=== PATIENT | female | born 1950 | race Caucasian/White ===

== ENCOUNTER 2017-12-22 01:11 | Outpatient (CLI) | payer MEDICARE, OTHER, SELFPAY ==
[2017-12-22 09:01] LABS: Anion Gap 7.6 mmol/L (3-11); BUN 14 mg/dL (7-18); CO2 31.4 mmol/L (21.0-32.0); CREATININE 0.77 mg/dL (0.55-1.02); Calcium 9.7 mg/dL (8.5-10.1); Chloride 103 mmol/L (98-107); Cholesterol 217 mg/dL (50-200); Glucose 80 mg/dL (70-100); HDL Cholesterol 54 mg/dL (40-60); LDL CHOLESTEROL 144 mg/dL (<100); Sodium 142 mmol/L (136-145); Triglyceride 96 mg/dL (30-150)
[2017-12-23 10:19] LABS: Hepatitis C Ab w Rflx HCV PCR Negative (NEGAT)
== END 2017-12-22 01:31 ==
PROVIDERS: PCP Nurse Practitioner Family; Visit Provider Nurse Practitioner Family
DX: I10 Essential (primary) hypertension (principal); E78.5 Hyperlipidemia, unspecified; Z11.59 Encounter for screening for other viral diseases
CPT/HCPCS: 36415; 80048; 80061; 83721; 86803

== ENCOUNTER 2018-11-28 02:09 | Outpatient (CLI) | payer MEDICARE, OTHER, SELFPAY ==
[2018-11-28 11:13] LABS: Anion Gap 7.3 mmol/L (3-11); BUN 15 mg/dL (7-18); CO2 31.7 mmol/L (21.0-32.0); CREATININE 0.65 mg/dL (0.55-1.02); Calcium 9.3 mg/dL (8.5-10.1); Calculated LDL 126 mg/dL; Chloride 104 mmol/L (98-107); Cholesterol 195 mg/dL (50-200); Glucose 85 mg/dL (70-100); HDL Cholesterol 53 mg/dL (40-60); Potassium 4.7 mmol/L (3.5-5.1); Sodium 143 mmol/L (136-145); Triglyceride 84 mg/dL (30-150)
== END 2018-11-28 02:29 ==
PROVIDERS: PCP Nurse Practitioner Family; Visit Provider Nurse Practitioner Family
DX: E78.5 Hyperlipidemia, unspecified (principal); I10 Essential (primary) hypertension
CPT/HCPCS: 36415; 80048; 80061

== ENCOUNTER 2019-01-16 01:09 | Outpatient (CLI) | payer MEDICARE, OTHER, SELFPAY ==
--- NOTE | 2019-01-16 16:40 | DI.DEXA_ITS ---
EXAM: XR DEXA BONE DENSITY W/WO CAL INDICATION: Postmenopausal Z78.0. COMPARISON: No exams were available for comparison FINDINGS: The CAL image shows no evidence of compression fractures. The bone mineral density measurements of the lumbar spine correspond to a total T-score of -1.4, in the osteopenic range. There are degenerat valarie changes and possible laminectomy defects at L3 and L4. The least dense vertebral body is L1 with a T-score of -2.5. Bone mineral density measurements of the left hip correspond to a total T-score of -2.4, in the osteopenic range. The bone mineral density measurements of the left forearm correspo nd to a total T-score of the distal third of -2.9, in the osteoporotic range. IMPRESSION: Osteopenia of the left hip and lumbar spine. Osteoporosis of the left forearm.
== END 2019-01-16 01:29 ==
PROVIDERS: PCP Nurse Practitioner Family; Visit Provider Nurse Practitioner Family
DX: M81.0 Age-related osteoporosis without current pathological fracture (principal); M85.88 Other specified disorders of bone density and structure, other site; Z78.0 Asymptomatic menopausal state
CPT/HCPCS: 77080

== ENCOUNTER 2019-02-09 12:45 | Outpatient (CLI) | payer MEDICARE, OTHER, SELFPAY ==
[2019-02-11 10:12] LABS: Vitamin D 25 Total 35.8 ng/ml (30-100)
== END 2019-02-09 13:05 ==
PROVIDERS: PCP Nurse Practitioner Family; Visit Provider Nurse Practitioner Family
DX: M81.0 Age-related osteoporosis without current pathological fracture (principal)
CPT/HCPCS: 36415; 82306

== ENCOUNTER 2019-12-07 02:24 | Outpatient (CLI) | payer MEDICARE, OTHER, SELFPAY ==
[2019-12-07 08:39] LABS: Anion Gap 6.6 mmol/L (3-11); BUN 16 mg/dL (7-18); CO2 28.4 mmol/L (21.0-32.0); CREATININE 0.69 mg/dL (0.55-1.02); Calcium 9.4 mg/dL (8.5-10.1); Chloride 105 mmol/L (98-107); Glucose 86 mg/dL (74-106); Sodium 140 mmol/L (136-145)
== END 2019-12-07 02:44 ==
PROVIDERS: PCP Nurse Practitioner Family; Visit Provider Nurse Practitioner Family
DX: I10 Essential (primary) hypertension (principal)
CPT/HCPCS: 36415; 80048

== ENCOUNTER 2020-10-01 15:47 | Outpatient (CLI) | payer MEDICARE, OTHER, SELFPAY ==
[2020-10-01 13:26] LABS: CREATININE 0.6 mg/dL (0.55-1.02)
[2020-10-01] MEDS: Normal Saline - Diluent 50 ML VIAL IV (14:18)
--- NOTE | 2020-10-01 14:26 | DI.CT_ITS ---
Exam(s) CT ABDOMEN PELVIS W EXAM: CT ABDOMEN PELVIS W CLINICAL HISTORY: ABD PAIN R10.9 H/O DIVERTICULITIS. TECHNIQUE: Imaging Protocol: Axial computed tomography images with coronal and sagittal reformatted images were created and reviewed CONTRAST MATERIAL: Intravenous: Omnipaque 100cc Oral: None COMPARISON: No exams were available for comparison FINDINGS: VISUALIZED LUNG BASES: No nodules nor pleural effusions evident. ABDOMEN: There is no ascites. LIVER: There is a 1.5 x 1.2 cm hypodensity in the left hepatic lobe subcapsular location, benign appe arance, either cyst or hemangioma. Difficult to differentiate single-phase study. No focal findings in the right hepatic lobe. No dilatation of intrahepatic ducts. GALLBLADDER/BILIARY: No obvious gallbladder pathology. CBD is not dilated. PANCREAS: No evidence of pancreatic mass nor dilatation of the pancreatic duct. SPLEEN: Spleen is not enlarged. No obvious intrasplenic lesions. Splenic and portal veins are paten t. ADRENALS: There are no significant adrenal masses. KIDNEYS:No cysts evident. No solid renal masses. No calculi nor hydronephrosis.. ABDOMINAL AORTA: Calcified but not enlarged LYMPH NODES:There is no retroperitineal nor paraaortic adenopathy. ABDOMINAL WALL: No evidence of significant anterior abdominal wall hernia. GI: Abundant fecal material noted in the colon. Appendix appears unremarkable. There is an abnormal appearing somewhat edematous bowel loop in the right-side of the abdomen noted which appears to be a small bowel loop. This appears significantly edematous. Also some surrounding streaking. There div erticuli in the small bowel loop noted. PELVIS: GI: No evidence of appendicitis.No evidence of sigmoid diverticulitis. LYMPH NODES: There is no intrapelvic nor inguinal adenopathy. REPRODUCTIVE: Age appropriate. No abnormal adnexal masses nor free fluid in the cul-de-sac. URINARY BLADDER: No calculi nor obvious masses evident OSSEOUS: Multilevel chronic degenerative disc disease lumbar spine. No significant osseous lesions. IMPRESSION: 1. No evidence of appendicitis nor sigmoid diverticulitis. However, there is an edematous abnormal ap pearing small bowel loop in the right-side of the abdomen which exhibits diverticuli and wall edema. There is surrounding streaking in the mesenteric fat. Surgical consultation is recommended. 2. Solitary benign appearing subcapsular 15 x 12 millimeter left hepatic lobe lesion as described abo ve, probably an hemangioma. 3. Close follow-up recommended. Recommend surgical consultation. RADIATION DOSE DELIVERED: 635.16mGy.cm Total DLP DATA REPOSITORY: All CT scans at this facility are submitted to the National Radiology Data Registry (NRDR) Dose Index Registry (DIR) with the [employer] (ACR). RADIATION OPTIMIZATION: All CT scans at this facility use at least one of these dose optimization te chniques: automated exposure control; mA and/or kV adjustment per patient size (includes targeted exa ms where dose is matched to clinical indication); or iterative reconstruction.
[2020-10-01] MEDS: Breeza Beverage 473 ML BTL PO ×2 (14:30→14:34)
[2020-10-01] MEDS: Omnipaque 350 MG/ML 100 ML BTL IJ (14:30)
--- NOTE | 2020-10-01 15:26 | DI.VRAD_ITS ---
PROCEDURE INFORMATION: Exam: CT Abdomen And Pelvis With Contrast Exam date and time: 10/01/2020 2:28 PM Age: 70 years old Clinical indication: Abdominal pain TECHNIQUE: Imaging protocol: Computed tomography of the abdomen and pelvis with contrast. Total images: 1165 COMPARISON: No relevant prior studies available. FINDINGS: Liver: There is a low-density lesion in the left liver, likely a cyst or hemangioma. Gallbladder and bile ducts: Normal. No calcified stones. No ductal dilation. Pancreas: Normal. No ductal dilation. Spleen: Normal. No splenomegaly. Adrenal glands: Normal. No mass. Kidneys and ureters: Normal. No hydronephrosis. Stomach and bowel: Unremarkable. No obstruction. No mucosal thickening. Appendix: No evidence of appendicitis. Intraperitoneal space: Unremarkable. No free air. No significant fluid collection. Vasculature: The aorta demonstrates moderate atherosclerotic calcification. Lymph nodes: Unremarkable. No enlarged lymph nodes. Urinary bladder: Unremarkable as visualized. Reproductive: Unremarkable as visualized. Bones/joints: Moderate degenerative changes. No acute fracture. Soft tissues: Unremarkable. IMPRESSION: No acute disease in abdomen or pelvis. Dictated and Authenticated by: Ramos Cm MD. Ordering:ALE Ford MD
== END 2020-10-01 16:07 ==
PROVIDERS: PCP Nurse Practitioner Family; Visit Provider Physician Assistant Medical
DX: Z13.9 Encounter for screening, unspecified (principal); K76.9 Liver disease, unspecified; K57.90 Diverticulosis of intestine, part unspecified, without perforation or abscess without bleeding; R60.0 Localized edema
CPT/HCPCS: 74177; 82565; J3490

== ENCOUNTER → 2020-10-02 10:01 | Outpatient (BNVA) | payer MEDICARE, OTHER, SELFPAY | PROVIDERS: PCP Nurse Practitioner Family; Referring Provider Nurse Practitioner Family; Visit Provider Surgery | DX: R93.89 Abnormal findings on diagnostic imaging of other specified body structures (principal); K57.12 Diverticulitis of small intestine without perforation or abscess without bleeding ==

== ENCOUNTER 2020-10-02 10:50 | Outpatient (REF) | payer MEDICARE, OTHER, SELFPAY ==
[2020-10-02 11:32] LABS: Abs Immature Grans 0.04 10^3/uL (0.0-0.06); Absolute Basophil Count 0.05 10^3/uL (0.0-0.2); Absolute Monocyte Count 0.82 10^3/uL (0.1-0.8); Absolute Neutrophil Count 10.56 10^3/uL (1.2-6.7); Basophils % 0.4; Eosinophils % 0.5; HCT 39.1 % (36.0-46.0); HGB 12.8 g/dL (11.2-15.7); Immature Grans % 0.3; MCH 29.1 pg (27.0-33.0); MCHC 32.7 % (32.0-36.0); MCV 88.9 fL (80-95); Monocytes % 6.3; Neutrophils % 81.5; Nucleated RBC 0 %; Platelet Count 166 10^3/uL (130-400); RDW 12.9 % (11.7-14.6); RDW-SD 42.1 fL; WBC 12.96 10^3/uL (4.4-10.8)
[2020-10-02 11:34] LABS: Absolute Eosinophil Count 0.06 10^3/uL (0.0-0.7); Absolute Lymphocyte Count 1.43 10^3/uL (1.2-3.4)
[2020-10-02 11:38] LABS: C-Reactive Protein 15.62 mg/dL (0.0-0.3)
[2020-10-02 16:27] LABS: BUN 13 mg/dL (7-18); CREATININE 0.8 mg/dL (0.55-1.02); Calcium 9.7 mg/dL (8.5-10.1); Chloride 102 mmol/L (98-107); Glucose 81 mg/dL (74-106); Magnesium 2.6 mg/dL (1.8-2.4); Sodium 139 mmol/L (136-145)
[2020-10-03 16:45] LABS: Prolactin 5.1 ng/mL (See Table)
== END 2020-10-02 10:51 | disposition home or self-care (01) ==
LOC: LBN 10:50
PROVIDERS: PCP Nurse Practitioner Family; Visit Provider Surgery
DX: K57.30 Diverticulosis of large intestine without perforation or abscess without bleeding (principal); K21.9 Gastro-esophageal reflux disease without esophagitis; R93.89 Abnormal findings on diagnostic imaging of other specified body structures; M81.0 Age-related osteoporosis without current pathological fracture; I10 Essential (primary) hypertension
CPT/HCPCS: 80048; 83735; 84146; 85025; 86140

== ENCOUNTER 2020-10-02 11:33 | Inpatient (IN) | payer MEDICARE, OTHER, SELFPAY ==
--- NOTE | 2020-10-02 12:49 | HPE_ITS ---
Date of service: 10/02/20 Time of Service: 12:49 Assessment and Plan Assessment and plan (1) Chronic GERD: Status: Acute (2) Osteoporosis: Status: Chronic (3) Glaucoma of right eye: Status: Chronic (4) GERD with esophagitis: Status: Chronic (5) Essential hypertension: Status: Chronic (6) Diverticulitis of jejunum: Status: Acute Assessment and plan: Antibiotics Supportive care We will monitor. If her condition does not improve she may require surgical intervention. History of Present Illness Consults Consult date: 10/02/20 Narrative: Patient was seen in the office today and admitted from my office. Her signs and symptoms started on Tuesday. She had some sharp abdominal pain. It is in the mid umbilical portion of the abdomen. Eating makes it worse. She has no appetite. She is nauseated when she eats. She has not had any diarrhea or rectal bleeding. She has not vomited. She felt chills. Tuesday the pain was very sharp and she went to urgent care. She did have a CT with contrast. They did not do a CBC. She is not febrile today in the office. I did review the CT with Dr. Beyer from radiology and it does appear that she has an infected diverticulum of the jejunum. Patient has localized rebound and guarding in the periumbilical region. She does have good bowel sounds. She is passing gas. She is not distended and has no diffuse peritonitis. She is not vomiting. She does have a low-grade white count and a elevated CRP. She denies any trauma. She denies any travel. No one else at home is ill. She has had no recent changes in her medications. She has not been camping. She has never had anything like this before. She does have a history of sigmoid diverticula and diverticulitis. She is not had any prior abdominal surgery. She will be admitted to the hospital for IV antibiotics and observation. Review of Systems All systems reviewed & are unremarkable except as noted in HPI and below [facility] Medical History Essential hypertension GERD with esophagitis Glaucoma of right eye Hyperlipidemia Osteoporosis Dexa 01/2019 Primary osteoarthritis of right knee Sigmoid diverticulosis Surgical History History of bilateral tubal ligation (~12/1978) History of esophagogastroduodenoscopy (EGD) (01/19/13) S/P colonoscopy (01/19/13) S/P excision of lipoma (~2002) of left medial thigh Family History Mother , at 91 Depression Hyperlipidemia Breast cancer x 2; in her 40s Stroke Hypertension Father No problems noted. Son No problems noted. Son No problems noted. Maternal Grandfather , in his 70s of [place] Myocardial infarction Hyperlipidemia Maternal Grandmother Hyperlipidemia Heart disease Hypertension Cancer Doesn't know which type Paternal Grandfather No problems noted. Paternal Grandmother No problems noted. Social History Smoking/Tobacco Use Status: Former Tobacco Use Tobacco: How many years used: 7 (quit smoking in 1974. ) Smoking risk assessment performed?: Yes Alcohol Intake: current Alcohol Intake frequency: a few times a month Drug use: Never Substance use type: does not use Pets and animals: No What type of physical activity do you participate in: none Dinora/Mu-Ism: Confucianism Special dinora needs: No Female Reproductive History Menstrual Menopause type: natural History History 2 Para 2 Hx # Term Pregnancies Multiple births Hx # Pregnancies Ectopic pregnancies AB induced Hx Number of Living Children 2 AB spontaneous Meds Allergies and Home Medications Allergies Allergy/AdvReac Type Severity Reaction Status Date / Time ciprofloxacin Allergy Severe effects Verified 10/02/20 10:11 my tendons, causes pain in legs. Home Medications Medication Instructions Recorded Confirmed Type timolol maleate 1 drp OPHTHALMIC BID drp 11/03/16 12/13/19 History latanoprost 0.005 % eye drops 1 drp OP BID ml 12/06/18 12/13/19 History Daily calcium and D3 600 mg PO 12/13/19 History diphenhydramine 25 1 tab PO ONCE tab 12/13/19 12/13/19 History mg-acetaminophen 500 mg tablet famotidine 10 mg tablet 10 mg PO DAILY PRN 12/13/19 12/13/19 History multivitamin 1 tab PO DAILY 12/13/19 12/13/19 History naproxen sodium 220 mg capsule 220 mg PO BID PRN 12/13/19 12/13/19 History simethicone 125 mg capsule 125 mg PO QD-BID PRN 12/13/19 12/13/19 History vit C 250 mg-vit E 90 mg-zinc 40 1 tab PO ONCE cap 12/13/19 12/13/19 History mg-copper 1 [id number] capsule varicella-zoster glycoE [id number] 0.5 ml IM ONCE #1 each 12/14/19 12/14/19 Rx adj(PF) 50 mcg/0.5 mL IM suspyonatan alendronate 70 mg tablet 70 mg PO QWEEK #13 tab 05/09/20 Rx lisinopril 2.5 mg tablet 2.5 mg PO DAILY #90 tab-cap 06/23/20 Rx Exam Const General: cooperative, healthy appearing, comfortable, no acute distress, well developed and well groomed Nutritional Appearance: average body habitus and well nourished Orientation: alert, awake and oriented x3 HENMT Head: normal to inspection, normocephalic and atraumatic Ears: hearing grossly normal bilaterally and external ears normal General nose exam: external nose normal Face and sinus: normal facial exam and sinuses nontender Mouth: oral mucosae normal, lip normal, tongue normal and moist mucous membranes Teeth and gingiva: dentition normal Eyes General: appearance normal, both eyes and all related structures Conjunctivae: conjunctivae normal Sclera: sclerae normal Pupils: PERRL Neck Neck: normal visual inspection and full ROM Chest Chest: normal inspection of the chest Resp Effort & Inspection: normal respiratory effort, able to speak in complete sentences, no cough, no nasal flaring, not tachypneic and no use of accessory muscles Auscultation: clear to auscultation bilaterally, no rales, no rhonchi and no wheezes Cardio Jugular venous pressure: no JVD Rate: regular rate Rhythm: regular rhythm GI Inspection: normal to inspection, no edema and distended Palpation: soft, no masses, tender periumbilically and No ascites Auscultation: normal bowel sounds Skin General skin exam: no rashes or lesions noted Trauma: no lacerations or abrasions Neuro General: patient alert, patient oriented x3, oriented, gait normal, moves all extremities, no focal motor deficits and CN's II-XI intact bilaterally Cognition: normal cognition Speech: speech normal Gait: normal gait Motor: muscle tone normal throughout Extrem General: normal to inspection, full ROM and no clubbing, cyanosis or edema Psych Appearance: grossly normal and well kempt Mental Status: mental status grossly normal Speech and Movement: speech and movement normal Affect: normal affect
[2020-10-02 13:40] VITALS: BP 123/86; PULSE 83; RESP 18; TEMP 36.4; O2SAT 96
[2020-10-02] MEDS: Pantoprazole 40 MG VIAL IVP (14:30)
[2020-10-02] MEDS: Normal Saline Flush 10 ML SYR IVP (14:30)
[2020-10-02] MEDS: Normal Saline 1,000 ML 75 ML IV (14:31)
[2020-10-02] MEDS: PIPERACILLIN/TAZO 3.375 GM in Normal Saline 50 ML IVPB ×2 (14:31→18:21)
[2020-10-02 14:39] VITALS: BP 123/86; PULSE 83; RESP 18; TEMP 36.4; O2SAT 96
[2020-10-02 15:07] LABS: Source Nasal/Nares
[2020-10-02 16:00] LABS: COVID-19 PCR Negative (Negative)
[2020-10-02 16:45] VITALS: BP 117/71; PULSE 73; RESP 16; TEMP 36.9; O2SAT 100
[2020-10-03 01:08] VITALS: BP 112/62; PULSE 84; RESP 18; TEMP 36.7; O2SAT 97
[2020-10-03] MEDS: PIPERACILLIN/TAZO 3.375 GM in Normal Saline 50 ML IVPB ×2 (02:37→09:51)
[2020-10-03] MEDS: Normal Saline 1,000 ML 75 ML IV (02:44)
[2020-10-03 07:29] LABS: Abs Immature Grans 0.01 10^3/uL (0.0-0.06); Absolute Basophil Count 0.04 10^3/uL (0.0-0.2); Absolute Eosinophil Count 0.12 10^3/uL (0.0-0.7); Absolute Lymphocyte Count 1.36 10^3/uL (1.2-3.4); Absolute Monocyte Count 0.63 10^3/uL (0.1-0.8); Absolute Neutrophil Count 4.79 10^3/uL (1.2-6.7); Basophils % 0.6; Eosinophils % 1.7; HCT 32.8 % (36.0-46.0); HGB 10.8 g/dL (11.2-15.7); Immature Grans % 0.1; Lymphocytes % 19.6; MCH 29.4 pg (27.0-33.0); MCHC 32.9 % (32.0-36.0); MCV 89.4 fL (80-95); MPV 11.1 fL (8.0-11.0); Monocytes % 9.1; Neutrophils % 68.9; Nucleated RBC 0 %; Platelet Count 139 10^3/uL (130-400); RBC 3.67 10^6/uL (3.93-5.22); RDW 12.8 % (11.7-14.6); RDW-SD 42.4 fL; WBC 6.95 10^3/uL (4.4-10.8)
[2020-10-03 07:46] LABS: BUN 10 mg/dL (7-18); C-Reactive Protein 10.16 mg/dL (0.0-0.3); CREATININE 0.6 mg/dL (0.55-1.02); Chloride 109 mmol/L (98-107); Glucose 80 mg/dL (74-106); Potassium 3.9 mmol/L (3.5-5.1); Sodium 144 mmol/L (136-145)
[2020-10-03 08:10] VITALS: BP 127/78; PULSE 70; RESP 18; TEMP 36; O2SAT 98
[2020-10-03] MEDS: Pantoprazole 40 MG VIAL IVP (08:49)
[2020-10-03] MEDS: Normal Saline Flush 10 ML SYR IVP (08:50)
[2020-10-03] MEDS: Enoxaparin 40 MG/0.4 ML SYR SC (08:50)
[2020-10-03] MEDS: Timolol 0.5% 5 ML BTL OP (08:50)
--- NOTE | 2020-10-03 11:52 | W.PM.PROGNOT ---
Date of Service Date of service: 10/03/20 Time of Service: 09:53 Assessment and Plan Assessment and plan (1) Diverticulitis of jejunum: Status: Acute Assessment and plan: -Significant clinical improvement -Continue IV antibiotics while inpatient -Likely DC on PO antibiotics and bland/soft diet -AM labs reviewed, leukocytosis resolved, CRP trending down -PRN analgesia as written -Continue supportive care, no surgical intervention as long as clinical improvement continues (2) Chronic GERD: Status: Acute (3) Essential hypertension: Status: Chronic (4) Hyperlipidemia: Status: Chronic Qualifiers: Hyperlipidemia type: unspecified Qualified Code(s): E78.5 - Hyperlipidemia, unspecified Subjective Subjective Interval history since last seen: Patient reports significant overall improvement in abdominal discomfort. She is tolerating a liquid diet, denies and nausea or vomiting. Last BM yesterday AM. Reports she has been under an immense amount of stress recently at home and being in the hospital has provided her with some relief of that. Exam Const General: cooperative, healthy appearing, comfortable and no acute distress Resp Effort & Inspection: normal respiratory effort and no audible wheezes Cardio Rate: regular rate Rhythm: regular rhythm GI Inspection: normal to inspection and non-distended Palpation: soft, no guarding and nontender Percussion: normal to percussion Objective Last Vital Signs Temp 96.8 F L 10/03/20 08:10 Pulse 70 10/03/20 08:10 Resp 18 10/03/20 08:10 BP 127/78 10/03/20 08:10 Pulse Ox 98 10/03/20 08:10 Laboratory Results - last 24 hr 10/02/20 10/03/20 10/03/20 14:58 06:50 06:50 WBC 6.95 D RBC 3.67 L Hgb 10.8 L Hct 32.8 L MCV 89.4 MCH 29.4 MCHC 32.9 RDW 12.8 Plt Count 139 MPV 11.1 H Immature Gran % 0.1 Neutrophils % 68.9 Lymphocytes % 19.6 Monocytes % 9.1 Eosinophils % 1.7 Basophils % 0.6 Nucleated RBC % 0 Absolute Neutrophils 4.79 Absolute Lymphocytes 1.36 Absolute Monocytes 0.63 Absolute Eosinophils 0.12 Absolute Basophils 0.04 Sodium 144 Potassium 3.9 Chloride 109 H Carbon Dioxide 26.0 Anion Gap 9.0 BUN 10 Creatinine 0.6 Estimated GFR/1.73 m2 >= 60.00 Glucose 80 Calcium 8.0 L C-Reactive Protein 10.16 H COVID-19 Source Nasal/Nares SARS-CoV-2 (PCR) Negative
--- NOTE | 2020-10-03 12:20 | INITIAL_ITS ---
- If Service Date Differs Date of service: 10/03/20 Time of Service: 12:20 Care Management Initial Assess REASON FOR HOSPITALIZATION:: Jejunal Diverticulitis PAST MEDICAL HISTORY/PAST SURGICAL HISTORY:: Medical History . Essential hypertension. GERD with esophagitis. Glaucoma of right eye. Hyperlipidemia. Osteoporosis. Dexa 01/2019. Primary osteoarthritis of right knee. Sigmoid diverticulosis. Julien rgical History . History of bilateral tubal ligation (~12/1978). History of esophagogastroduodenoscopy (EGD) (01/19/13). S/P colonoscopy (01/19/13). S/P excision of lipoma (~2002) PREVIOUS FUNCTIONAL STATUS/SOCIAL/FAMILY SUPPORTS:: Stephanie lives in [facility] with her Scott. They have 2 adult sons who are very supportive. 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 She is independent with all care and activities and receives no community services. CURRENT FUNCTIONAL STATUS:: Thao was dressed and ready for discharge when CM met with her. She was pleasant and engaged readily with CM. She had completed her antibiotic treatment and was anxious to go home. Thao assured CM that she has good support at home and will not require any services at discharge. ADVANCE DIRECTIVES:: None on file Has patient been provided with info about the portal/API?: Yes Did the patient sign up for the portal?: No CODE STATUS:: Full Code INSURANCE COVERAGE / FINANCIAL ISSUES:: Medicare. [employer] PRIMARY CARE PHYSICIAN:: Laurence Berry POTENTIAL DISCHARGE NEEDS:: Follow up with PCP and discharge plan of care PATIENT/FAMILY EDUCATION NEEDS:: Review of discharge instructions, medications, follow up plan, limitations, activity, Ask Me Three TRANSPORTATION:: via private vehicle with family PLAN:: Thao will be discharged home with no new services. She will follow up with her community providers and plan of care and transport with her .
--- NOTE | 2020-10-03 14:42 | CHAPLAIN ---
Stephanie was sitting on the edge of her bed using her IS, because she choose to, she said. She was very pleasant and said she appreciated knowing that there is a mold designer available to her.
--- NOTE | 2020-10-03 15:09 | W.PM.DS.N ---
Date of service: 10/03/20 Time of Service: 15:09 DS: Diagnosis Discharge Diagnosis (1) Diverticulitis of jejunum: Status: Acute (2) Chronic GERD: Status: Acute (3) Essential hypertension: Status: Chronic (4) Hyperlipidemia: Status: Chronic Discharge Plan Disposition Patient Disposition: HOME Condition: Improving Discharge Details Reason For Visit: Jejunal Diverticulitis Admit Date/Time: 10/02/20 11:33 Admit Provider: Jenni Ramos Attending Provider: Jenni Ramos Primary Care Provider: Leanne Berry Home Meds and New Rx's Prescriptions: New amoxicillin-pot clavulanate [Augmentin] 875-125 mg tablet 1 tab PO Q12H 6 Days Qty: 12 RF: 0 Bio-K plus 50 billion cell capsule,delayed release(DR/EC) 1 cap PO DAILY Qty: 30 RF: 0 dicyclomine 10 mg capsule 10 mg PO QID PRN (Reason: abdominal discomfort) Qty: 30 RF: 0 Continued latanoprost 0.005 % drops 1 drp OP BID RF: 0 multivitamin [Daily Multi-Vitamin] Tablet 1 tab PO DAILY RF: 0 PreserVision AREDS-2 100-870-90-1 bw-jrka-mh-mg capsule 1 tab PO ONCE RF: 0 naproxen sodium [Aleve] 220 mg capsule 220 mg PO PRN PRNRF: 0 famotidine [Acid Family Dinner Service Specialist (famotidine)] 10 mg tablet 10 mg PO PRN PRNRF: 0 timolol maleate 5 ML gel forming solution 1 drp Ophthalmic BID RF: 0 alendronate 70 mg tablet 70 mg PO QWEEK Qty: 13 RF: 4 lisinopril 2.5 mg tablet 2.5 mg PO DAILY Qty: 90 RF: 4 Discharge Instructions Additional Instructions: Keep an ice bag on the incision. 20 minutes on and 20 minutes off. Ice keeps the swelling down and swelling causes pain. Make sure you wrap the ice pack in a towel and don't apply directly to the skin. -No driving x 24hrs or of you are taking pain medications. -tylenol or Bentyl for cramping. -Follow-up with Dr. Ramos 10/09 at 13:30pm. Have labs drawn prior to appt. -soft diet: No beef/pork raw vegetables x1 -week. Cooked vegetables are fine -no straining to move bowels -It is ok to bathe. -Protein supplements daily. You may find that your appetite is smaller. Eat 3-6 small meals throughout the day. It is important to drink lots of water after surgery, 6-10 glasses a day. -If you were given an incentive spirometry (breathing swimming pool salesperson?), continue to do this 10x/hour while awake. -We do want you up walking, at least 5-6 times per day. This is very important to prevent pneumonia and blood clots. You can climb stairs, take them slowly. -You may find that you are very tired after illness- this is normal. -Finish all the antibiotics that were prescribed. Probiotics and yogurt daily while on antibiotics. Gastrointestinal Soft Diet Overview Overview What is a gastrointestinal soft diet? This diet is soft in texture, low in fiber, and easy to digest. The goal is to decrease) in the bowel that may cause and discomfort. This diet is often used after abdominal surgery or as a transitional diet after flares. Meats & Meat Substitutes ? Foods Allowed: Chicken, turkey, fish, ground meats, eggs, creamy nut butters, tofu, skinless hot dogs, sausage patties without whole spices ? Foods to Avoid : Tough, fibrous meats with gristle, meat with casings (hot dogs, sausage, kielbasa), lunch meats with whole spices, shellfish, beans, chunky peanut butter, nuts Fruits and Juices ? Foods Allowed: Fruit juices without pulp, banana, avocado, applesauce, canned peaches and pears, cooked fruit without the skin/seeds ? Foods to Avoid: Juices with pulp, fresh fruit (except banana and avocado), dried fruits, canned fruit cocktail and pineapple, coconut, frozen/thawed berries Vegetables ? Foods Allowed: Well-cooked or canned vegetables, potatoes without skin, tomato sauces, vegetable juice ? Foods to Avoid: Raw vegetables, all corn, all mushrooms, stewed tomatoes, potato skins, stir-marie vegetables, sauerkraut, pickles, olives, all dried beans, peas, and legumes Cereals and Grains ? Foods Allowed: Low- fiber dry or cooked cereals (less than 2 grams fiber per serving), white rice, pasta, macaroni, or noodles ? Foods to Avoid: Cereals with nuts, berries, dried fruits, whole grain cereals, bran cereals, granola, brown or wild rice, whole grain pasta Breads and Crackers ? Foods Allowed: no bread/crackers/chips. ? Foods to Avoid: Whole grain breads- including white whole grain; bread/ rolls with raisins, nuts or seeds, multi-grain crackers Dairy ? Foods Allowed: Milk, cheese, yogurt, milkshakes, pudding, ice cream, cottage cheese, sherbet ; lactose free or low lactose versions if lactose intolerant ? Foods to Avoid: Dairy product mixed with fresh fruit (except banana), berries, nuts or seeds Desserts ? Foods Allowed: Plain cake, pudding, custard, ice cream, sherbet, gelatin, fruit whips ? Foods to Avoid: Any dessert that contains nuts, dried fruits, coconut, or fruits with seeds Herbs and Spices ? Foods Allowed: All ground spices or herbs, salt ? Foods to Avoid: Whole spices such as peppercorns, whole cloves, anise seeds, celery seeds, jordyn, fer seeds, and fresh herbs Snacks/Other Foods ? Foods Allowed: Sugar, honey, jelly, mayonnaise, mustard, soy sauce, oil, butter, margarine, marshmallows, cookies without dried fruits or nuts, snack chips and pretzels using refined flours ? Foods to Avoid: Carbonated beverages, jams or jellies with seeds, popcorn After several weeks, slowly start to reintroduce the ?Foods to Avoid? back into your diet unless your doctor has told you otherwise. Try a small portion of one of these foods each day. If it does not bother you within 24 hours, it can be added to your diet. Continue to add new foods in this way. Some people may continue to have food sensitivities and may need to continue to avoid certain foods. If you cannot tolerate a food, avoid that food for a few weeks before you try it again. Guidelines when eating 1. Avoid any food that you cannot tolerate or that causes gas, bloating, or stomach pain. 2. Make time for your meals. Do not eat while you are in a hurry. Cut your food into small pieces. Chew each bite to a mashed potato consistency. Do not eat when you cannot concentrate on chewing well. 3. Drink at least 6-8 cups of fluid per day Fluids include: water, coffee, tea, juice, milk, popsicles, soups, gelatin, pudding, ice cream, sherbet, and yogurt. In addition, choose caffeine-free beverages more often, especially if you are having diarrhea. 4. A daily multivitamin may be recommended if diet is limited in amounts or variety of foods. Do not take any herbal supplements without first checking with your doctor. Activity:: see above Equipment/Supplies:: No Equipment Needed Diet:: soft diet x 1 week DS: Summary Time Spent with Patient providing and/or coordinating discharge services: Less than 30 minutes Status at Discharge Functional status at discharge: independent ambulation Overall status at discharge: patient is progressing back to baseline Mental Status: mental status grossly normal Speech and Movement: speech and movement normal Mood: congruent mood Affect: normal affect Exam Psych Mental Status: mental status grossly normal Speech and Movement: speech and movement normal Mood: congruent mood Affect: normal affect DS: Data Vitals/I&O Vitals and I&O: Vital Signs Temperature 36.0 C L 10/03/20 08:10 Temperature Source Tympanic 10/03/20 08:10 Pulse 70 10/03/20 08:10 Pulse Rhythm Regular 10/03/20 08:46 Respiratory Rate 18 10/03/20 08:10 Respiratory Effort Non-Labored 10/03/20 08:46 Respiratory Depth Normal 10/03/20 08:46 Respiratory Pattern Normal 10/03/20 08:46 Blood Pressure 127/78 10/03/20 08:10 Pulse Oximetry 98 10/03/20 08:10 Oxygen Delivery Method Room Air 10/03/20 08:10 Oxygen Flow Rate 0 10/03/20 08:10 Pain Level 0 10/03/20 11:36 Comment 10/03/20 11:36 Intake & Output 10/02/20 10/03/20 10/03/20 23:59 11:59 23:59 Intake Total 1440 / 1440 2000.00 / 2300.00 300 / 2300.00 Output Total 1800 / 1800 1300 / 1300 Balance -360 / -360 700.00 / 1000.00 300 / 1000.00 Weight 57.2 kg Intake: IV 130 / 130 1520.00 / 1520.00 Oral 1310 / 1310 480 / 780 300 / 780 Output: Urine 1800 / 1800 1300 / 1300 Other: Urine Color Yellow Yellow Urine Appearance Clear Clear Urine Odor None Normal Comment Void x1 in the toilet. Voiding Methods Toilet Toilet Data Completed and Pending Labs on day of discharge: Labs from last 24 hours 10/03/20 10/03/20 10/02/20 06:50 06:50 14:58 WBC 6.95 D RBC 3.67 L Hgb 10.8 L Hct 32.8 L MCV 89.4 MCH 29.4 MCHC 32.9 RDW 12.8 Plt Count 139 MPV 11.1 H Immature Gran % 0.1 Neutrophils % 68.9 Lymphocytes % 19.6 Monocytes % 9.1 Eosinophils % 1.7 Basophils % 0.6 Nucleated RBC % 0 Absolute Neutrophils 4.79 Absolute Lymphocytes 1.36 Absolute Monocytes 0.63 Absolute Eosinophils 0.12 Absolute Basophils 0.04 Sodium 144 Potassium 3.9 Chloride 109 H Carbon Dioxide 26.0 Anion Gap 9.0 BUN 10 Creatinine 0.6 Estimated GFR/1.73 m2 >= 60.00 Glucose 80 Calcium 8.0 L C-Reactive Protein 10.16 H SARS-CoV-2 (PCR) Negative [facility] Medical History Essential hypertension GERD with esophagitis Glaucoma of right eye Hyperlipidemia Osteoporosis Dexa 01/2019 Primary osteoarthritis of right knee Sigmoid diverticulosis Surgical History History of bilateral tubal ligation (~12/1978) History of esophagogastroduodenoscopy (EGD) (01/19/13) S/P colonoscopy (01/19/13) S/P excision of lipoma (~2002) of left medial thigh Family History Mother , at 91 Depression Hyperlipidemia Breast cancer x 2; in her 40s Stroke Hypertension Father No problems noted. Son No problems noted. Son No problems noted. Maternal Grandfather , in his 70s of [place] Myocardial infarction Hyperlipidemia Maternal Grandmother Hyperlipidemia Heart disease Hypertension Cancer Doesn't know which type Paternal Grandfather No problems noted. Paternal Grandmother No problems noted. Social History Smoking/Tobacco Use Status: Former Tobacco Use Tobacco: How many years used: 7 Smoking risk assessment performed?: Yes Alcohol Intake: current Alcohol Intake frequency: a few times a month Alcohol type: beer Drug use: Never Substance use type: does not use Pets and animals: No What type of physical activity do you participate in: none Dinora/Anglican: Pentecostalism Special dinora needs: No Do you feel safe at home: Yes Do you feel safe in your relationship?: Yes Female Reproductive History Menstrual Menopause type: natural History History 2 Para 2 Hx # Term Pregnancies Multiple births Hx # Pregnancies Ectopic pregnancies AB induced Hx Number of Living Children 2 AB spontaneous
[2020-10-03 16:00] VITALS: BP 103/69; PULSE 76; RESP 18; TEMP 36.9; O2SAT 94
--- NOTE | 2020-10-04 00:10 | PDOC.CMDIS ---
- If Service Date Differs Date of service: 10/04/20 Time of Service: 17:00 LACE Index Scoring Tool - Questions: Length of Stay (in days): 1 Acuity (Admit via E.D.?): Yes E.D. Visits: 0 - Answers: Total Score: 4 Risk of Readmission: Low Risk Care Management Discharge Reason for Hospitalization: Jejunal Diverticulitis Discharge Plan: Thao will be discharged with no home services. She will follow up with her surgeon and plan of care and transport with her . Patient/Family Education Needs: Review of discharge instructions, medications, diet, activity and ask Me Three
== END 2020-10-03 16:51 | disposition home or self-care (01) | DRG 392 ==
PROVIDERS: Admitting Provider Surgery; PCP Nurse Practitioner Family; Visit Provider Surgery
DX: K57.12 Diverticulitis of small intestine without perforation or abscess without bleeding (principal); M81.0 Age-related osteoporosis without current pathological fracture; H40.89 Other specified glaucoma; K21.00 Gastro-esophageal reflux disease with esophagitis, without bleeding; I10 Essential (primary) hypertension; E78.5 Hyperlipidemia, unspecified; K57.30 Diverticulosis of large intestine without perforation or abscess without bleeding; Z87.891 Personal history of nicotine dependence; Z20.822 Contact with and (suspected) exposure to COVID-19
CPT/HCPCS: 36415; 80048; 87635; 99222; 99238; J1650; 85025; 86140; J2543

== ENCOUNTER 2020-10-09 03:48 | Outpatient (CLI) | payer MEDICARE, OTHER, SELFPAY ==
[2020-10-09 13:02] LABS: Abs Immature Grans 0.02 10^3/uL (0.0-0.06); Absolute Basophil Count 0.05 10^3/uL (0.0-0.2); Absolute Eosinophil Count 0.12 10^3/uL (0.0-0.7); Absolute Lymphocyte Count 1.95 10^3/uL (1.2-3.4); Absolute Monocyte Count 0.73 10^3/uL (0.1-0.8); Absolute Neutrophil Count 5.56 10^3/uL (1.2-6.7); Basophils % 0.6; Eosinophils % 1.4; HCT 37.4 % (36.0-46.0); HGB 12.5 g/dL (11.2-15.7); Immature Grans % 0.2; Lymphocytes % 23.1; MCH 29.6 pg (27.0-33.0); MCHC 33.4 % (32.0-36.0); MCV 88.4 fL (80-95); MPV 10.6 fL (8.0-11.0); Monocytes % 8.7; Nucleated RBC 0 %; Platelet Count 191 10^3/uL (130-400); RBC 4.23 10^6/uL (3.93-5.22); RDW 12.5 % (11.7-14.6); RDW-SD 40.3 fL; WBC 8.43 10^3/uL (4.4-10.8)
[2020-10-09 14:16] LABS: C-Reactive Protein 0.33 mg/dL (0.0-0.3)
== END 2020-10-09 03:49 | disposition home or self-care (01) ==
LOC: LBO 03:49
PROVIDERS: PCP Nurse Practitioner Family; Visit Provider Surgery
DX: K57.12 Diverticulitis of small intestine without perforation or abscess without bleeding (principal); E78.5 Hyperlipidemia, unspecified
CPT/HCPCS: 36415; 99212; 99213; 85025; 86140

== ENCOUNTER → 2021-03-16 14:18 | Outpatient (BNVA) | payer MEDICARE, OTHER, SELFPAY | PROVIDERS: PCP Nurse Practitioner Family; Referring Provider Nurse Practitioner Family; Visit Provider Surgery | DX: K21.9 Gastro-esophageal reflux disease without esophagitis (principal) | CPT/HCPCS: 99211; 99213 ==

== ENCOUNTER 2021-05-12 02:56 | Outpatient (CLI) | payer MEDICARE, OTHER, SELFPAY ==
[2021-05-12 09:30] LABS: ALT 24 U/L (14-59); AST 22 U/L (15-37); Albumin 4.2 g/dL (3.4-5.0); Alkaline Phosphatase 49 U/L (46-116); Anion Gap 8.8 mmol/L (3-11); BUN 19 mg/dL (7-18); Bilirubin, Total 0.4 mg/dL (0.2-1.0); CO2 28.2 mmol/L (21.0-32.0); CREATININE 0.7 mg/dL (0.55-1.02); Calcium 8.9 mg/dL (8.5-10.1); Calculated LDL 167 mg/dL (<100); Chloride 105 mmol/L (98-107); Cholesterol 240 mg/dL (<200); Glucose 79 mg/dL (74-106); HDL Cholesterol 54 mg/dL (40-60); Sodium 142 mmol/L (136-145); Total Protein 7.3 g/dL (6.4-8.2); Triglyceride 99 mg/dL (<150)
== END 2021-05-12 02:57 | disposition home or self-care (01) ==
LOC: LBO 02:56
PROVIDERS: PCP Nurse Practitioner Family; Visit Provider Nurse Practitioner Family
DX: E78.5 Hyperlipidemia, unspecified (principal); I10 Essential (primary) hypertension
CPT/HCPCS: 36415; 80053; 80061

== ENCOUNTER 2021-05-29 00:25 | Outpatient (CLI) | payer MEDICARE, OTHER, SELFPAY ==
--- NOTE | 2021-05-29 07:30 | DI.DEXA_ITS ---
Exam(s) XR DEXA BONE DENSITY W/WO CAL EXAM: XR DEXA BONE DENSITY W/WO CAL CLINICAL HISTORY: reassess bone density, on fosamax,osteoporosis,m81.0 TECHNIQUE: COMPARISON: Comparison examination is 01/16/2019. FINDINGS: Lateral Spine Image: Unremarkable. No compression deformities identified. Left hip: Total T-Score: -2.3. This compares to -2.4 on the prior examination for an improvement of 2.6% in the bone mineral density. Total Z-Score: -0.6 T- and Z-scores: Findings are consistent with osteopenia. Lumbar Spine: Total T-Score: -0.7. This compares to -1.4 on the prior examination for an improvement of 8.6% in the bone mineral density. Total Z-Score: 1.5 T- and Z-scores: Within normal limits. IMPRESSION: No evidence of osteoporosis.
== END 2021-05-29 00:45 ==
PROVIDERS: PCP Nurse Practitioner Family; Visit Provider Nurse Practitioner Family
DX: M81.0 Age-related osteoporosis without current pathological fracture (principal); M85.88 Other specified disorders of bone density and structure, other site; Z79.83 Long term (current) use of bisphosphonates
CPT/HCPCS: 77080

== ENCOUNTER 2022-05-25 01:20 | Outpatient (CLI) | payer MEDICARE, SELFPAY ==
--- NOTE | 2022-05-25 07:30 | DI.US_ITS ---
Exam(s) US SOFT TISSUE EXTREMITY EXAM: US SOFT TISSUE EXTREMITY CLINICAL HISTORY: suspected lipoma of left upper arm,r22.32. TECHNIQUE: Ultrasound was performed using standard protocol. COMPARISON: US RIGHT BREAST ULTRASOUND from 07/18/2007 FINDINGS: Sonographic assessment utilizing grayscale and color Doppler imaging was performed and targeted to th e area of clinical concern. Area of concern is in posterior aspect of the upper left arm where there is apparently a palpable lum p. At this level there is a finding measuring 5 cm x 3 cm x 1.2 cm which has the appearance of a probabl e lipoma. IMPRESSION: Probable lipoma with measurements as above. Recommend repeat scanning in 6 months to ensure size sta bility, earlier if clinically indicated. DATA REPOSITORY:
== END 2022-05-25 01:40 ==
LOC: DI 01:20
PROVIDERS: PCP Nurse Practitioner Family; Visit Provider Nurse Practitioner Family
DX: D17.22 Benign lipomatous neoplasm of skin and subcutaneous tissue of left arm
CPT/HCPCS: 76881

== ENCOUNTER 2022-06-03 03:27 | Outpatient (CLI) | payer MEDICARE, SELFPAY ==
[2022-06-03 08:03] LABS: ALT 28 U/L (14-59); AST 25 U/L (15-37); Albumin 4.1 g/dL (3.4-5.0); Alkaline Phosphatase 70 U/L (46-116); Anion Gap 7.3 mmol/L (3-11); BUN 15 mg/dL (7-18); Bilirubin, Total 0.3 mg/dL (0.2-1.0); CO2 29.7 mmol/L (21.0-32.0); CREATININE 0.8 mg/dL (0.55-1.02); Calcium 9.3 mg/dL (8.5-10.1); Calculated LDL 152 mg/dL (<100); Chloride 103 mmol/L (98-107); Cholesterol 234 mg/dL (<200); Estimated GFR 78.24 (mL/min/1.73m2); Glucose 91 mg/dL (74-106); HDL Cholesterol 54 mg/dL (40-60); Potassium 3.6 mmol/L (3.5-5.1); Sodium 140 mmol/L (136-145); Triglyceride 142 mg/dL (<150)
== END 2022-06-03 03:28 | disposition home or self-care (01) ==
LOC: LBO 03:29
PROVIDERS: PCP Nurse Practitioner Family; Visit Provider Nurse Practitioner Family
DX: E78.5 Hyperlipidemia, unspecified (principal); I10 Essential (primary) hypertension; M81.0 Age-related osteoporosis without current pathological fracture
CPT/HCPCS: 36415; 80053; 80061

== ENCOUNTER → 2022-06-04 11:12 | Outpatient (BNVA) | payer MEDICARE, SELFPAY | PROVIDERS: PCP Nurse Practitioner Family; Referring Provider Nurse Practitioner Family; Visit Provider Surgery | DX: D17.22 Benign lipomatous neoplasm of skin and subcutaneous tissue of left arm (principal) | CPT/HCPCS: 99212; 99214 ==

== ENCOUNTER → 2022-06-29 09:42 | Outpatient (BNVA) | payer MEDICARE, SELFPAY | PROVIDERS: PCP Nurse Practitioner Family; Referring Provider Nurse Practitioner Family; Visit Provider Surgery | DX: D17.22 Benign lipomatous neoplasm of skin and subcutaneous tissue of left arm (principal) | CPT/HCPCS: 11406 ==

== ENCOUNTER 2022-09-07 02:41 | Outpatient (CLI) | payer MEDICARE, SELFPAY ==
--- NOTE | 2022-09-07 08:00 | DI.MRI_ITS ---
Exam(s) MR BRAIN ORBIT FACE NECK WO/W EXAM: MR BRAIN ORBIT FACE NECK WO/W CLINICAL HISTORY: new right optic neuritis,? ms,H46.9 TECHNIQUE: Multiplanar multisequence MRI of the brain was performed. Both noninfused and contrast i nfused sequences were performed. IV Contrast injected was cc Dotarem. COMPARISON: No exams were available for comparison FINDINGS: CEREBRAL PARENCHYMA: No evidence of intracranial hemorrhage, mass effect nor shift of midline structu re. No extraaxial fluid collections. Lateral ventricles are slightly prominent. There is no significant focal signal abnormality in the cerebellar hemispheres nor within the kobe, m idbrain, and thalami. Is mild multifocal signal abnormality in the periventricular white matter not associated with hemorrh age, surrounding edema, enhancement nor restricted diffusion. DWI: No areas of restricted diffusion to suggest acute ischemic event. SWI: No microhemorrhages evident. There are no ring enhancing lesions in the brain. There is no abnormal meningeal enhancement. IAC'S: There are no masses in the cerebellopontine angles. PITUITARY GLAND: No mass nor parasellar abnormality. No obvious abnormality in the cavernous sinuses. FLOW VOIDS: The expected flow void are noted. No evidence of obvious aneurysm nor obvious vascular ma lformation. Uvkoem-hr-Wwhwig unremarkable. Posterior communicating artery noted on the right side of the [id number]-ce-Vwhqum. No aneurysms evident PARANASAL SINUSES: The visualized paranasal sinuses appear unremarkable. ORBITS: No obvious abnormal findings. No evidence of dysconjugate gaze nor proptosis. Anterior and posterior chambers unremarkable. Retro conal compartments unremarkable. Optic nerves unremarkable. No thickening of the optic nerves nor abnormal signal nor abnormal enhanc ement of the optic nerves. The optic chiasm appears unremarkable. Lacrimal glands unremarkable. Extraocular muscles unremarkable. IMPRESSION: 1. Mild ventriculomegaly. Mild periventricular signal abnormality consistent with chronic small vess el disease. 2. No abnormal enhancing intracranial findings. There are no ring enhancing lesions in the brain. 3. No significant findings in the orbits. Optic nerves appear symmetrical and unremarkable. No abn ormal signal nor abnormal enhancement evident within the optic nerves and optic chiasm. DATA REPOSITORY:
[2022-09-07 13:58] LABS: CREATININE 0.8 mg/dL (0.55-1.02); Estimated GFR 77.75 (mL/min/1.73m2)
[2022-09-07] MEDS: Normal Saline Flush 10 ML SYR IVP (14:25)
[2022-09-07] MEDS: Gadoterate meglumine 20 ML VIAL 11 ML IVP (14:26)
== END 2022-09-07 03:01 ==
PROVIDERS: PCP Nurse Practitioner Family; Visit Provider Nurse Practitioner Family
DX: I67.89 Other cerebrovascular disease (principal); G93.89 Other specified disorders of brain
CPT/HCPCS: 70553; 70543; 82565

== ENCOUNTER 2023-01-14 16:12 | Inpatient (IN) | payer MEDICARE, SELFPAY ==
[2023-01-14] VITALS (16 sets, daily range): BP systolic 100–154; BP diastolic 59–75; PULSE 78–90; RESP 16–17; TEMP 36.9; O2SAT 93–100
--- NOTE | 2023-01-14 16:28 | ED.GENADUL_ITS ---
Discharge Plan Disposition Patient Disposition: Admit to [facility] Condition: Fair Discharge Details Clinical Impression: Sigmoid diverticulitis Primary Care Provider: Leanne Berry ED Provider: Prasanna Ray and New Rx's Prescriptions: No Action latanoprost 0.005 % drops 1 drp OP QHS multivitamin [Daily Multi-Vitamin] Tablet 1 tab PO DAILY PreserVision AREDS-2 391-250-66-1 zg-kgbh-ss-mg capsule 1 tab PO ONCE Rx Instructions: administer with meals naproxen sodium [Aleve] 220 mg capsule 220 mg PO PRN PRN famotidine [Acid Drill Rig Operator Helper (famotidine)] 10 mg tablet 10 mg PO PRN PRN diphenhydramine-acetaminophen [Tylenol PM Extra Strength] 25-500 mg tablet 1 tab PO QHS PRN calcium carbonate-vitamin D3 [Calcium with Vitamin D] 600 mg-10 mcg (400 unit) tablet 1 tab PO DAILY simethicone [Gas Relief (simethicone)] 125 mg capsule 125 mg PO QD-BID PRN losartan 25 mg tablet 25 mg PO DAILY Qty: 90 3RF alendronate 70 mg tablet 70 mg PO QWEEK Qty: 13 3RF Patient Comments: Rx Instructions: Take 1 tablet once a week timolol maleate 0.5 % gel forming solution 1 drp Ophthalmic DAILY Bio-K plus 50 billion cell capsule,delayed release(DR/EC) 1 cap PO DAILY Qty: 30 0RF Rx Instructions: finish all Medical Decision Making Patient presenting with intermittent lower abdominal pain and bloody, mucousy stool. She reports similar event in 2020. Review of those records shows that she was admitted for diverticulitis of the jejunum. She was followed by Dr. Ramos from surgery. Patient's exam is reassuring here but will place IV, check laboratory studies and obtain CT of the abdomen pelvis. Patient's white count elevated to 14.7. Hemoglobin is normal. Chemistries, liver function normal. CT scan discussed with radiology. Patient appears to have diverticulitis as well as circumferential edema of the sigmoid colon for about 7 cm. Patient discussed with Dr. Ramos who is on-call for surgery. Patient will be started on ceftriaxone and Flagyl and admitted to surgical service. Patient aware of findings and plan and is agreeable to admission. She has not required pain medication here in the ED. Medical Records Medical records reviewed: Yes I reviewed the patient's medical records. Lab Data Lab results reviewed: Yes I reviewed the patient's lab results. HPI General Mode of arrival: ambulatory . Date/Time Provider Initiated Documentation: 01/14/23 16:27 . Limitations to Documentation: no limitations . Information obtained by: patient . HPI Narrative: Patient presents to ED from urgent care with complaint of intermittent lower abdominal pain and bloody, mucousy stool. Patient reports a similar type of presentation back in for which she was admitted. She denies any fever. She denies nausea vomiting but has lost her appetite over the last few days. She reports that she always seems to have mucousy stool but now it is bloody and she is having the intermittent lower abdominal pain. Denies any cough, chest pain, shortness of breath, back pain. Related Data Home Medications Medication Instructions Recorded Confirmed famotidine 10 mg tablet (Acid 10 mg PO PRN PRN 12/13/19 08/20/22 Drill Rig Operator Helper (famotidine)) multivitamin (Daily Multi-Vitamin 1 tab PO DAILY 12/13/19 08/20/22 tablet) naproxen sodium 220 mg capsule 220 mg PO PRN PRN 12/13/19 08/20/22 (Aleve) vit C 250 mg-vit E 90 mg-zinc 40 1 tab PO ONCE 12/13/19 08/20/22 mg-copper 1 lh-ifiqlx-fnejyy capsule (PreserVision AREDS-2) L. acidophilus,casei,rhamnosus 50 1 cap PO DAILY #30 caps 10/03/20 08/20/22 billion cell capsule,delayed release (Bio-K plus) calcium carbonate 600 mg-vitamin 1 tab PO DAILY 03/16/21 08/20/22 D3 10 mcg (400 unit) tablet (Calcium with Vitamin D) diphenhydramine 25 1 tab PO QHS PRN 03/16/21 08/20/22 mg-acetaminophen 500 mg tablet (Tylenol PM Extra Strength) simethicone 125 mg capsule (Gas 125 mg PO QD-BID PRN 03/16/21 08/20/22 Relief (simethicone)) latanoprost 0.005 % eye drops 1 drp ophthalmic (eye) QHS 05/10/22 08/20/22 losartan 25 mg tablet 25 mg PO DAILY #90 tabs 05/10/22 08/20/22 timolol maleate 0.5 % eye gel 1 drp ophthalmic (eye) DAILY 05/10/22 08/20/22 forming solution alendronate 70 mg tablet 70 mg PO QWEEK #13 tabs 06/24/22 08/20/22 Previous Rx's Medication Instructions Recorded L. acidophilus,casei,rhamnosus 50 1 cap PO DAILY #30 caps 10/03/20 billion cell capsule,delayed release (Bio-K plus) losartan 25 mg tablet 25 mg PO DAILY #90 tabs 05/10/22 alendronate 70 mg tablet 70 mg PO QWEEK #13 tabs 06/24/22 Allergies Allergy/AdvReac Type Severity Reaction Status Date / Time ciprofloxacin Allergy Severe effects Verified 01/14/23 17:35 my tendons, causes pain in legs. lisinopril AdvReac Mild Cough Verified 01/14/23 17:35 General Stated Complaint: Abd Prob AVELINA: 3 Review of Systems Narrative: Per HPI PFSH All Active Problems (Updated 01/14/23 @ 20:14 by Prasanna Ray MD) Sigmoid diverticulitis (Acute) Right optic neuritis (Acute) Lipoma of arm (Acute) GERD with esophagitis (Chronic) Glaucoma of right eye (Chronic) Primary osteoarthritis of right knee (Chronic) Medical History Osteoporosis Dexa 01/2019. Fosamax started 01/2020 Essential hypertension Hyperlipidemia Diverticulitis of jejunum Surgical History S/P colonoscopy (01/19/13) History of esophagogastroduodenoscopy (EGD) (01/19/13) History of bilateral tubal ligation (~12/1978) S/P excision of lipoma (~2002) of left medial thigh Family History Mother , at 91 Depression Hyperlipidemia Breast cancer x 2; in her 40s Stroke Hypertension Father No problems noted. Son No problems noted. Son No problems noted. Maternal Grandfather , in his 70s of [place] Myocardial infarction Hyperlipidemia Maternal Grandmother Hyperlipidemia Heart disease Hypertension Cancer Doesn't know which type Paternal Grandfather No problems noted. Paternal Grandmother No problems noted. Social History Smoking/Tobacco Use Status: Former Tobacco Use tobacco type: cigarettes Quit Date: 02/14/74 Tobacco: How many years used: 7 Second Hand Exposure: No Smoking risk assessment performed?: Yes Alcohol Intake: current Alcohol Intake frequency: holidays/special occasions only Alcohol type: beer Drug use: Never Substance use type: does not use Household members: spouse Housing: house Pets and animals: No Sexually active: Yes Current gender identity: female What is your relationship status?: How often do you talk on the phone with friends or family?: decline to answer How often do you get together with friends or relatives?: decline to answer How often do you attend orthodox or holiness services?: decline to answer Do you belong to any clubs or organized social groups?: decline to answer Panel score (0-1 are the most socially isolated patients): 1 Duration: 15-30 minutes/day Frequency: 3-4 times per week Dinora/Confucianism: Denominational Special dinora needs: No Seatbelt use: always Drive intox or ride w/intox driver merchandiser: No Do you feel safe at home: Yes Do you feel safe in your relationship?: Yes Female Reproductive History Menstrual Menopause type: natural History History 2 Para 2 Hx # Term Pregnancies Multiple births Hx # Pregnancies Ectopic pregnancies AB induced Hx Number of Living Children 2 AB spontaneous Exam Narrative Exam Narrative: Const: WDWN female in NAD. HEENT: NC/AT. Normal facial exam. Eyes: Normal conjunctiva and sclera. Neck: Supple. Trachea midline. Lungs: Normal respiratory effort. Lungs are clear. Cor: RRR without murmur/gallop. Good radial pulses. GI: Soft. NT/ND. No guarding or rebound. Neuro: A+O x 3. Normal speech, mentation, gait. Cranial nerves II - XII grossly intact. No gross motor or sensory deficit. Ext: No C/C/E. Skin: Warm and dry without rash. Course Vital Signs Vital signs: Vital Signs Pulse 90 01/14/23 16:16 Respiratory Rate 16 01/14/23 16:16 Blood Pressure 154/75 H 01/14/23 16:16 Pulse Oximetry 100 01/14/23 16:16 Pulse 90 01/14/23 16:16 Respiratory Rate 16 01/14/23 16:16 Respiratory Effort Normal, Non-Labored 01/14/23 16:24 Blood Pressure 154/75 H 01/14/23 16:16 Blood Pressure Position Sitting 01/14/23 16:16 Pulse Oximetry 100 01/14/23 16:16 Oxygen Delivery Method Room Air 01/14/23 16:16 Oxygen Flow Rate 0 01/14/23 16:16 Pain Level 0 01/14/23 16:16
--- NOTE | 2023-01-14 16:45 | DI.CT_ITS ---
Exam(s) CT ABDOMEN PELVIS W EXAM: CT ABDOMEN PELVIS W CLINICAL HISTORY: low abdominal pain/bloody mucousy stool. TECHNIQUE: Imaging Protocol: Axial computed tomography images with coronal and sagittal reformatted images were created and reviewed CONTRAST MATERIAL: Intravenous: Omnipaque-350 100cc Oral: None COMPARISON: CT CT ABDOMEN PELVIS W from 10/01/2020 FINDINGS: VISUALIZED LUNG BASES: No nodules nor pleural effusions evident. ABDOMEN: There is no ascites. LIVER: There are no new focal hepatic lesions evident. Again noted is a benign-appearing well-define d hypodensity in the left hepatic lobe which measures 1.8 x 1.3 cm, either cyst or hemangioma. Above this level is a tiny 2 millimeter cyst in the left hepatic lobe. No findings in the right hepatic l obe. No dilated intrahepatic ducts. No obvious gallbladder pathology. Calcified granuloma in the l iver adjacent to the IVC is unchanged. GALLBLADDER/BILIARY: No obvious gallbladder pathology. CBD is not dilated. PANCREAS: No evidence of pancreatic mass nor dilatation of the pancreatic duct. SPLEEN: Spleen is not enlarged. No obvious intrasplenic lesions. Splenic and portal veins are paten t. ADRENALS: There are no significant adrenal masses. KIDNEYS:No cysts evident. No solid renal masses. No calculi nor hydronephrosis.. ABDOMINAL AORTA: Calcified but not enlarged. LYMPH NODES:There is no retroperitoneal nor paraaortic adenopathy. ABDOMINAL WALL: No evidence of significant anterior abdominal wall nor inguinal hernia. GI: There is no evidence of bowel obstruction, free air, nor abscess. PELVIS: GI: No evidence of appendicitis.There is an area of circumferential edema in the sigmoid and what yanely ears to be a culprit superior wall diverticulum with surrounding streaking, these findings consistent with acute diverticulitis of the sigmoid. There is circumferential wall edema for a distance of 7 c m. No abscess seen at this time. LYMPH NODES: There is no intrapelvic nor inguinal adenopathy. REPRODUCTIVE: Age-appropriate URINARY BLADDER: No calculi nor obvious masses evident OSSEOUS: No fractures and no significant osseous lesions. IMPRESSION: 1. Findings are consistent with acute diverticulitis of the sigmoid. In addition to what appears to be a a culprit superior wall diverticulum there is also circumferential edema of the colon wall for a distance of approximately 6-7 cm. 2. Differential diagnosis includes colitis and/or neoplasm with focal perforation. 3. Follow-up colonoscopy after appropriate treatment and clinical intervals recommended. Called by myself to ER physician 01/14/2023 6:57 p.m. RADIATION DOSE DELIVERED: Total DLP DATA REPOSITORY: All CT scans at this facility are submitted to the National Radiology Data Registry (NRDR) Dose Index Registry (DIR) with the [employer] (ACR). RADIATION OPTIMIZATION: All CT scans at this facility use at least one of these dose optimization te chniques: automated exposure control; mA and/or kV adjustment per patient size (includes targeted exa ms where dose is matched to clinical indication); or iterative reconstruction.
[2023-01-14] MEDS: Lactated Ringers 1,000 ML 1000 ML IV (17:27)
[2023-01-14 17:39] LABS: Abs Immature Grans 0.06 10^3/uL (0.0-0.06); Absolute Basophil Count 0.04 10^3/uL (0.0-0.2); Basophils % 0.3; Eosinophils % 0.9; HCT 36.9 % (36.0-46.0); HGB 12.2 g/dL (11.2-15.7); Immature Grans % 0.4; Lymphocytes % 11.1; MCH 28.8 pg (27.0-33.0); MCHC 33.1 % (32.0-36.0); MCV 87 fL (80-95); MPV 11.4 fL (8.0-11.0); Monocytes % 7.5; Neutrophils % 79.8; Platelet Count 162 10^3/uL (130-400); RBC 4.24 10^6/uL (3.93-5.22); RDW 13.2 % (11.7-14.6); WBC 14.74 10^3/uL (4.4-10.8)
[2023-01-14 17:40] LABS: Absolute Eosinophil Count 0.13 10^3/uL (0.0-0.7); Absolute Lymphocyte Count 1.64 10^3/uL (1.2-3.4); Absolute Monocyte Count 1.11 10^3/uL (0.1-0.8); Absolute Neutrophil Count 11.76 10^3/uL (1.2-6.7)
[2023-01-14 17:53] LABS: ALT 22 U/L (14-59); AST 23 U/L (15-37); Albumin 3.7 g/dL (3.4-5.0); Alkaline Phosphatase 71 U/L (46-116); Anion Gap 7.7 mmol/L (3-11); BUN 13 mg/dL (7-18); Bilirubin, Total 0.3 mg/dL (0.2-1.0); CO2 30.3 mmol/L (21.0-32.0); CREATININE 0.7 mg/dL (0.55-1.02); Calcium 10.1 mg/dL (8.5-10.1); Chloride 103 mmol/L (98-107); Estimated GFR 91.26 (mL/min/1.73m2); Glucose 95 mg/dL (74-106); Potassium 3.5 mmol/L (3.5-5.1); Sodium 141 mmol/L (136-145); Total Protein 7.4 g/dL (6.4-8.2)
[2023-01-14] MEDS: Omnipaque 350 MG/ML 100 ML BTL IJ (18:21)
[2023-01-14] MEDS: Normal Saline - Diluent 50 ML VIAL IJ (18:23)
[2023-01-14] MEDS: cefTRIAXone 1 GM/50 ML BAG IVPB (19:59)
--- NOTE | 2023-01-14 20:00 | W.PM.PROGNOT ---
Date of Service Date of service: 01/14/23 Time of Service: 20:33 Assessment and Plan Assessment and plan (1) Sigmoid diverticulitis: Status: Acute Assessment and plan: abx: Ceftriaxone and Flagyl GI: Pepcid DVT prophylaxis: SCDs and Lovenox Pulmonary toilet Multimodality pain management plan Routine medical care Repeat labs in AM. npo ct w/ po contrast in am full consult in am patient will require colonoscopy once the acute infection is resolved (2) Right optic neuritis: Status: Acute (3) GERD with esophagitis: Status: Chronic (4) Glaucoma of right eye: Status: Chronic (5) Primary osteoarthritis of right knee: Status: Chronic (6) Osteoporosis: (7) Essential hypertension: (8) Hyperlipidemia: Qualifiers: Hyperlipidemia type: unspecified Qualified Code(s): E78.5 - Hyperlipidemia, unspecified (9) Diverticulitis of jejunum: Subjective Subjective Interval history since last seen: CE 01/26 The patient was placed in the left lateral position. Rectal exam is performed. No masses are noted. The scope was passed through the anus into the rectum, through the sigmoid colon all the way to the cecum. The cecum is well visualized as is the appendiceal orifice. The light was seen in the right lower quadrant anterior abdominal wall. The scope was then gradually withdrawn, inspected the bowel wall carefully. The scope is then retroflexed in the rectum and then removed. Next, the EGD scope was selected, placed through the oropharynx into the esophageus and down into the stomach. Once in the stomach, it was advanced through the pylorus into the duodenum. The first and second portions of the duodenum were inspected. The scope is brought out into the antrum. Biopsy and CLOtest were performed. Additional biopsies were taken from the body of the stomach. The scope was retroflexed and brought through the GE junction. The scope was then gradually withdrawn taking biopsies in the distal, mid and proximal esophagus and sending these off separately. The patient was sent to Day Surgery in satisfactory condition. CT IMPRESSION: 1. Findings are consistent with acute diverticulitis of the sigmoid. In addition to what appears to be a a culprit superior wall diverticulum there is also circumferential edema of the colon wall for a distance of approximately 6-7 cm. 2. Differential diagnosis includes colitis and/or neoplasm with focal perforation. 3. Follow-up colonoscopy after appropriate treatment and clinical intervals recommended. Objective Last Vital Signs Pulse 90 01/14/23 16:16 Resp 16 01/14/23 16:16 BP 154/75 H 01/14/23 16:16 Pulse Ox 100 01/14/23 16:16 Laboratory Results - last 24 hr 01/14/23 17:30 WBC 14.74 H RBC 4.24 Hgb 12.2 Hct 36.9 MCV 87 MCH 28.8 MCHC 33.1 RDW 13.2 Plt Count 162 MPV 11.4 H Immature Gran % 0.4 Neutrophils % 79.8 Lymphocytes % 11.1 Monocytes % 7.5 Eosinophils % 0.9 Basophils % 0.3 Nucleated RBC % 0.0 Absolute Neutrophils 11.76 H Absolute Lymphocytes 1.64 Absolute Monocytes 1.11 H Absolute Eosinophils 0.13 Absolute Basophils 0.04 Sodium 141 Potassium 3.5 Chloride 103 Carbon Dioxide 30.3 Anion Gap 7.7 BUN 13 Creatinine 0.7 Est GFR (CKD-EPI 2020) 91.26 Glucose 95 Calcium 10.1 Total Bilirubin 0.3 AST 23 ALT 22 Alkaline Phosphatase 71 Total Protein 7.4 Albumin 3.7 Time Spent with Patient Time Spent with Patient: 25-34 minutes Time was spent: preparing to see the patient(eg.review tests), obtaining and/or reviewing separately otained hiistory, ordering medications,tests, procedures, referring, communicating with other health assurance services manager health care, indepentently interpreting results, counseling the patient and care coordination
[2023-01-14] MEDS: metroNIDAZOLE 500 MG/100 ML BAG 100 MG IVPB (20:30)
[2023-01-14 20:32] LABS: Lab Add On Test DONE
[2023-01-14 20:42] LABS: C-Reactive Protein 2.76 mg/dL (0.0-0.3)
[2023-01-14] MEDS: Famotidine 20 MG/2 ML VIAL IVP (21:41)
[2023-01-14] MEDS: DEXTROSE 5%-0.45% SALINE 1,000 ML 75 ML IV (21:42)
[2023-01-15 06:12] LABS: Abs Immature Grans 0.03 10^3/uL (0.0-0.06); Absolute Basophil Count 0.04 10^3/uL (0.0-0.2); Absolute Eosinophil Count 0.17 10^3/uL (0.0-0.7); Absolute Lymphocyte Count 1.55 10^3/uL (1.2-3.4); Absolute Monocyte Count 0.81 10^3/uL (0.1-0.8); Absolute Neutrophil Count 6.19 10^3/uL (1.2-6.7); Basophils % 0.5; Eosinophils % 1.9; HCT 31.5 % (36.0-46.0); HGB 10.7 g/dL (11.2-15.7); Immature Grans % 0.3; Lymphocytes % 17.6; MCH 29.7 pg (27.0-33.0); MCV 88 fL (80-95); MPV 11.5 fL (8.0-11.0); Monocytes % 9.2; Neutrophils % 70.5; Platelet Count 152 10^3/uL (130-400); RDW 13.2 % (11.7-14.6); RDW-SD 42.5 fL; WBC 8.79 10^3/uL (4.4-10.8)
[2023-01-15 06:21] LABS: Anion Gap 8.3 mmol/L (3-11); BUN 8 mg/dL (7-18); CO2 27.7 mmol/L (21.0-32.0); CREATININE 0.7 mg/dL (0.55-1.02); Calcium 8.4 mg/dL (8.5-10.1); Chloride 107 mmol/L (98-107); Estimated GFR 91.26 (mL/min/1.73m2); Glucose 103 mg/dL (74-106); Potassium 3.5 mmol/L (3.5-5.1); Sodium 143 mmol/L (136-145)
[2023-01-15] MEDS: metroNIDAZOLE 500 MG/100 ML BAG 100 MG IVPB ×3 (06:44→22:17)
[2023-01-15 07:36] VITALS: BP 93/53; PULSE 65; RESP 17; TEMP 36.5; O2SAT 97
[2023-01-15 08:16] VITALS: BP 90/60
--- NOTE | 2023-01-15 09:30 | INITIAL_ITS ---
Date of service: 01/15/23 Time of Service: 09:30 Care Management Initial Assmt Initial Assessment REASON FOR HOSPITALIZATION:: diverticulitis PREVIOUS FUNCTIONAL STATUS/SOCIAL/FAMILY SUPPORTS:: Stephanie lives in a single family home in [place]. with her Scott. They have 2 sons and and 3 grandchildren. 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 She is independent at baseline and does not receive any community ser vices. CURRENT FUNCTIONAL STATUS:: Thao was sitting up in bed when CM met with her. She was in good spirits and engaged easily with CM. Thao talked proudly of her sons, sharing that they are a very close family and phone each other several times a week. One son lives in [facility] and had his first child a week ago. Her other son lives in [facility] and has 2 children ages 7 and 10. Thao stated that they came for a visit last winter for a few weeks and that the family had a great time being together. She and her have flown to [facility] once and Thao shared that it was a long, difficult journey. Clinically Thao appears to be doing well. She is afebrile, her WBC has normalized and she has not required any pain medication. She remains NPO. ADVANCE DIRECTIVES:: None on file, has not completed. CM offered forms. Has patient been provided with info about the portal/API?: Yes Did the patient sign up for the portal?: Yes CODE STATUS:: Full Code INSURANCE COVERAGE / FINANCIAL ISSUES:: Medicare [place] supplement CURRENT HOME/COMMUNITY SERVICES/EQUIPMENT:: none PRIMARY CARE PHYSICIAN:: Leanne Berry POTENTIAL DISCHARGE NEEDS:: follow up with surgery, PCP and plan of care PATIENT/FAMILY EDUCATION NEEDS:: Review of discharge instructions, diet, activity, limitations, follow up plan, discuss Ask Me Three TRANSPORTATION:: via private vehicle with family PLAN:: Anticipate Stephanie will be discharged home with no new services. She will follow up with surgery, her PCP and plan of care and transport with family. CM will follow and continue to assess for discharge needs. PFSH All Active Problems Sigmoid diverticulitis (Acute) Right optic neuritis (Acute) Lipoma of arm (Acute) GERD with esophagitis (Chronic) Glaucoma of right eye (Chronic) Primary osteoarthritis of right knee (Chronic) Medical History Osteoporosis Dexa 01/2019. Fosamax started 01/2020 Essential hypertension Hyperlipidemia Diverticulitis of jejunum Surgical History S/P colonoscopy (01/19/13) History of esophagogastroduodenoscopy (EGD) (01/19/13) History of bilateral tubal ligation (~12/1978) S/P excision of lipoma (~2002) of left medial thigh Family History Mother , at 91 Depression Hyperlipidemia Breast cancer x 2; in her 40s Stroke Hypertension Father No problems noted. Son No problems noted. Son No problems noted. Maternal Grandfather , in his 70s of [place] Myocardial infarction Hyperlipidemia Maternal Grandmother Hyperlipidemia Heart disease Hypertension Cancer Doesn't know which type Paternal Grandfather No problems noted. Paternal Grandmother No problems noted. Social History Smoking/Tobacco Use Status: Former Tobacco Use tobacco type: cigarettes Quit Date: 02/14/74 Tobacco: How many years used: 7 Second Hand Exposure: No Smoking risk assessment performed?: Yes Alcohol Intake: current Alcohol Intake frequency: holidays/special occasions only Alcohol type: beer Drug use: Never Substance use type: does not use Household members: spouse Housing: house Pets and animals: No Sexually active: Yes Current gender identity: female What is your relationship status?: How often do you talk on the phone with friends or family?: decline to answer How often do you get together with friends or relatives?: decline to answer How often do you attend presybeterian or buddhism services?: decline to answer Do you belong to any clubs or organized social groups?: decline to answer Panel score (0-1 are the most socially isolated patients): 1 Duration: 15-30 minutes/day Frequency: 3-4 times per week Dinora/Sikh: Nondenominational Special dinora needs: No Seatbelt use: always Drive intox 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
[2023-01-15] MEDS: Normal Saline - Diluent 50 ML VIAL IJ ×2 (10:48→10:49)
[2023-01-15] MEDS: Omnipaque 350 MG/ML 100 ML BTL IJ (10:51)
--- NOTE | 2023-01-15 11:15 | DI.CT_ITS ---
Exam(s) CT ABDOMEN PELVIS W EXAM: CT ABDOMEN PELVIS W CLINICAL HISTORY: mass in sigmoid. TECHNIQUE: Imaging Protocol: Axial computed tomography images with coronal and sagittal reformatted images were created and reviewed CONTRAST MATERIAL: Intravenous: Omnipaque-350 100cc Oral: Yes. Oral contrast was also administered for bowel opacification. COMPARISON: CT CT ABDOMEN PELVIS W from 01/14/[address] PELVIC WO from 01/15/2023 FINDINGS: VISUALIZED LUNG BASES: No nodules nor pleural effusions evident. ABDOMEN: There is no ascites. LIVER: Recently described benign-appearing cyst in the left hepatic lobe is again noted. This does n ot have the appearance of an abscess and there is also no evidence of portal venous gas in this patie nt was diverticulitis of the sigmoid. No dilated intrahepatic ducts. GALLBLADDER/BILIARY: Biliary excretion of yesterday's IV contrast. No calculi. CBD is not dilated. PANCREAS: No evidence of pancreatic mass nor dilatation of the pancreatic duct. SPLEEN: Spleen is not enlarged. No obvious intrasplenic lesions. Splenic and portal veins are paten t. ADRENALS: There are no significant adrenal masses. KIDNEYS:No cysts evident. No solid renal masses. No calculi nor hydronephrosis.. ABDOMINAL AORTA: Peripherally calcified but not enlarged. Also no aneurysms of the iliac vessels. LYMPH NODES:There is no retroperitoneal nor paraaortic adenopathy. ABDOMINAL WALL: No evidence of significant anterior abdominal wall nor inguinal hernia. GI: There is no evidence of small-bowel obstruction. The administered oral contrast has not reached the area of interest in the sigmoid. Nevertheless, findings described yesterday are again noted and are most probably consistent with acute diverticulitis. There is no abscess at this time. There is, however, small amount of fluid in the dependent aspect pelvis. No evidence of appendicitis. PELVIS: LYMPH NODES: There is no intrapelvic nor inguinal adenopathy. REPRODUCTIVE: Age-appropriate URINARY BLADDER: No calculi nor obvious masses evident OSSEOUS: No fractures and no significant osseous lesions. IMPRESSION: 1. Findings in the sigmoid again noted which are most probably related to acute diverticulitis. No a bscess evident. No bowel obstruction. 2. This patient will require follow-up colonoscopy after appropriate clinical interval to rule out un derlying neoplasm of the sigmoid. RADIATION DOSE DELIVERED: Total DLP DATA REPOSITORY: All CT scans at this facility are submitted to the National Radiology Data Registry (NRDR) Dose Index Registry (DIR) with the [employer] (ACR). RADIATION OPTIMIZATION: All CT scans at this facility use at least one of these dose optimization te chniques: automated exposure control; mA and/or kV adjustment per patient size (includes targeted exa ms where dose is matched to clinical indication); or iterative reconstruction.
--- NOTE | 2023-01-15 11:27 | HPE_ITS ---
Date of service: 01/15/23 Time of Service: 11:27 Assessment and Plan Assessment and plan (1) GERD with esophagitis: Status: Chronic (2) Glaucoma of right eye: Status: Chronic (3) Primary osteoarthritis of right knee: Status: Chronic (4) Sigmoid diverticulitis: Status: Acute Assessment and plan: Patient does have a history of diverticula of the sigmoid colon. We did discuss the etiologies of diverticulitis, As well as treatment. We will keep her on IV antibiotics 1 more day. We will advance her diet to clears. She will need a colonoscopy in 3 to 4 weeks time. She will follow-up in clinic and we will schedule CE. Eyedrops ordered for glaucoma. If patient continues to progress in this fashion we will plan DC in a.m. Continue supportive care. This document was created with voice activated software and may contain errors. 60 mins spent with the patient today. (5) Osteoporosis: (6) Essential hypertension: (7) Hyperlipidemia: Qualifiers: Hyperlipidemia type: unspecified Qualified Code(s): E78.5 - Hyperlipidemia, unspecified (8) Diverticulitis of jejunum: History of Present Illness Narrative: Patient was admitted last night through the ER with abdominal pain and elevated white count. I did review the ER notes and the CT from last p.m. Patient notes she has been having crampy left lower quadrant pain off-and-on since around . She has been passing a lot of mucus in her stools. Yesterday the cramping persisted and became severe. She was passing mucus and a small amount of blood. Normally her bowels are regular and every day without pain or blood. She denies any weight loss. Although her weight is down per our vitals. She was not having any fever or chills. She is not having any nausea or vomiting. Her last colonoscopy was in 2012 and was significant for diverticula. CT today with oral contrast, with contrast has not reached the sigmoid colon. Clinically the patient is feeling better today. She is hungry. She has no fever or chills. She is passing gas but not moved her bowels. She has had no nausea and vomiting. She has no pain. She has good bowel sounds. no headaches. No CP or SOB. no productive cough. no dysuria. no leg pain or swelling. Review of Systems All systems reviewed & are unremarkable except as noted in HPI and below PFSH All Active Problems Sigmoid diverticulitis (Acute) Right optic neuritis (Acute) Lipoma of arm (Acute) GERD with esophagitis (Chronic) Glaucoma of right eye (Chronic) Primary osteoarthritis of right knee (Chronic) Medical History Osteoporosis Dexa 01/2019. Fosamax started 01/2020 Essential hypertension Hyperlipidemia Diverticulitis of jejunum Surgical History S/P colonoscopy (01/19/13) History of esophagogastroduodenoscopy (EGD) (01/19/13) History of bilateral tubal ligation (~12/1978) S/P excision of lipoma (~2002) of left medial thigh Family History Mother , at 91 Depression Hyperlipidemia Breast cancer x 2; in her 40s Stroke Hypertension Father No problems noted. Son No problems noted. Son No problems noted. Maternal Grandfather , in his 70s of [place] Myocardial infarction Hyperlipidemia Maternal Grandmother Hyperlipidemia Heart disease Hypertension Cancer Doesn't know which type Paternal Grandfather No problems noted. Paternal Grandmother No problems noted. Social History Smoking/Tobacco Use Status: Former Tobacco Use tobacco type: cigarettes Quit Date: 02/14/74 Tobacco: How many years used: 7 Second Hand Exposure: No Smoking risk assessment performed?: Yes Alcohol Intake: current Alcohol Intake frequency: holidays/special occasions only Alcohol type: beer Drug use: Never Substance use type: does not use Household members: spouse Housing: house Pets and animals: No Sexually active: Yes Current gender identity: female What is your relationship status?: How often do you talk on the phone with friends or family?: decline to answer How often do you get together with friends or relatives?: decline to answer How often do you attend scientology or congregation services?: decline to answer Do you belong to any clubs or organized social groups?: decline to answer Panel score (0-1 are the most socially isolated patients): 1 Duration: 15-30 minutes/day Frequency: 3-4 times per week Dinora/Baptist: Orthodox Special dinora needs: No Seatbelt use: always Drive intox or ride w/intox pick up driver: No Do you feel safe at home: Yes Do you feel safe in your relationship?: Yes Female Reproductive History Menstrual Menopause type: natural History History 2 2 Para 2 Hx # Term Pregnancies Multiple births Hx # Pregnancies Ectopic pregnancies AB induced Hx Number of Living Children 2 AB spontaneous Meds Allergies and Home Medications Allergies Allergy/AdvReac Type Severity Reaction Status Date / Time ciprofloxacin Allergy Severe effects Verified 01/14/23 17:35 my tendons, causes pain in legs. 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 acidophilus,casei,rhamnosus 50 1 cap PO DAILY #30 caps 10/03/20 08/20/22 Rx billion cell capsule,delayed release (Bio-K plus) calcium carbonate 600 mg-vitamin 1 tab PO DAILY 03/16/21 08/20/22 History D3 10 mcg (400 unit) tablet (Calcium with Vitamin D) diphenhydramine 25 1 tab PO QHS PRN 03/16/21 08/20/22 History mg-acetaminophen 500 mg tablet (Tylenol PM Extra Strength) simethicone 125 mg capsule (Gas 125 mg PO QD-BID PRN 03/16/21 08/20/22 History Relief (simethicone)) latanoprost 0.005 % eye drops 1 drp ophthalmic (eye) QHS 05/10/22 08/20/22 History losartan 25 mg tablet 25 mg PO DAILY #90 tabs 05/10/22 08/20/22 Rx timolol maleate 0.5 % eye gel 1 drp ophthalmic (eye) DAILY 05/10/22 08/20/22 History forming solution alendronate 70 mg tablet 70 mg PO QWEEK #13 tabs 06/24/22 08/20/22 Rx Exam Narrative Exam Narrative: PHYSICAL EXAM GENERAL APPEARANCE: Alert, healthy appearance, oriented, x 3,? in no acute distress HYDRATION: Well hydrated HEAD, EYES, EARS, NECK, THROAT: Head is normocephalic, pupils equal, round, reactive to light and accommodation, ocular movement intact, sclera clear and no jaundice. ?Dentition intact. LUNGS: normal respiration/normal chest excursion. ?Clear to auscultation bilaterally. ?No wheeze. ?HEART: Regular rate and rhythm. no murmurs EXTREMITY: No edema or cyanosis.? no leg pain, redness, swelling.? ABDOMEN: soft and non-tender to palpation.? Normal bowel sounds.? Results Labs 01/15/23 05:56 01/15/23 05:56 Labs: Laboratory Results - last 24 hr 01/14/23 01/14/23 01/15/23 16:53 17:30 05:56 WBC 14.74 H 8.79 RBC 4.24 3.60 L Hgb 12.2 10.7 L Hct 36.9 31.5 L MCV 87 88 MCH 28.8 29.7 MCHC 33.1 34.0 RDW 13.2 13.2 Plt Count 162 152 MPV 11.4 H 11.5 H Immature Gran % 0.4 0.3 Neutrophils % 79.8 70.5 Lymphocytes % 11.1 17.6 Monocytes % 7.5 9.2 Eosinophils % 0.9 1.9 Basophils % 0.3 0.5 Nucleated RBC % 0.0 0.0 Absolute Neutrophils 11.76 H 6.19 Absolute Lymphocytes 1.64 1.55 Absolute Monocytes 1.11 H 0.81 H Absolute Eosinophils 0.13 0.17 Absolute Basophils 0.04 0.04 Sodium 141 143 Potassium 3.5 3.5 Chloride 103 107 Carbon Dioxide 30.3 27.7 Anion Gap 7.7 8.3 BUN 13 8 Creatinine 0.7 0.7 Est GFR (CKD-EPI 2020) 91.26 91.26 Glucose 95 103 Calcium 10.1 8.4 L Magnesium Cancelled Total Bilirubin 0.3 AST 23 ALT 22 Alkaline Phosphatase 71 C-Reactive Protein 2.76 H Total Protein 7.4 Albumin 3.7 Add-On Test Request DONE 01/15/23 05:56 WBC RBC Hgb Hct MCV MCH MCHC RDW Plt Count MPV Immature Gran % Neutrophils % Lymphocytes % Monocytes % Eosinophils % Basophils % Nucleated RBC % Absolute Neutrophils Absolute Lymphocytes Absolute Monocytes Absolute Eosinophils Absolute Basophils Sodium Potassium Chloride Carbon Dioxide Anion Gap BUN Creatinine Est GFR (CKD-EPI 2020) Glucose Calcium Magnesium 2.0 Total Bilirubin AST ALT Alkaline Phosphatase C-Reactive Protein Total Protein Albumin Add-On Test Request Last Vital Signs Temp 36.5 C 01/15/23 07:36 Pulse 65 01/15/23 07:36 Resp 17 01/15/23 07:36 BP 90/60 L 01/15/23 08:16 Pulse Ox 97 01/15/23 07:36 Anemia profile 2 Hgb 10.7 g/dL (11.2-15.7) L 01/15/23 Hct 31.5 % (36.0-46.0) L 01/15/23 MCV 88 fL (80-95) 01/15/23 RDW 13.2 % (11.7-14.6) 01/15/23 Ferritin 110 ng/mL (8-252) 01/15/23 Basic Metabolic 2 Sodium 143 mmol/L (136-145) 01/15/23 Potassium 3.5 mmol/L (3.5-5.1) 01/15/23 Chloride 107 mmol/L (98-107) 01/15/23 Carbon Dioxide 27.7 mmol/L (21.0-32.0) 01/15/23 BUN 8 mg/dL (7-18) 01/15/23 Creatinine 0.7 mg/dL (0.55-1.02) 01/15/23 Estimated GFR/1.73 m2 >= 60.00 (mL/min/1.73m2) 05/12/21 Glucose 103 mg/dL (74-106) 01/15/23 CBC 2 White Blood Count 8.79 10^3/uL (4.4-10.8) 01/15/23 Red Blood Count 3.60 10^6/uL (3.93-5.22) L 01/15/23 Hemoglobin 10.7 g/dL (11.2-15.7) L 01/15/23 Hematocrit 31.5 % (36.0-46.0) L 01/15/23 Mean Corpuscular Volume 88 fL (80-95) 01/15/23 Mean Corpuscular Hemoglobin 29.7 pg (27.0-33.0) 01/15/23 Mean Corpuscular Hemoglobin Concent 34.0 % (32.0-36.0) 04/08 Red Cell Distribution Width 13.2 % (11.7-14.6) 01/15/23 Platelet Count 152 10^3/uL (130-400) 01/15/23 Mean Platelet Volume 11.5 fL (8.0-11.0) H 01/15/23 Neutrophils % 70.5 01/15/23 Lymphocytes % 17.6 01/15/23 Monocytes % 9.2 01/15/23 Eosinophils % 1.9 01/15/23 Basophils % 0.5 01/15/23 Immature Granulocytes % 0.3 01/15/23 Comprehensive Metabolic Panel 2 Sodium 143 mmol/L (136-145) 01/15/23 05:56 Potassium 3.5 mmol/L (3.5-5.1) 01/15/23 05:56 Chloride 107 mmol/L (98-107) 01/15/23 05:56 Carbon Dioxide 27.7 mmol/L (21.0-32.0) 01/15/23 05:56 BUN 8 mg/dL (7-18) 01/15/23 05:56 Creatinine 0.7 mg/dL (0.55-1.02) 01/15/23 05:56 Estimated GFR/1.73 m2 >= 60.00 (mL/min/1.73m2) 05/12/21 07:50 Glucose 103 mg/dL (74-106) 01/15/23 05:56 Calcium 8.4 mg/dL (8.5-10.1) L 01/15/23 05:56 Total Bilirubin 0.3 mg/dL (0.2-1.0) 01/14/23 17:30 ALT 22 U/L (14-59) 01/14/23 17:30 AST 23 U/L (15-37) 01/14/23 17:30 Alkaline Phosphatase 71 U/L (46-116) 01/14/23 17:30 Total Protein 7.4 g/dL (6.4-8.2) 01/14/23 17:30 Albumin 3.7 g/dL (3.4-5.0) 01/14/23 17:30 Diabetes results 2 Hemoglobin A1c 5.6 % (4.5-6.2) 12/06/18 Glucose 103 mg/dL (74-106) 01/15/23 Total Cholesterol 234 mg/dL (<200) H 06/03/22 LDL Cholesterol, Calc 152 mg/dL (<100) H 06/03/22 LDL Cholesterol Direct 144 mg/dL (<100) H 12/22/17 HDL Cholesterol 54 mg/dL (40-60) 06/03/22 Triglycerides 142 mg/dL (<150) 06/03/22 BUN 8 mg/dL (7-18) 01/15/23 Creatinine 0.7 mg/dL (0.55-1.02) 01/15/23 Estimated GFR/1.73 m2 >= 60.00 (mL/min/1.73m2) 05/12/21 Est GFR (CKD-EPI 2020) 91.26 (mL/min/1.73m2) 01/15/23 Sodium 143 mmol/L (136-145) 01/15/23 Potassium 3.5 mmol/L (3.5-5.1) 01/15/23 Chloride 107 mmol/L (98-107) 01/15/23 Carbon Dioxide 27.7 mmol/L (21.0-32.0) 01/15/23 Calcium 8.4 mg/dL (8.5-10.1) L 01/15/23 AST 23 U/L (15-37) 01/14/23 ALT 22 U/L (14-59) 01/14/23 Total Protein 7.4 g/dL (6.4-8.2) 01/14/23 Albumin 3.7 g/dL (3.4-5.0) 01/14/23 Time Spent Time spent with Patient: 40-54 minutes Time was spent: preparing to see the patient(eg.review tests), obtaining and/or reviewing separately otained hiistory, ordering medications,tests, procedures, referring, communicating with other health human services care specialist, indepentently interpreting results, counseling the patient and care coordination
[2023-01-15 11:38] LABS: Lab Add On Test DONE
[2023-01-15] MEDS: Normal Saline Flush 10 ML SYR IVP (11:40)
[2023-01-15] MEDS: DEXTROSE 5%-0.45% SALINE 1,000 ML 75 ML IV (11:41)
--- NOTE | 2023-01-15 11:42 | DI.VRAD_ITS ---
PROCEDURE INFORMATION: Exam: CT Abdomen And Pelvis With Contrast Exam date and time: 01/15/2023 10:52 AM Age: 72 years old Clinical indication: Other: Sigmoid mass TECHNIQUE: Imaging protocol: Computed tomography of the abdomen and pelvis with contrast. Radiation optimization: All CT scans at this facility use at least one of these dose optimization techniques: automated exposure control; mA and/or kV adjustment per patient size (includes targeted exams where dose is matched to clinical indication); or iterative reconstruction. Contrast material: OMNIPAQUE 350; Contrast volume: 100 ml; Contrast route: INTRAVENOUS (IV); Other contrast: Oral, Barium , 900 ml; COMPARISON: CT ABDOMEN PELVIS W 01/14/2023 6:20 PM (report is not available) FINDINGS: No evidence of bowel obstruction. There is excellent contrast opacification of small bowel and proximal colon. The orally administered contrast had not reached the descending colon or rectosigmoid colon at the time of image acquisition. Again evident is focal wall thickening of the sigmoid colon. There is a diverticulum in this region and there is stranding of the surrounding fat. Appearance favors acute diverticulitis without evidence of abscess. No free intraperitoneal air. Increased attenuation within the dependent portion of the gallbladder is compatible with hepatobiliary excretion of IV contrast administered for CT scan performed the previous day. There is no gallbladder wall thickening or biliary duct dilation. No new abnormality of the solid abdominal viscera identified in the mid to upper abdomen compared to the prior study. Diffuse aortoiliac atherosclerotic calcifications are present without aneurysmal dilation. Calcified plaque at origin of celiac artery and SMA without obvious high-grade stenosis. Stenosis may approach 50% at the celiac artery origin. Calcification also involves bilateral renal artery origins with pdxh-eg-adrhhuzl stenoses. Chronic multilevel lumbar degenerative disc disease and facet arthropathy, the latter associated with minimal anterolisthesis. Chronic bilateral hip arthropathy is again evident. IMPRESSION: Abnormality of the sigmoid colon likely on the basis of acute diverticulitis. No abscess or bowel obstruction is evident. Dictated and Authenticated by: Sung Wright MD. Ordering:SHELIA Arteaga MD
[2023-01-15 12:11] LABS: Ferritin 110 ng/mL (8-252)
--- NOTE | 2023-01-15 12:57 | DI.CT_ITS ---
Exam(s) CT PELVIC WO EXAM: CT PELVIC WO CLINICAL HISTORY: mass vs infection in sigmoid. TECHNIQUE: Imaging Protocol: Axial computed tomography images with coronal and sagittal reformatted images were created and reviewed CONTRAST MATERIAL: Intravenous: none Oral: Yes. This is a delayed study waiting for the oral contrast to have reached the desired area in the sigmoid. COMPARISON: CT CT ABDOMEN PELVIS W from 01/15/2023 FINDING: PELVIS: Despite waiting the oral contrast has not progressed into the sigmoid below the level of the iliac cr est. Nevertheless, since the area of sigmoid diverticulitis appears somewhat improved compared to ye . See full report earlier same date IMPRESSION: 1. Sigmoid diverticulitis. 2. This patient will require follow-up colonoscopy after appropriate clinical interval to rule out un derlying sigmoid malignancy, given the appearance of the 1st CT scan upon admission RADIATION DOSE DELIVERED: Total DLP DATA REPOSITORY: All CT scans at this facility are submitted to the National Radiology Data Registry (NRDR) Dose Index Registry (DIR) with the [employer] (ACR). RADIATION OPTIMIZATION: All CT scans at this facility use at least one of these dose optimization te chniques: automated exposure control; mA and/or kV adjustment per patient size (includes targeted exa ms where dose is matched to clinical indication); or iterative reconstruction.
--- NOTE | 2023-01-15 13:11 | DI.VRAD_ITS ---
PROCEDURE INFORMATION: Exam: CT Pelvis Without Contrast Exam date and time: 01/15/2023 12:50 PM Age: 72 years old Clinical indication: Other: Mass vs infection in sigmoid colon TECHNIQUE: Imaging protocol: Computed tomography of the pelvis without contrast. COMPARISON: CT ABDOMEN PELVIS W 01/15/2023 10:52 AM FINDINGS: Images obtained through the pelvis without additional oral or IV contrast. The patient had contrast-enhanced CT earlier this date. These images again demonstrate segmental wall thickening of the sigmoid colon. No enteric contrast is present within the rectosigmoid colon at this time. No obvious abscess identified. As previously stated, acute diverticulitis is favored but that can not be confirmed as the etiology with certainty. Please correlate with clinical and laboratory data. IMPRESSION: No significant change compared to earlier exam. Dictated and Authenticated by: Sung Wright MD. Ordering:SHELIA Arteaga MD
[2023-01-15] MEDS: Timolol 0.5% 5 ML BTL OP (14:15)
[2023-01-15 15:01] VITALS: BP 120/74; PULSE 72; RESP 17; TEMP 37; O2SAT 97
[2023-01-15] MEDS: cefTRIAXone 2 GM/50 ML BAG IVPB (19:34)
[2023-01-15] MEDS: Latanoprost 0.005% 2.5 ML BTL OP (19:35)
[2023-01-15] MEDS: Famotidine 20 MG/2 ML VIAL IVP (19:35)
[2023-01-15 23:30] VITALS: BP 120/63; PULSE 79; RESP 18; TEMP 35.9; O2SAT 97
[2023-01-16] MEDS: metroNIDAZOLE 500 MG/100 ML BAG 100 MG IVPB (05:57)
[2023-01-16 07:22] VITALS: BP 160/91; PULSE 78; RESP 18; TEMP 36.1; O2SAT 97
--- NOTE | 2023-01-16 08:00 | DI.RAD_ITS ---
Exam(s) XR ABDOMEN FLAT UPRIGHT EXAM: XR ABDOMEN FLAT UPRIGHT CLINICAL HISTORY: colon obstruction. TECHNIQUE: 2D digital imaging was performed. COMPARISON: CT CT PELVIC WO from 01/15/2023 FINDINGS: 3 views The administered oral contrast is now entirely within the colon and extends from the cecum to the lev el of the rectum. Mild irregularity of the contrast column is seen at the sigmoid level (see recent reports). Follow-up colonoscopy after appropriate clinical interval will be required here. Appendix appears unremarkable. Moderate degenerative changes in both hips. Visualized lung bases ar e clear. IMPRESSION: As above. DATA REPOSITORY: RADIATION DOSE DELIVERED:
--- NOTE | 2023-01-16 08:39 | DI.VRAD_ITS ---
PROCEDURE INFORMATION: Exam: XR Abdomen Exam date and time: 01/16/2023 8:03 AM Age: 72 years old Clinical indication: Other: Colon obstruction TECHNIQUE: Imaging protocol: Radiologic exam of the abdomen. Views: 2 Views. Upright and supine views. COMPARISON: CT ABDOMEN PELVIS W 01/15/2023 10:52 AM FINDINGS: Lungs: The lung bases are clear. Gastrointestinal tract: Oral contrast is seen throughout the colon extending into the left colon, sigmoid colon and rectum. No dilated loops of small bowel appreciated. Intraperitoneal space: No evidence of free air. Bones/joints: Severe osteoarthritic changes of the hips. IMPRESSION: Oral contrast seen throughout the colon extending to the rectum. Dictated and Authenticated by: Richmond Suh MD. Ordering:SHELIA Arteaga MD
--- NOTE | 2023-01-16 09:08 | W.PM.PROGNOT ---
Date of Service Date of service: 01/16/23 Time of Service: 09:08 Assessment and Plan Assessment and plan (1) Sigmoid diverticulitis: Status: Acute Assessment and plan: Patient will be discharged home today-see discharge instructions (2) Right optic neuritis: Status: Acute (3) GERD with esophagitis: Status: Chronic (4) Glaucoma of right eye: Status: Chronic (5) Primary osteoarthritis of right knee: Status: Chronic (6) Sigmoid diverticulosis: Status: Inactive (7) Osteoporosis: (8) Essential hypertension: (9) Hyperlipidemia: Qualifiers: Hyperlipidemia type: unspecified Qualified Code(s): E78.5 - Hyperlipidemia, unspecified Subjective Subjective Interval history since last seen: Pt is doing well. no headaches. No CP or SOB. no productive cough. no dysuria. no leg pain or swelling. She has no abdominal pain today. No nausea or vomiting. She did have a large bowel movement. No fever or chills. Patient's blood pressure is elevated today. But her blood pressure was low yesterday and she did not get her blood pressure medications last night. Exam Resp Effort & Inspection: normal respiratory effort and able to speak in complete sentences Auscultation: clear to auscultation bilaterally GI Palpation: soft and nontender Auscultation: normal bowel sounds Objective Last Vital Signs Temp 36.1 C L 01/16/23 07:22 Pulse 78 01/16/23 07:22 Resp 18 01/16/23 07:22 BP 160/91 H 01/16/23 07:22 Pulse Ox 97 01/16/23 07:22 Laboratory Results - last 24 hr 01/15/23 05:56 Ferritin 110 Add-On Test Request DONE Time Spent with Patient Time Spent with Patient: 35-49 minutes Time was spent: preparing to see the patient(eg.review tests), obtaining and/or reviewing separately otained hiistory, ordering medications,tests, procedures, referring, communicating with other health animal care attendant, indepentently interpreting results, counseling the patient and care coordination
[2023-01-16] MEDS: Famotidine 20 MG/2 ML VIAL IVP (09:22)
[2023-01-16] MEDS: Normal Saline Flush 10 ML SYR IVP (09:22)
--- NOTE | 2023-01-16 10:25 | DSE_ITS ---
Date of service: 01/16/23 Time of Service: 10:25 DS: Diagnosis Discharge Diagnosis (1) Sigmoid diverticulitis: Status: Acute (2) GERD with esophagitis: Status: Chronic (3) Glaucoma of right eye: Status: Chronic (4) Primary osteoarthritis of right knee: Status: Chronic (5) Osteoporosis: (6) Essential hypertension: (7) Hyperlipidemia: (8) Diverticulitis of jejunum: Discharge Plan Disposition Patient Disposition: Home Condition: Improving Discharge Details Reason For Visit: Sigmoid diverticulitis Admit Date/Time: 01/14/23 19:46 Admit Provider: Jenni Ramos Attending Provider: Jenni Ramos [facility] Course: Stephanie Gonzalez is a 72-year-old female with a history of diverticular disease who was admitted on 01/15 with acute diverticulitis. At this point her signs and symptoms have resolved. Her white count is down to normal. She is moving her bowels without pain. She is tolerating a soft diet. All her questions are answered to her satisfaction. She will be discharged home on Augmentin for 5 days and to follow a soft diet for a week, Then return to a high-fiber diet She may experiencing some cramping especially with bowel movements and immediately following. She can use Tylenol or heat for this. If this persists and is associated with nausea vomiting or fever chills she should return to the ER. She will follow-up with myself in clinic later this week. We will schedule her for colonoscopy in the future. At the time of discharge she is doing well. She is discharged with her . Patient is given instructions and verbalized understanding. No nosocomial infections, complications or somatic dysfunction. Patient is discharged in stable and satisfactory condition. Home Meds and New Rx's Prescriptions: New amoxicillin-pot clavulanate 875-125 mg tablet 1 tab PO BID 5 Days Qty: 10 0RF Continued latanoprost 0.005 % drops 1 drp OP QHS multivitamin [Daily Multi-Vitamin] Tablet 1 tab PO DAILY PreserVision AREDS-2 092-608-48-1 to-wjic-av-mg capsule 1 tab PO ONCE Rx Instructions: administer with meals naproxen sodium [Aleve] 220 mg capsule 220 mg PO PRN PRN famotidine [Acid Tank Hoop Bender (famotidine)] 10 mg tablet 10 mg PO PRN PRN diphenhydramine-acetaminophen [Tylenol PM Extra Strength] 25-500 mg tablet 1 tab PO QHS PRN calcium carbonate-vitamin D3 [Calcium with Vitamin D] 600 mg-10 mcg (400 unit) tablet 1 tab PO DAILY simethicone [Gas Relief (simethicone)] 125 mg capsule 125 mg PO QD-BID PRN losartan 25 mg tablet 25 mg PO DAILY Qty: 90 3RF alendronate 70 mg tablet 70 mg PO QWEEK Qty: 13 3RF Patient Comments: Rx Instructions: Take 1 tablet once a week timolol maleate 0.5 % gel forming solution 1 drp Ophthalmic DAILY Bio-K plus 50 billion cell capsule,delayed release(DR/EC) 1 cap PO DAILY Qty: 30 0RF Rx Instructions: finish all Discharge Instructions Additional Instructions: -No driving for 24 hrs -Follow-up with Dr. Ramos in 1 week. My office will call you on Tuesday to schedule an appointment. If you do not hear from them by Tuesday, please call to schedule an appointment [facility] Surgery Clinic: [phone] -soft diet: See below -no straining to move bowels. if you do not move your bowels daily take a dose of OTC Miralax You may find that your appetite is smaller. Eat 3-6 small meals throughout the day. It is important to drink lots of water after surgery, 6-10 glasses a day. -If you were given an incentive spirometry (breathing risk intern?), continue to do this 10x/hour while awake. -We do want you up walking, at least 5-6 times per day. This is very important to prevent pneumonia and blood clots. You can climb stairs, take them slowly. -You may find that you are very tired after being in the hospital- this is normal. -please do not smoke for a minimum of 72 hours after surgery. Gastrointestinal Soft Diet Overview Overview What is a gastrointestinal soft diet? This diet is soft in texture, low in fiber, and easy to digest. The goal is to decrease) ?in the bowel that may cause and discomfort. This diet is often used after abdominal surgery or as a transitional diet after flares. Meats & Meat Substitutes ?? Foods Allowed: Chicken, turkey, fish, tender cuts of beef and pork, ground meats, eggs, creamy nut butters, tofu, skinless hot dogs, sausage patties without whole spices ?? Foods to Avoid : Tough, fibrous meats with gristle, meat with casings (hot dogs, sausage, kielbasa), lunch meats with whole spices, shellfish, beans, chunky peanut butter, nuts Fruits and Juices ?? Foods Allowed: Fruit juices without pulp, banana, avocado, applesauce, canned peaches and pears, cooked fruit without the skin/seeds.? Ground or over- cooked fruits.? Fruits ground finely in a ?smoothie?. ?? Foods to Avoid: Juices with pulp, fresh fruit (except banana and avocado), dried fruits, canned fruit cocktail and pineapple, coconut, frozen/thawed berries Vegetables ?? Foods Allowed: Well-cooked or canned vegetables, potatoes without skin, tomato sauces, vegetable juice ?? Foods to Avoid: Raw vegetables, all corn, all mushrooms, stewed tomatoes, potato skins, stir-marie vegetables, sauerkraut, pickles, olives, all dried beans, peas, and legumes Cereals and Grains ?? Foods Allowed: Low- fiber dry or cooked cereals (less than 2 grams fiber per serving), white rice, pasta, macaroni, or noodles ?? Foods to Avoid: Cereals with nuts, berries, dried fruits, whole grain cereals, bran cereals, granola, brown or wild rice, whole grain pasta Breads and Crackers ?? Foods Allowed: White/refined breads and rolls, plain bagel, toast, plain crackers, rosa crackers ?? Foods to Avoid: Whole grain breads- including white whole grain; bread/ rolls with raisins, nuts or seeds, multi-grain crackers Dairy ?? Foods Allowed: Milk, cheese, yogurt, milkshakes, pudding, ice cream, cottage cheese, sherbet ;?lactose free or low lactose versions if lactose intolerant ?? Foods to Avoid: Dairy product mixed with fresh fruit (except banana), berries, nuts or seeds Desserts ?? Foods Allowed: Plain cake, pudding, custard, ice cream, sherbet, gelatin, fruit whips ?? Foods to Avoid: Any dessert that contains nuts, dried fruits, coconut, or fruits with seeds Herbs and Spices ?? Foods Allowed: All ground spices or herbs, salt ?? Foods to Avoid: Whole spices such as peppercorns, whole cloves, anise seeds, celery seeds, jordyn, fer seeds, and fresh herbs Snacks/Other Foods ?? Foods Allowed: Sugar, honey, jelly, mayonnaise, mustard, soy sauce, oil, butter, margarine, marshmallows, cookies without dried fruits or nuts, snack chips and pretzels using refined flours ?? Foods to Avoid: Carbonated beverages, jams or jellies with seeds, popcorn After several weeks, slowly start to reintroduce the ?Foods to Avoid? back into your diet unless your doctor has told you otherwise. Try a small portion of one of these foods each day. If it does not bother you within 24 hours, it can be added to your diet. Continue to add new foods in this way. Some people may continue to have food sensitivities and may need to continue to avoid certain foods. If you cannot tolerate a food, avoid that food for a few weeks before you try it again. Guidelines when eating 1.??? Avoid any food that you cannot tolerate or that causes gas, bloating, or stomach pain. 2.??? Make time for your meals. Do not eat while you are in a hurry. Cut your food into small pieces. Chew each bite to a mashed potato consistency. Do not eat when you cannot concentrate on chewing well. 3.??? Drink at least 6-8 cups of fluid per day? Fluids include: water, coffee, tea, juice, milk, popsicles, soups, gelatin, pudding, ice cream, sherbet, and yogurt. In addition, choose caffeine-free beverages more often, especially if you are having?diarrhea. DIVERTICULAR DISEASE OVERVIEW???A diverticulum is a pouch-like structure that can form through points of weakness in the muscular wall of the colon (ie, at points where blood vessels pass through the wall). Diverticulosis affects men and women equally. The risk of diverticular disease increases with age. It occurs throughout the world but is seen more commonly in developed countries. WHAT IS DIVERTICULAR DISEASE? Diverticulosis???Diverticulosis merely describes the presence of diverticula. Diverticulosis is often found during a test done for other reasons, such as f lexible sigmoidoscopy, colonoscopy, or barium enema. Most people with diverticulosis have no symptoms and will remain symptom free for the rest of their lives. A person with diverticulosis may have diverticulitis, or diverticular bleeding. Diverticulitis???Inflammation of a diverticulum (diverticulitis) occurs when there is thinning and breakdown of the diverticular wall. This may be caused by increased pressure within the colon or by hardened particles of stool, which can become lodged within the diverticulum. The symptoms of diverticulitis depend upon the degree of inflammation present. The most common symptom is pain in the left lower abdomen. Other symptoms can include nausea and vomiting, constipation, diarrhea, and urinary symptoms such as pain or burning when urinating or the frequent need to urinate. Diverticulitis is divided into simple and complicated forms. ?Simple diverticulitis, which accounts for 75 percent of cases, is not associated with complications and typically responds to medical treatment without surgery. ?Complicated diverticulitis occurs in 25 percent of cases and usually requires surgery. Complications associated with diverticulitis can include the following: ?Abscess ? a localized collection of pus ?Fistula ? an abnormal tract between two areas that are not normally connected (eg, bowel and bladder) ?Obstruction ? a blockage of the colon ?Peritonitis ? infection involving the space around the abdominal organ ?Sepsis ? overwhelming body-wide infection that can lead to failure of multiple organs Diverticular bleeding???Diverticular bleeding occurs when a small artery located within a diverticulum is eroded and bleeds into the colon. Diverticular bleeding usually causes painless bleeding from the rectum. In approximately 50 percent of cases, the person will see maroon or bright red blood with bowel movements. Is bleeding with a bowel movement normal?It is not normal to see blood in a bowel movement; this can be a sign of several conditions, most of which are not serious (eg, hemorrhoids) but some of which are serious and require immediate treatment. Anyone who sees blood after a bowel movement should consult with their healthcare provider to determine if further testing or evaluation is needed. DIVERTICULOSIS AND DIVERTICULITIS DIAGNOSIS???Diverticulosis is often found during tests performed for other reasons. ?Barium?enema ? This is an x-ray study that uses barium in an enema to view the outline of the lower intestinal tract. This is an older test and has been largely replaced by computed tomography (CT) scan. ?Flexible sigmoidoscopy ? This is an examination of the inside of the sigmoid colon with a thin, flexible tube that contains a camera. ?Colonoscopy ? This is an examination of the inside of the entire colon. ?CT scan ? A CT scan is often used to diagnose diverticulitis and its complications. If diverticulitis (not just diverticulosis) is suspected, the above three tests should not be used because of the risk of perforation. TREATMENT Diverticulosis???People with diverticulosis who do not have symptoms do not require treatment. However, most clinicians recommend increasing fiber in the diet, which can help to bulk the stools and possibly prevent the development of new diverticula, diverticulitis, or diverticular bleeding. Fiber is not proven to prevent these conditions in all patients but may help to control recurrent episodes in some. Increase fiber???Fruits and vegetables are a good source of fiber.? Fiber content of packaged foods can be calculated by reading the nutrition label. Seeds and nuts???Patients with diverticular disease have historically been advised to avoid whole pieces of fiber (such as seeds, corn, and nuts) because of concern that these foods could cause an episode of diverticulitis. However, this belief is completely unproven. We do not suggest that patients with diverticulosis avoid seeds, corn, or nuts. Diverticulitis???Treatment of diverticulitis depends upon how severe your symptoms are. Home treatment???If you have mild symptoms of diverticulitis (mild abdominal pain, usually left lower abdomen), you can be treated at home with a clear liquid diet and oral antibiotics. However, if you develop one or more of the following signs or symptoms, you should seek immediate medical attention: ?Temperature >100.1?F (38?C) ?Worsening or severe abdominal pain ?An inability to tolerate fluids Hospital treatment???If you have moderate to severe symptoms, you may be hospitalized for treatment. During this time, you are not allowed to eat or drink; antibiotics and fluids are given into a vein. If you develop an abscess of the colon, you may require drainage of the abscess (usually performed by placing a drainage tube across the abdominal wall) or by surgically opening the affected area. Surgery???If you develop a generalized infection in the abdomen (peritonitis), you will usually require an emergency operation. A two-part operation may be necessary in some cases. ?The first operation involves removal of the diseased colon and creation of a colostomy. A colostomy is an opening between the colon and the skin, where a bag is attached to collect waste from the intestine. The lower end of the colon is temporarily sewed closed to allow it to heal. ?Approximately three to six months later, a second operation is performed to reconnect the two parts of the colon and close the opening in the skin. You are then able to empty your bowels through the rectum. Sometimes patients require up to a year to recover from the first operation, depending on how sick they were. In non-emergency situations, the diseased area of the colon can be removed and the two ends of the colon can be reconnected in one operation, without the need for a colostomy. Surgery versus medical therapy???An operation to remove the diseased area of the colon may be necessary if you do not improve with medical therapy. After an episode of uncomplicated diverticulitis, elective surgery is generally not required as the risk of another attack or requiring emergency surgery is low. However, patients with persistent symptoms attributable to diverticulitis, a history of complicated diverticulitis, or a compromised immune system should be evaluated for possible surgery to prevent another attack. In such patients, another attack has been associated with a higher risk of complications or . Of course, the decision will also depend in part upon your other medical conditions and ability to undergo surgery. In many cases, an elective operation can be performed laparoscopically, using small incisions, rather than the typical vertical (up and down) abdominal incision. Laparoscopic surgery usually allows you to recover more quickly and shortens the hospital stay. After diverticulitis resolves???After an episode of diverticulitis resolves, if you have not had a recent colonoscopy, the entire length of the colon should be evaluated to determine the extent of disease and to rule out the presence of abnormal lesions such as polyps or cancer. Recommended tests include colonoscopy, barium enema and sigmoidoscopy, or CT colonography. Diverticular bleeding???Most cases of diverticular bleeding resolve on their own. However, some people will need further testing or treatment to stop bleeding, which may include a colonoscopy, angiography (a treatment that blocks off the bleeding artery), bleeding scan, or surgery. DIVERTICULAR DISEASE PROGNOSIS Diverticulosis???Over time, diverticulosis may cause no problems or it may cause episodes of bleeding and/or diverticulitis. Approximately 15 to 25 percent of people with diverticulosis will develop diverticulitis, while 5 to 15 percent will develop diverticular bleeding. Diverticulitis???Approximately 85 percent of people with uncomplicated diverticulitis will respond to medical treatment, while approximately 15 percent of patients will need an operation. After successful treatment for a first attack of diverticulitis, one-third of patients will remain asymptomatic, one- third will have episodic cramps without diverticulitis, and one-third will go on to have a second attack of diverticulitis. The prognosis tends to remain similar following a second attack of diverticulitis. Only 10 percent of people remain symptom-free after a second attack. Subsequent attacks tend to be of similar severity, not increasing in severity as previously believed. High Fiber Diet What is Dietary Fiber? All fiber comes from plants, bushes, mane or trees.? Of course, the ones that we eat provide us with fruits, vegetables and grains.? There are many different types of fiber but the three that are most important to the health of the body are: Insoluble Fiber This fiber does not dissolve in water, nor is it fermented by the bacteria residing in the colon.? Rather, it retains water and in so doing, helps to promote a larger, bulkier and more regular bowel activity.? This, in turn, may be important in preventing disorder such as diverticulosis and hemorrhoids, and in sweeping out certain toxins and cancer causing carcinogens.? Sources of insoluble fiber are: ? whole grain wheat and other whole grains ? corn bran, including popcorn, unflavored and unsweetened ? nuts and seeds ? potatoes and the skins from most fruits from trees such as apples, bananas and avocados ? many green vegetables such as green beans, zucchini, celery and cauliflower ? some fruit plants such as tomatoes and kiwi Soluble Fiber These fibers are fermented or used by the colon bacteria as a food source or nourishment.? When these good bacteria grow and thrive, many health benefits occur in both the colon and the body.? Soluble fiber is present in some degree in most edible plant foods, but the ones with the most soluble fiber include: ? legumes such as peas and most beans, including soybeans ? oats, rye and barley ? many fruits such as berries, plums, apples bananas and pears ? certain vegetables such as broccoli and carrots ? most root vegetables ? psyllium husk supplement products Benefits of a High Fiber Diet The health benefits of a high fiber diet, consumed on a regular basis and reaching recommended amounts (below), are now fairly well-defined. There are some additional benefits in the early research stage with the prebiotic soluble fibers. What is now known regarding a high fiber diet include: Bowel Regularity A high fiber diet promotes regularity with a softer, bulkier and regular stool pattern. This decreases the chance of hemorrhoids, diverticulosis and perhaps colon cancer. Cholesterol and Reduced Triglycerides The soluble fibers are the ones that will reduce cholesterol levels when used on a regular basis. Psyllium husk and prebiotic soluble fiber will also reduce cholesterol. They may also reduce the incidence of coronary heart disease. Oats, flax seeds and legumes or beans are the recommended fibers. Colon Polyps and Cancer It is still not certain if a high fiber diet helps prevent colon cancer. Considerable research suggests that this may occur. Certainly it makes sense to increase regularity and so speed the movement of cancer causing carcinogens through the bowel. In addition, reducing a heavy meat diet reduces the bile flow from the liver in a favorable way. This, too, reduces the amount of carcinogens that reach and are manufactured in the colon. Finally, a high fiber diet, including prebiotic soluble fiber, increases the integrity and health of the wall of the colon. The risk of cancer may be reduced. Colon Wall Integrity A high fiber diet changes the bacterial makeup of the colon toward a more favorable balance. For instance, it is known that those people with obesity, diabetes type 2 and inflammatory bowel disease have a predominance of bad bacteria in the colon. This, in turn, may render the bowel wall weak and allow bacteria and, indeed, even toxins to seep through. A high fiber diet with a modest reduction in animal and meat products may return the bacterial makeup to a more positive balance. This, in particular, has been seen when the soluble fiber prebiotics are added to the diet. Blood Sugar Soluble fiber such as in legumes (beans), oats and in prebiotic fibers slows the absorption of blood sugar and so helps regulate the sugar in the blood. Insoluble fiber on a regular basis is associated with reduced risk of type 2 diabetes. Weight Loss High fiber diets are more filling and give a sense of fullness sooner than an animal and meat based diet does. In addition, the soluble prebiotic fibers have been shown to turn off the hunger hormones produced in the wall of the gut and to increase the hormones that give a sense of fullness. Those hormones are made in the wall of the gut. New medical research has shown that the bacterial makeup in the colon in overweight people is abnormal to the extent that they manufacture and absorb almost twice the number of calories through the colon wall as do normals. Prebiotic fibers (below) will help change this hormonal balancein a favorable way. Bacteria and the Function of the Colon The colon finishes the digestive process. Hopefully, the waste products move through in a nice regular manner. Insoluble fibers help this process by retaining water and so producing a bulkier, softer stool, which is easy to pass. The additional role of the colon is to provide a home for an enormous number of micro-organisms, mostly bacteria. Recent research has shown that there are over 1,000 species of bacteria with a total bacterial count ten times the number of cells in the body. These bacteria play a major role in keeping the colon wall itself healthy. In addition, these good bacteria produce a very strong immune system for the body. They significantly increase calcium absorption and bone density. They provide other documented benefits. It is the soluble fibers in the diet that are so effective in stimulating the growth of good colon bacteria. How Much is Enough? The amount of fiber in food is measured in grams.? National nutritional authorities recommend the following amounts of dietary fiber daily. Under Age 50? Over Age 50 Men? 38 grams? 30 grams Women??? 25 grams? 21 grams For a week or so, it is best to tally the amount of fiber you are consuming.? Boxed and packaged foods will have the amount of fiber per serving on the nutrition label. Which Fibers and Which Foods are Best? As noted, healthy fiber is only found in plants. The three major categories are whole grains, fruits and vegetables. Whole Grains Wheat, oats, barley, wild or brown rice, amaranth, buckwheat, bulgur, corn, millet, quinoa, rye, sorghum, teff and triticals. By far, wheat, oats and wild or brown rice are most common. Always buy whole grain products. White bread, baked goods and rolls almost always are made from wheat flour. Wheat flour is white because most of the fiber, vitamins and other nutrients have been removed. Try not buy enriched grains. What this means is that simple white flour has had vitamins added to it by the front desk host. The word, enriched, implies a good and healthy product. On the contrary, enriched means that most of the fiber has been removed and a few vitamins added. Fruits Fruits come from trees such as apple and pear or from bushes or mane. You should eat a wide variety of fruits, preferably with every meal. In many cases, the skin of a fruit such as apple will contain much of the insoluble fiber while the pulp contains most of the soluble fiber. To the extent possible, buy organic fruits as these will have little or no pesticides. Always wash fruit. Vegetables Eat a wide variety of vegetables. They should be a mainstay of lunch and dinners. Frozen vegetables retain as much nutrition and fiber as fresh vegetables. As with fruit, try to buy organic to reduce any residual pesticide ingestion. Wash fresh vegetables thoroughly. Cruciferous vegetables such as broccoli, Biggers sprouts and cauliflower contain certain chemicals such as sulforaphane. This substance has very strong anti-cancer properties and should be eaten frequently. Legumes, Beans, Peas and Soybeans These vegetables have plenty of soluble fiber and should be part of a varied vegetable intake. Beans, in particular, contain a certain type of fiber that may lead to harmless gas or bloating. Nuts and Seeds These are rich sources of fiber and are a good substitute for sweets such as candies and baked sweet goods. While nuts and seeds are rich in fiber, they also contain vegetable fat and so can and do add calories. Read the Labels As noted, fresh and frozen foods are usually better.? They have good nutrition and few, if any, chemicals added to them.? When buying packaged foods and, in particular grains, look for three things: ? The first word on the label should be whole, such as whole wheat or whole grain. ? Check out the calories and the amount of fiber in a serving. ? How many and what other additives or chemicals are added.? Fewer is always better.? Do you know what each additive does?? Some are added not for the benefit of the buyer grain but rather for manufacturers.? These could and do include sugar, artificial flavor, chemicals to prevent oxidation and spoilage, emulsifiers to blend the product.? You have to be a squaring machine operator. Fiber Facts, Nuggets and Pearls ? For breakfast you can easily get the day started well by using a high fiber, whole grain cereal.? Check the labels.? Add fruit such as blueberries and bananas.? If you are an egg eater, use whole wheat or grain toast.? Adding wheat germ gives you a good fiber kick. ? Always use whole grain or wheat with rolls and sandwiches.? Does your fast food store not have them?? Perhaps you look elsewhere.? Eating an occasional black sarkar or veggie burger provides variety. ? Snacks should consist of fruit and/or nuts.? While nuts are loaded with fiber, they are an energy rich food, meaning they have a lot of calories in a small packet. ? Fruit juices should contain pulp.? Clear juices such as clear orange, pear or apple juice contain little fiber and have a lot of fructose.? Prune juice is usually high in fiber. ? Homemade soups ? adding fresh or frozen vegetables to a chicken or vegetable stock is a good way to start homemade soup. ? Salads ? adding cooked and then chilled vegetables provide great flavoring to almost any salad.? Remember, a membreno salad has lots of cooked corn in it.? Small slices of apples or oranges and nuts such as chopped walnuts or sliced almonds always adds taste, variety and fiber to almost any salad. ? Fruit ? Try to eat fruit of some type with almost every meal. ? Rethink how you place the various foods on your dinner plate.? Reducing the portions of the meat or animal food portion to the side with equal or more portions of vegetables, legumes and fruits portion always allows for more fiber.? There was never anything magic about making the meat or animal food portion the main part of the dinner plate.? Eating from smaller plates can, over time, trick your mind and long-term habit of using a dinner plate.? Again, there is nothing magic in an 11, 12, or 13 inch dinner plate. Fiber Supplements There are a variety of fiber supplements available on the food or pharmacy shelves. Psyllium This soluble plant fiber has been used in [place] for over 2,000 years. It is a soluble fiber with mucilage in it. This acts to retain a lot of water and also is fermented by colon bacteria. When 7 grams a day are used, it does lower cholesterol. Metamucil in various forms is psyllium. Methyl Cellulose All the cellulose products come from finely ground wood chips which are then treated in a variety of ways such as boiling in acids. Methyl cellulose is an insoluble fiber which does dissolve in water. It is also an emulsifier, meaning it blends oils and water. Citrucel is methyl cellulose (MC). MC may not be appropriate for Crohn?s disease or ulcerative colitis as several medical studies have shown that certain emulsifiers dissolve the mucous lining of the colon in animals prone to Crohn?s disease. This then allows bacteria to invade the underlying tissue. Fiber and Gas Everyone has intestinal gas and that is a good thing.? It means that bacteria, hopefully the good ones, are thriving.? The normal amount of flatus passed each day depends on sex and what is eaten.? The normal number of flatus is 10-20 times a day.? When the bacteria that make intestinal gases are growing, it also means that other good bacteria are using the same fibers to grow and produce multiple health benefits, including the production of healthy short-chain fatty acids.? These substances are produced quietly in the colon and produce many health-related outcomes. Soluble fiber should always be used in a gradual manner.? If too much is consumed at any one time, then excess, but harmless, intestinal gas can occur.? People with irritable bowel syndrome are particularly prone to bloating and mild cramping.? In this instance, soluble fiber in the diet or supplement should be used in small doses and increased gradually. Finally, prebiotic fibers tend to cause the production of short-chain fatty acids which acidify the colon.? This, in turn, reduces or stops the growth of bacteria that make the smelly hydrogen sulfide gases that produce noxious flatus.? People who consume many vegetables with prebiotics or take a prebiotic fiber supplement often have non-odoriferous flatus. Fiber and Irritable Bowel Syndrome Irritable bowel syndrome (IBS) is one of the most common disorders of the lower digestive tract.? The symptoms of IBS can be quite varied.? They can be a mix of several symptoms such as constipation, diarrhea, crampy abdominal discomfort, bl oating and gas.? An attack of IBS can be triggered by emotional tension and anxiety, poor dietary habits and certain medications.? It is now known that infections in the intestine can lead to long-term IBS symptoms.? Increased amounts of fiber in the diet can help relieve the symptoms of irritable bowel syndrome by producing soft, bulky stools.? This helps to normalize the time it takes for the stool to pass through the colon.? Recent medical research with newer techniques has shown some surprising and dramatic findings for IBS patients.? Specifically, there is a very significant and abnormal shift of bacteria from those that provide health benefits to those bad bacteria that we really do not want in the gut.? The technical name for this bad group of bacteria is called Firmicutes.? Along with this abnormal bacterial collection, there is a smoldering low-grade inflammation in the gut wall that may contribute to symptoms.? The goal for IBS patients should be to gradually increase the jewell uble dietary fibers in the diet so as to promote the growth of good bacteria and so suppress the bad ones along with the associated inflammation. IBS patients need to be careful of the amount of soluble fiber they consume.? The reason for this is that, while the good colon bacteria thrive on these fibers and produce health benefits, other gas-forming bacteria may generate ex cessive but harmless gas and subsequent bloating.? Thus, soluble plant fibers or a dietary prebiotic supplement should be taken in small initial doses and then gradually increased to tolerance. Fiber and Colon Polyps/Cancer Colon cancer is a major health problem. This disease is most common in Western cultures. It is not seen very often in rural cultures where the diet is mostly plant based. Usually, colon cancer starts out as a colon polyp, a benign mushroom-shaped growth. In time it grows, and in some people it becomes cancerous. Colon cancer is usually always curable if polyps are removed when found or if surgery is performed at an early stage. It is now known that people can inherit the risk of developing colon cancer, but diet is important, too. As noted, there is a very low rate of colon cancer in residents of countries where grains are unprocessed and retain their fiber. It seems that in the [place] world, cancer-containing agents (carcinogens) remain in contact with the colon wall for a longer time and in higher concentrations. So, a large bulky stool may act to dilute these carcinogens by moving them through the bowel more quickly. Less carcinogenic exposure to the colon may mean fewer colon polyps and less cancer. A very current review of the entire world?s literature on the effect of fiber on colon polyps and cancer prevention has shown rather clearly that for every 10 grams of fiber added to the diet, there is a 10% reduction in incidence of colon cancer. So the recommended 30 gram fiber diet would result in a 30% less chance of getting these tumors. There are also substances produced in the colon by the good bacteria that seem to retard certain pre-cancer factors from developing. They are called short- chain fatty acids (SCFA). See above for description of SCFAs. A high fiber diet increases these substances. So, the combination of dietary fiber and the production of short-chain fatty acids have a clear health benefit. Fiber and Diverticulosis Prolonged, vigorous contraction of the colon over a long period of time may result in diverticulosis.? This increased pressure causes small and, eventually, larger ballooning pockets to form.? These pockets by themselves cause no problem.? However, sometimes they become infected (diverticulitis) or even break open (perforate) causing infection or inflammation within the abdomen (peritonitis).? A high fiber diet increases the bulk in the stool and thereby reduces the pressure within the colon.? By so doing, the formation of pockets may be reduced or possibly even stopped. In the past, many physicians were fearful that seeds as in tomatoes, nuts or berries were harmful and could get inside these pockets and rattle around, causing damage. We now know that this has never been the case and that these foods contain lots of fiber and are actually beneficial for diverticulosis patients. Certain bulking agents such as psyllium are traditional types of bulk producing supplements.? Psyllium is a soluble fiber.? Combining it with insoluble fiber as in wheat bran or corn bran (no gluten) can enhance this bulking effect even more.? A product containing a prebiotic, psyllium and wheat bran is probably a very good combination for bowel regularity. Prebiotin Regularity/Diverticulosis is one such product. Starting a Fiber Supplement ?When consumed at recommended levels,?dietary fiber ?is widely recognized to have health benefits, including relief of?constipation 1 . Adult women 50 and younger should consume at least 25 grams of fiber a day. Women 51 and older should have at least 21 grams a day. Adult men need at least 38 grams of fiber a day if they are younger than 50 and at least 30 grams of fiber a day if they are 51 and older. Ninety percent of the [place] population consumes far below those recommendations, averaging only 15 grams of daily fiber. Fiber-rich foods include fruits, vegetables, whole grains and legumes. Many cereals, such as bran flakes, are good sources of fiber. Although fiber supplements can fill the daily fiber gap, they usually have only one type of fiber, rather than a variety of fibers and micronutrients, and they may not provide all the health benefits associated with fiber in food. Therefore, boost your fiber intake in your diet first by eating a wide variety of high-fiber foods. If you still can?t get enough fiber to meet the daily recommendation, consider using a supplement. Many fiber supplements can be used regularly long-term. Fiber is classified as soluble or insoluble. Soluble fibers are more fermentable and may cause gas. Insoluble fibers move through the digestive system largely intact, and that can increase stool bulk. Most fiber supplements are exclusively soluble or insoluble fiber. For example, FiberCon (calcium polycarbophil) and Benefiber (wheat dextrin) are mainly soluble fiber. They tend to cause more bloating and flatulence. Citrucel (methylcellulose) is mainly insoluble fibers that are nonfermentable, so it?s less likely to contribute to bloating and gas. Psyllium husk (Metamucil and Konsyl) is rich in both soluble and insoluble fiber. Generally, fiber supplements with mainly insoluble fiber may be a better option for constipation. Before taking a fiber supplement, ask your health care provider or pharmacist to review your medications. Fiber supplements can decrease the absorption of certain medications, including drugs that treat thyroid disorders,?depression ,,?high cholesterol ,? ?and various heart ailments. Even common medications such as aspirin, ibuprofen and penicillin can be affected by an increase in fiber. You may take your medications one hour before or two hours after eating fiber to minimize the interaction. Some fiber supplements may not be appropriate for people with certain medical conditions. For example, if you have celiac disease, you may need to stay away from fiber products derived from wheat. If you have diabetes, you may need to use a flavorless formula to avoid extra sugar. Consult your health care provider for guidance about the appropriate fiber supplement. Go slow as you begin fiber therapy. Fiber supplements may cause abdominal bloating, cramping and flatulence, especially if you start at a high dose. Begin with a low dose, gradually increasing the amount of fiber. Don?t add more than 50 grams of fiber in a supplement per day, as that may affect how your body absorbs nutrients. Your health care provider can help determine what?s right for you. Drinking plenty of water and exercising regularly can help ease constipation, too. If increasing fiber doesn?t improve your symptoms, see your health care provider. Constipation can be a symptom of various underlying medical disorders, such as pelvic floor muscle dysfunction, slow gastrointestinal motility, anatomical abnormalities or endocrine dysfunction that may require different treatment.? Stand Alone Forms: Nursing Discharge Form Referrals: Leanne Berry NP [Primary Care Provider] - (Please call on Tuesday for a follow up in 1-2 weeks. ) Jenni Ramos, DO [OSTEOPATHIC DOCTOR] - (Please call on Tuesday to make an appt for the upcoming week. ) Activity:: Rest as needed Equipment/Supplies:: No Equipment Needed Diet:: Soft diet-see above Discharge Orders Discharge Orders: Discharge Order (Routine); Ordered 01/16/23 Ordered By: eJnni Ramos DS: Summary Time Spent with Patient providing and/or coordinating discharge services: Less than 30 minutes Status at Discharge Functional status at discharge: independent ambulation Overall status at discharge: patient is progressing back to baseline Mental Status: mental status grossly normal Speech and Movement: speech and movement normal Mood: congruent mood Affect: normal affect Exam Psych Mental Status: mental status grossly normal Speech and Movement: speech and movement normal Mood: congruent mood Affect: normal affect DS: Data Vitals/I&O Vitals and I&O: Vital Signs Temperature 36.1 C L 01/16/23 07:22 Temperature Source Tympanic 01/16/23 07:22 Pulse 78 01/16/23 07:22 Pulse Rhythm Regular 01/15/23 23:55 Respiratory Rate 18 01/16/23 07:22 Respiratory Effort Normal, Non-Labored 01/15/23 23:55 Respiratory Depth Normal 01/15/23 23:55 Respiratory Pattern Normal 01/15/23 23:55 Blood Pressure 160/91 H 01/16/23 07:22 Blood Pressure Mean 88 01/14/23 19:31 Blood Pressure Position Sitting 01/14/23 16:16 Pulse Oximetry 97 01/16/23 07:22 Oxygen Delivery Method Room Air 01/16/23 07:22 Oxygen Flow Rate 0 01/16/23 07:22 Pain Level 0 01/16/23 07:22 Comment bp called over the radio 01/15/23 07:36 Intake & Output 01/15/23 01/15/23 01/16/23 11:59 23:59 11:59 Intake Total 1085 / 2282.5 1197.5 / 2282.5 Balance 1085 / 2282.5 1197.5 / 2282.5 Intake: IV 1085 / 1452.5 367.5 / 1452.5 Oral 830 / 830 Other: Urine Color Yellow Yellow Urine Appearance Clear Clear Urine Odor Normal Comment unsure of amount voids independently. voids independently. Voiding Methods Toilet Toilet Toilet Data Completed and Pending Labs on day of discharge: Labs from last 24 hours 01/15/23 05:56 Ferritin 110 Add-On Test Request DONE [facility] All Active Problems Sigmoid diverticulitis (Acute) Right optic neuritis (Acute) Lipoma of arm (Acute) GERD with esophagitis (Chronic) Glaucoma of right eye (Chronic) Primary osteoarthritis of right knee (Chronic) Medical History Osteoporosis Dexa 01/2019. Fosamax started 01/2020 Essential hypertension Hyperlipidemia Diverticulitis of jejunum Surgical History S/P colonoscopy (01/19/13) History of esophagogastroduodenoscopy (EGD) (01/19/13) History of bilateral tubal ligation (~12/1978) S/P excision of lipoma (~2002) of left medial thigh Family History Mother , at 91 Depression Hyperlipidemia Breast cancer x 2; in her 40s Stroke Hypertension Father No problems noted. Son No problems noted. Son No problems noted. Maternal Grandfather , in his 70s of [place] Myocardial infarction Hyperlipidemia Maternal Grandmother Hyperlipidemia Heart disease Hypertension Cancer Doesn't know which type Paternal Grandfather No problems noted. Paternal Grandmother No problems noted. Social History Smoking/Tobacco Use Status: Former Tobacco Use tobacco type: cigarettes Quit Date: 02/14/74 Tobacco: How many years used: 7 Second Hand Exposure: No Smoking risk assessment performed?: Yes Alcohol Intake: current Alcohol Intake frequency: holidays/special occasions only Alcohol type: beer Drug use: Never Substance use type: does not use Household members: spouse Housing: house Pets and animals: No Sexually active: Yes Current gender identity: female What is your relationship status?: How often do you talk on the phone with friends or family?: decline to answer How often do you get together with friends or relatives?: decline to answer How often do you attend christian or tenriism services?: decline to answer Do you belong to any clubs or organized social groups?: decline to answer Panel score (0-1 are the most socially isolated patients): 1 Duration: 15-30 minutes/day Frequency: 3-4 times per week Dinora/Anabaptist: Pentecostalism Special dinora needs: No Seatbelt use: always Drive intox or ride w/intox mixer driver: No Do you feel safe at home: Yes Do you feel safe in your relationship?: Yes Female Reproductive History Menstrual Menopause type: natural History History 2 Para 2 Hx # Term Pregnancies Multiple births Hx # Pregnancies Ectopic pregnancies AB induced Hx Number of Living Children 2 AB spontaneous Time Spent with Patient Time Spent with Patient: 45-69 minutes Time was spent: preparing to see the patient(eg.review tests), obtaining and/or reviewing separately otained hiistory, ordering medications,tests, procedures, referring, communicating with other health senior caregiver, indepentently interpreting results, counseling the patient and care coordination
[2023-01-16] MEDS: Losartan 25 MG TAB PO (10:28)
[2023-01-16] MEDS: Timolol 0.5% 5 ML BTL OP (10:28)
--- NOTE | 2023-01-16 15:06 | PDOC.CMDIS ---
Date of service: 01/16/23 Time of Service: 15:06 LACE Index Scoring Tool Questions: Length of Stay (in days): 2 Was the patient admitted via the E.D.?: Yes E.D. Visits: 1 Answers: Total Score: 6 Risk of Readmission: Low Risk Care Management Discharge Plan Reason for Hospitalization: diverticulitis Discharge Plan: Thao will be discharged home with no new services. She will follow up with surgery and her PCP and transport with family. Patient/Family Education Needs: Review of discharge instructions, diet, activity, limitations, follow up plan, discuss Ask Me Three
== END 2023-01-16 11:17 | disposition home or self-care (01) | DRG 392 ==
LOC: ER 20:14 → MS 20:54
PROVIDERS: Admitting Provider Surgery; Emergency Provider Emergency Medicine; PCP Nurse Practitioner Family; Visit Provider Surgery
DX: K57.32 Diverticulitis of large intestine without perforation or abscess without bleeding (principal); H46.9 Unspecified optic neuritis; K21.00 Gastro-esophageal reflux disease with esophagitis, without bleeding; H40.9 Unspecified glaucoma; M81.0 Age-related osteoporosis without current pathological fracture; I10 Essential (primary) hypertension; E78.5 Hyperlipidemia, unspecified; M17.11 Unilateral primary osteoarthritis, right knee; Z87.891 Personal history of nicotine dependence; Z87.19 Personal history of other diseases of the digestive system
CPT/HCPCS: 36415; 80048; 80053; 96361; 96365; 96367; 99221; 99238; 99285; 72192; 74019; 74177; 82728; 83735; 85025; 86140; J0696; J3490

== ENCOUNTER 2023-01-20 15:12 | Outpatient (CLI) | payer MEDICARE, SELFPAY ==
[2023-01-20 13:21] LABS: Abs Immature Grans 0.03 10^3/uL (0.0-0.06); Absolute Basophil Count 0.04 10^3/uL (0.0-0.2); Absolute Eosinophil Count 0.18 10^3/uL (0.0-0.7); Absolute Neutrophil Count 7.23 10^3/uL (1.2-6.7); Basophils % 0.4; Eosinophils % 1.9; HCT 37.4 % (36.0-46.0); HGB 12.8 g/dL (11.2-15.7); Immature Grans % 0.3; Lymphocytes % 15.7; MCH 29.4 pg (27.0-33.0); MCHC 34.2 % (32.0-36.0); MCV 86 fL (80-95); MPV 11.1 fL (8.0-11.0); Monocytes % 6.3; Neutrophils % 75.4; Platelet Count 199 10^3/uL (130-400); RBC 4.36 10^6/uL (3.93-5.22); RDW-SD 40.6 fL; WBC 9.58 10^3/uL (4.4-10.8)
[2023-01-20 13:32] LABS: C-Reactive Protein 0.25 mg/dL (0.0-0.3)
== END 2023-01-20 15:13 | disposition home or self-care (01) ==
LOC: LBO 15:12
PROVIDERS: PCP Nurse Practitioner Family; Visit Provider Surgery
DX: E78.5 Hyperlipidemia, unspecified; I10 Essential (primary) hypertension; K57.30 Diverticulosis of large intestine without perforation or abscess without bleeding; M81.0 Age-related osteoporosis without current pathological fracture
CPT/HCPCS: 36415; 85025; 86140

== ENCOUNTER 2023-03-01 08:39 | Day surgery (SDC) | payer MEDICARE, SELFPAY ==
--- NOTE | 2023-02-28 12:34 | W.PM.HP.N ---
Date of service: 03/01/23 Time of Service: 10:44 Assessment and Plan Assessment and plan (1) Right optic neuritis: Status: Acute (2) GERD with esophagitis: Status: Chronic (3) Glaucoma of right eye: Status: Chronic (4) Primary osteoarthritis of right knee: Status: Chronic (5) Sigmoid diverticulosis: Status: Inactive Assessment and plan: Informed consent is obtained for the procedural (explained in simple layman's terms that?the pt and/or family could understand) explaining risks vs benefits and alternatives to the procedure and consequences if we do not do the procedure and need/rational for the procedure. Risks include but are not limited to: bleeding, infection, perforation of colon.? This would necessitate emergency surgery to repair the damage w/ possible ostomy; and other associated complications w/ the required surgery. ? Also complications of anesthesia including aspiration, MA/CVA/. I discussed with the?patient would they could expect during the procedure, post procedure and recovery time and risks.? The patient understands that they need to have a ride home after the procedure.? (6) Essential hypertension: (7) Hyperlipidemia: Qualifiers: Hyperlipidemia type: unspecified Qualified Code(s): E78.5 - Hyperlipidemia, unspecified (8) Osteoporosis: History of Present Illness Narrative: Clinic visit 01/20/23 RN: Pt here for follow up on admission for diverticulitits, discharged on 01/16. Pt reports stools are turning from liquidy to more formed, she does not feel like she has control of her bowels. Anxious to know what is normal after this. Pt here today for follow-up from her recent hospitalization for diverticulitis.. She was discharged on 01/16 with 5 days of Augmentin. She has a known history of diverticular disease pt has had colon cancer screening before.? They deny any pain or difficulty with bowel movements, or rectal bleeding.? There is no family history of any colon cancer.? Pt has not had any unexplained weight loss.? Their appetite is good.? ?They deny heart, lung, or kidney problems. They are not having heartburn or indigestion. They have not had any prior colo-rectal surgery.? The patient has not had a prior ELSY.? They deny any problems with anesthesia in the past. She on florastar. She has been having issues with loose and frequent stools since starting the Augmentin. Patient is sure that this is normal and will resolve. She moves her bowels multiple but small amounts throughout the course of the day. The patient is reassured that unfortunately this is normal from the antibiotics that she is on,approximately 3 to 5 days after the antibiotics are finished, then her bowels will return to a more normal state. We reviewed the importance of a high-fiber diet going forward, as well as the importance of avoiding to strain to move her bowels. .CE- 2012. Anesthesia: general (without airway) Previous surgical intolerances: No Previous surgical complications: No Pulmonary risk factors: Planned procedure: Yes Sleep apnea risks: No COPD/Asthma/Smoker: former smoker. Can climb one flight of stairs (12-13 steps) in less than 30 seconds without stopping and without symptoms: Yes The surgery proposed for this patient is: low risk Active cardiac conditions: none Active risk factors: none ASA (acetylsalicylic acid): not used Beta blockers: not used Kidneys: no concerns glaucoma + DM:no Today: Patient is here today for colonoscopy for f/u from diverticulitis.??? They completed a bowel prep with just a clear yellow residual effluent.? They not having any chest pain or shortness of breath, currently.? They are not experiencing any fever or chills.? They deny any productive cough or upper respiratory tract infection signs or symptoms.? They are not having abdominal pain, or nausea and vomiting.? They have not had any changes in medications, past medical history or past surgical history since previously being seen in the office. They have not had any accidents or have been in the ER since the clinic pre-operative evaluation. ??I reviewed the procedure with the patient today, including risks and benefits of the procedure, and what they could expect at home for recovery.? All questions are answered to the patient?s satisfaction today, and they are stable to proceed with the proposed procedure. ? Pt had an episode of diarrhea shortly after discharge. This was the only episode. no abdominal pain. She generally runs on the constipated side. Review of Systems All systems reviewed & are unremarkable except as noted in HPI and below PFSH All Active Problems Right optic neuritis (Acute) Lipoma of arm (Acute) GERD with esophagitis (Chronic) Glaucoma of right eye (Chronic) Primary osteoarthritis of right knee (Chronic) Medical History Osteoporosis Dexa 01/2019. Fosamax started 01/2020 Essential hypertension Hyperlipidemia Diverticulitis of jejunum Surgical History S/P colonoscopy (01/19/13) History of esophagogastroduodenoscopy (EGD) (01/19/13) History of bilateral tubal ligation (~12/1978) S/P excision of lipoma (~2002) of left medial thigh Family History Mother , at 91 Depression Hyperlipidemia Breast cancer x 2; in her 40s Stroke Hypertension Father No problems noted. Son No problems noted. Son No problems noted. Maternal Grandfather , in his 70s of MA Myocardial infarction Hyperlipidemia Maternal Grandmother Hyperlipidemia Heart disease Hypertension Cancer Doesn't know which type Paternal Grandfather No problems noted. Paternal Grandmother No problems noted. Social History Smoking/Tobacco Use Status: Former Tobacco Use tobacco type: cigarettes Quit Date: 02/14/74 Tobacco: How many years used: 7 Second Hand Exposure: No Smoking risk assessment performed?: Yes Alcohol Intake: current Alcohol Intake frequency: holidays/special occasions only Alcohol type: beer Drug use: Never Substance use type: does not use Details: Pt reports using CBD gummies Last took Tuesday02/27/23 Household members: spouse Housing: house Pets and animals: No Sexually active: Yes Current gender identity: female What is your relationship status?: How often do you talk on the phone with friends or family?: decline to answer How often do you get together with friends or relatives?: decline to answer How often do you attend pentecostal or yazdanism services?: decline to answer Do you belong to any clubs or organized social groups?: decline to answer Panel score (0-1 are the most socially isolated patients): 1 Duration: 15-30 minutes/day Frequency: 3-4 times per week Dinora/Pentecostalism: Sikhism Special dinora needs: No Seatbelt use: always Drive intox or ride w/intox 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 lisinopril AdvReac Mild Cough Verified 03/01/23 09:25 Home Medications Medication Instructions Recorded Confirmed Type famotidine 10 mg tablet (Acid 10 mg PO PRN PRN 12/13/19 03/01/23 History Doctor Of Osteopathy (famotidine)) multivitamin (Daily Multi-Vitamin 1 tab PO DAILY 12/13/19 03/01/23 History tablet) naproxen sodium 220 mg capsule 220 mg PO PRN PRN 12/13/19 03/01/23 History (Aleve) vit C 250 mg-vit E 90 mg-zinc 40 1 tab PO ONCE 12/13/19 03/01/23 History mg-copper 1 qg-eksqfk-ocywdx capsule (PreserVision AREDS-2) L. acidophilus,casei,rhamnosus 50 1 cap PO DAILY #30 caps 10/03/20 03/01/23 Rx billion cell capsule,delayed release (Bio-K plus) calcium carbonate 600 mg-vitamin 1 tab PO DAILY 03/16/21 03/01/23 History D3 10 mcg (400 unit) tablet (Calcium with Vitamin D) diphenhydramine 25 1 tab PO QHS PRN 03/16/21 03/01/23 History mg-acetaminophen 500 mg tablet (Tylenol PM Extra Strength) simethicone 125 mg capsule (Gas 125 mg PO QD-BID PRN 03/16/21 03/01/23 History Relief (simethicone)) latanoprost 0.005 % eye drops 1 drp ophthalmic (eye) QHS 05/10/22 03/01/23 History timolol maleate 0.5 % eye gel 1 drp ophthalmic (eye) DAILY 05/10/22 03/01/23 History forming solution alendronate 70 mg tablet 70 mg PO QWEEK #13 tabs 06/24/22 03/01/23 Rx bisacodyl 5 mg tablet,delayed 5 mg PO ONCE colonscopy bowel prep 01/20/23 03/01/23 Rx release (Dulcolax (bisacodyl)) #4 tabs polyethylene glycol 3350 17 238 g PO ONCE colonoscopy prep 01/20/23 03/01/23 Rx gram/dose oral powder #238 grams losartan 25 mg tablet 25 mg PO DAILY #90 tabs 02/21/23 03/01/23 Rx Exam Narrative Exam Narrative: PHYSICAL EXAM GENERAL APPEARANCE: Alert, healthy appearance, oriented, x 3,? in no acute distress LUNGS: normal respiration/normal chest excursion. ?Clear to auscultation bilaterally. ?No wheeze. ?HEART: Regular rate and rhythm. no murmurs BDOMEN: soft and non-tender to palpation.? Normal bowel sounds.? Time Spent Time spent with Patient: <40 minutes Time was spent: preparing to see the patient(eg.review tests), obtaining and/or reviewing separately otained hiistory, ordering medications,tests, procedures, referring, communicating with other health career consultant, indepentently interpreting results, counseling the patient and care coordination
--- NOTE | 2023-02-28 12:42 | W.PM.DSUDISC ---
Date of service: 03/01/23 Time of Service: 12:42 Discharge Plan Disposition Patient Disposition: Home Condition: Good Discharge Details Reason For Visit: colon scope Attending Provider: Jenni Ramos Primary Care Provider: Leanne Berry Home Meds and New Rx's Prescriptions: Continued latanoprost 0.005 % drops 1 drp OP QHS multivitamin [Daily Multi-Vitamin] Tablet 1 tab PO DAILY PreserVision AREDS-2 [id number] un-jbhi-kn-mg capsule 1 tab PO ONCE Rx Instructions: administer with meals naproxen sodium [Aleve] 220 mg capsule 220 mg PO PRN PRN famotidine [Acid Clinical Data Abstractor (famotidine)] 10 mg tablet 10 mg PO PRN PRN diphenhydramine-acetaminophen [Tylenol PM Extra Strength] 25-500 mg tablet 1 tab PO QHS PRN calcium carbonate-vitamin D3 [Calcium with Vitamin D] 600 mg-10 mcg (400 unit) tablet 1 tab PO DAILY simethicone [Gas Relief (simethicone)] 125 mg capsule 125 mg PO QD-BID PRN alendronate 70 mg tablet 70 mg PO QWEEK Qty: 13 3RF Patient Comments: Rx Instructions: Take 1 tablet once a week timolol maleate 0.5 % gel forming solution 1 drp Ophthalmic DAILY losartan 25 mg tablet 25 mg PO DAILY Qty: 90 3RF Bio-K plus 50 billion cell capsule,delayed release(DR/EC) 1 cap PO DAILY Qty: 30 0RF Rx Instructions: finish all Discontinued polyethylene glycol 3350 17 gram/dose powder 238 g PO ONCE Qty: 238 0RF Rx Instructions: take per colonoscopy instructions bisacodyl [Dulcolax (bisacodyl)] 5 mg tablet,delayed release (DR/EC) 5 mg PO ONCE Qty: 4 0RF Rx Instructions: take per colonoscopy instructions Discharge Instructions Additional Instructions: DSU Colonoscopy Post-Op Instructions Instructions for Everyone who is given Anesthesia: For your safety, please do the following for the next twenty-four (24) hours: *Do Not operate a motor vehicle (car, truck, motorcycle, etc.) *Do Not drink alcoholic beverages or use any recreational drugs for the first 24 hours or while taking pain medications. The medications in your body may have a reaction that can be dangerous. *Do Not make any important decisions or sign any important papers. Findings: Minor diverticula Follow up: No further screening colonoscopies required at this time. Of course, you should continue to have a yearly physical exam including a rectal exam. If you should ever notice any pain or difficulty having a bowel movement, blood in the stool, unexplained weight loss, or change in your bowel habits, please contact your health provider. 1. No lifting over 20 pounds or strenuous activity for the first 24 hours after your procedure. After 24 hours there are no restrictions on your activity but you may feel fatigued for a few days. 2. After you arrive home you may have a light meal and return to your normal diet as you can tolerate it without feeling sick to your stomach. 3. You may have a bloated, gaseous feeling in your belly (abdomen) after a colonoscopy. Passing gas and belching will help. Walking or lying down on your left side with your knees flexed may relieve the discomfort. Call the office at [phone] (Office) or [phone] (Hospital) right away if you notice any of the following: a.Vomiting of blood or ?coffee ground stools?. b.Rectal bleeding 1Tbsp, blood clots or continuous bleeding. c.Severe belly (abdominal) pain. d.A hard distended belly (abdomen) and an inability to pass gas. 4. Please don?t expect to have a normal BM (bowel movement) for 2-3 days after your procedure. 5. If there are questions regarding the findings of your procedure, please contact your doctor 6. If you are unable to contact your doctor with a problem, contact the hospital at [phone]. 7. Continue all your regular medications unless directed otherwise. I understand the above instructions and have no questions. Signature of Patient or Adult Escort Name of Responsible Adult Escort Signature of Nurse Date/Time Stand Alone Forms: Anesthesia Discharge Inst., Sheyla Chow (DSU) Activity:: see above Diet:: see above Discharge Orders Discharge Orders: Discharge Order (Routine); Ordered 03/01/23 Ordered By: Jenni Ramos DS: Diagnosis Discharge Diagnosis (1) Right optic neuritis: Status: Acute (2) GERD with esophagitis: Status: Chronic (3) Glaucoma of right eye: Status: Chronic (4) Primary osteoarthritis of right knee: Status: Chronic (5) Sigmoid diverticulosis: Status: Inactive Asessment and Plan: The patient is seen and examined after their colonoscopy.? The patient has been able to pass gas.? They are not having abdominal pain.? They have been able to tolerate liquids and a snack.? They do not have any nausea or vomiting.? They are not having any chest pain or shortness of breath.??? They are not having any rectal bleeding. Their vital signs have been stable-see nursing notes. We discussed findings during their colonoscopy, and any biopsies that were done/polyps that were removed. The patient will be sent a letter with any biopsy results, and when to repeat the colonoscopy.-see discharge instructions. Patient was given explicit instructions to follow-up regarding colonoscopy-refer to discharge instructions.? We reviewed resumption of medications. Patient verbalized understanding and discharged in stable and satisfactory condition- See nursing notes. (6) Essential hypertension: (7) Hyperlipidemia: (8) Osteoporosis:
--- NOTE | 2023-02-28 14:00 | W.COLOREPORT ---
Date of service: 03/01/23 Time of Service: 11:00 Colonoscopy Report Date of procedure: 03/01/23 Pre-op diagnosis general: diverticula Post-op diagnosis procedure note: same Surgeon: Jenni Ramos Anesthesia Type: General LMA/ETT Estimated blood loss (mL): 0 Pathology: none sent Complications: None Disposition: same day Prep: Miralax/Dulcolax Procedure Description: After informed consent was obtained the patient was taken to the procedure room and placed in a left decubitous position. Monitors were applied and a time out was done. The patients name, date of , procedure, allergies to medications and metal in their body was reviewed. The patient was then sedated. Once sedated and comfortable a rectal exam was done. External exam was normal. Internal exam revealed a normal sphincter tone and no palpable masses. The scope was then introduced and retrofelexed. No internal hemorrhoids were identified. The scope was then advanced to the cecum without difficulty. The TI and appendiceal orifice were identified. The prep was BBPS 3 in all segments for a total of 9. The scope was then slowly retracted over 10 minutes back into the rectum. Polyps were removed at there were no polyps or AVMs visualized. She has very few and very small diverticula confined to the sigmoid colon. There are no signs of active bleeding or infection. The infection seems to have resolved nicely. The scope was removed and the patient was woken up and taken back to Same day surgery in stable condition. The patient tolerated the procedure well and there were no immediate complications. Findings were reviewed with patient. She was given literature on diverticular disease and the importance of high-fiber diet and avoiding straining to move her bowels Follow up: The patient does not require any further routine screening colonoscopies, unless they develop changes in bowel habits or other new gastrointestinal complaints.
[2023-03-01 09:05] VITALS: BP 125/77; PULSE 68; RESP 16; TEMP 36.4; O2SAT 98
[2023-03-01] MEDS: Lactated Ringers 1,000 ML 80 ML IV (09:43)
--- NOTE | 2023-03-01 10:23 | W.ANESPRE ---
General Info Date of Service Date Performed: 03/01/23 Height: 5 ft 3 in Weight: 52.9 kg Body Mass Index (BMI): 20.6 Surgical Procedure: Operation Date: 03/01/23 10:35 Proposed Procedure Side Surgeon carlos Ramos, DO Meds Allergies and Home Medications Allergies Allergy/AdvReac Type Severity Reaction Status Date / Time ciprofloxacin Allergy Severe effects Verified 03/01/23 09:25 my tendons, causes pain in legs. lisinopril AdvReac Mild Cough Verified 03/01/23 09:25 Home Medication Medication Instructions Recorded famotidine 10 mg tablet (Acid 10 mg PO PRN PRN 12/13/19 Stock Or Delivery Clerk (famotidine)) multivitamin (Daily Multi-Vitamin 1 tab PO DAILY 12/13/19 tablet) naproxen sodium 220 mg capsule 220 mg PO PRN PRN 12/13/19 (Aleve) vit C 250 mg-vit E 90 mg-zinc 40 1 tab PO ONCE 12/13/19 mg-copper 1 lu-lvmbdh-ofurqz capsule (PreserVision AREDS-2) L. acidophilus,casei,rhamnosus 50 1 cap PO DAILY #30 caps 10/03/20 billion cell capsule,delayed release (Bio-K plus) calcium carbonate 600 mg-vitamin 1 tab PO DAILY 03/16/21 D3 10 mcg (400 unit) tablet (Calcium with Vitamin D) diphenhydramine 25 1 tab PO QHS PRN 03/16/21 mg-acetaminophen 500 mg tablet (Tylenol PM Extra Strength) simethicone 125 mg capsule (Gas 125 mg PO QD-BID PRN 03/16/21 Relief (simethicone)) latanoprost 0.005 % eye drops 1 drp ophthalmic (eye) QHS 05/10/22 timolol maleate 0.5 % eye gel 1 drp ophthalmic (eye) DAILY 05/10/22 forming solution alendronate 70 mg tablet 70 mg PO QWEEK #13 tabs 06/24/22 losartan 25 mg tablet 25 mg PO DAILY #90 tabs 02/21/23 Current Visit Medications: Current Medications Generic Name Dose Route Start Last Admin Trade Name Freq PRN Reason Stop Dose Admin Hyoscyamine Sulfate 0.125 mg 03/01/23 01:53 Hyoscyamine 0.125 Mg Sl/Oral/Chew SL 03/31/23 01:52 DIRECTED PRN Ringer's Solution 1,000 mls @ 80 mls/hr 03/01/23 06:00 03/01/23 09:43 IV 03/01/23 23:59 80 mls/hr INFUSION SANTI Administration IV Miscellaneous Supplies 1 each 03/01/23 06:00 Iv Access IV 03/01/23 23:59 DIRECTED SANTI Ondansetron HCl 4 mg 03/01/23 01:53 Ondansetron 4 Mg/2 Ml Vial IVP 03/31/23 01:52 Q4H PRN PRN Nausea / Vomiting Sodium Chloride 0 ml 03/01/23 06:00 Normal Saline Flush 10 Ml Syr IV 03/01/23 23:59 PRN PRN Sodium Chloride 0 ml 03/01/23 06:00 Normal Saline 10 Ml Vial IJ 03/01/23 23:59 DIRECTED PRN Sterile Water 0 ml 03/01/23 06:00 Water,Injection,Sterile 10 Ml Vial IJ 03/01/23 23:59 DIRECTED PRN PFSH Active Problems Active Problems: Problem Status Onset Code Right optic neuritis H46.9 Lipoma of arm D17.20 GERD with esophagitis K21.0 Glaucoma of right eye H40.9 Primary osteoarthritis of right knee M17.11 Medical History Medical History Osteoporosis Dexa 01/2019. Fosamax started 01/2020 Essential hypertension Hyperlipidemia Diverticulitis of jejunum Surgical History Surgical History S/P colonoscopy (01/19/13) History of esophagogastroduodenoscopy (EGD) (01/19/13) History of bilateral tubal ligation (~12/1978) S/P excision of lipoma (~2002) of left medial thigh Tobacco Smoking/Tobacco Use Status: Former Tobacco Use Passive smoking exposure: Yes (in the 1960's and 1970's) Second hand exposure: No Alcohol Alcohol Intake: current Alcohol intake frequency: holidays/special occasions only Alcohol type: beer Substance Use Substance use: Never Substance use type: does not use Details: Pt reports using CBD gummies Last took Tuesday02/27/23 Prental History History 2 Para 2 Hx # Term Pregnancies Multiple births Hx # Pregnancies Ectopic pregnancies AB induced Hx Number of Living Children 2 AB spontaneous Vital Signs and Lab Results Vital Signs Most Recent Vital Signs in EMR: Most Recent Vital Signs Temp Pulse Resp BP Pulse Ox 36.4 C L 68 16 125/77 98 03/01/23 09:05 03/01/23 09:05 03/01/23 09:05 03/01/23 09:05 03/01/23 09:05 Lab Results Blood Type / Crossmatch: No Data to Display Complete Blood Count: No Data to Display Complete Metabolic Panel: No Data to Display Liver Function Panel: No Data to Display Coagulation Panel: No Data to Display Cardiac Panel: No Data to Display Arterial Blood Gas: No Data to Display Venous Blood Gas: No Data to Display Pancreas Panel: No Data to Display Thyroid Panel: No Data to Display Infectious Disease: No Data to Display Blood Cultures: No Data to Display Toxicology Panel: No Data to Display Imaging and Studies Imaging and Studies Study information below may be from another EMR and interpreted by another provider. Please see original notes in EMR for more complete details. Other Study Summary:: MRI reviewed and CT abdomen please see reports under diagnostics Anesthesia Assessment and Plan Anesthesia History Personal History: No History of Anesthesia Complications Family History: No Family History of Anesthesia Complications and Family History Unknown Exercise Tolerance Exercise Tolerance: Metabolic Equivalents>4 Pertinent Negatives Pertinent Negatives: No Major Cardiovascular Symptoms or Complaints, No Major Pulmonary Symptoms or Complaints and No History of CVA/TIA Cardiac & Pulmonary Exam Cardiac Exam: Normal S1/S2 Heart Sounds Pulmonary Exam: Clear Bilateral Breath Sounds Implantable Cardiac Device Does patient have a Pacemaker or an ICD?: No Airway Exam Known Difficult Airway: No Mallampati Class: 3 Mouth Opening: Normal (> 3cm) Thyromental Distance: Greater than 3 cm Neck Range of Motion: Full ROM Neck Circumference: Normal Teeth Condition: Normal Dentition (pt mentioned chipped tooth 21 ) ASA Classification ASA Score: ASA 2 Emergency Case?: No NPO Status NPO Status: NPO Clears >2 hours, Solids >8 hours Anesthesia Plan Resuscitation Status: Full Code Anesthesia Technique: General Anesthesia Airway Planned: Natural Airway Monitors Used: Standard Monitors Preoperative Comments:: pt reports intermittent reflux but no reflux recently or this am
[2023-03-01 11:16] VITALS: BMI 20.6
[2023-03-01 11:22] VITALS: BP 110/55; PULSE 74; RESP 16; TEMP 36.4; O2SAT 99
[2023-03-01 11:53] VITALS: BP 136/74; PULSE 68; RESP 16; TEMP 36.2; O2SAT 98
--- NOTE | 2023-03-01 13:48 | W.ANESPOSTOP ---
Postoperative Evaluation Date, Time and Location Date Performed: 03/01/23 Time Performed: :24 Patient Location: Day Surgery Unit Vital Signs Most Recent Imported Vital Signs: Most Recent Vital Signs Temp Pulse Resp BP Pulse Ox 36.2 C L 68 16 136/74 98 03/01/23 11:53 03/01/23 11:53 03/01/23 11:53 03/01/23 11:53 03/01/23 11:53 Pain Score Most Recent Pain Score: Most Recent Pain Score Pain Level 0 03/01/23 11:53 Assessment Mental Status: Awake (Alert & Oriented to Patient Baseline) Airway and Respiratory Function: Patent airway with normal (patient baseline) respiratory exam Cardiovascular Function: Hemodynamically Stable Hydration Status: Adequately Hydrated Nausea & Vomiting: No Nausea or Vomiting Pain: Pt. Denies Any Pain Peripheral Nerve Block: Patient did not receive a nerve block
== END 2023-03-01 12:54 | disposition home or self-care (01) ==
PROVIDERS: PCP Nurse Practitioner Family; Visit Provider Surgery
PROC: 0DJD8ZZ Inspection of Lower Intestinal Tract, Via Natural or Artificial Opening Endoscopic (ICD-10-PCS; CPT 45378; principal; 2023-03-01 10:30)
DX: K57.30 Diverticulosis of large intestine without perforation or abscess without bleeding (principal); K21.00 Gastro-esophageal reflux disease with esophagitis, without bleeding; E78.5 Hyperlipidemia, unspecified; I10 Essential (primary) hypertension
CPT/HCPCS: 45378; J2001; J2704

== ENCOUNTER 2023-06-02 04:50 | Outpatient (CLI) | payer MEDICARE, SELFPAY ==
[2023-06-02 08:03] LABS: Anion Gap 7.4 mmol/L (3-11); BUN 17 mg/dL (7-18); CO2 30.6 mmol/L (21.0-32.0); CREATININE 0.8 mg/dL (0.55-1.02); Calcium 10.1 mg/dL (8.5-10.1); Calculated LDL 150 mg/dL (<100); Chloride 105 mmol/L (98-107); Cholesterol 244 mg/dL (<200); Estimated GFR 77.75 (mL/min/1.73m2); Glucose 88 mg/dL (74-106); HDL Cholesterol 56 mg/dL (40-60); Potassium 3.9 mmol/L (3.5-5.1); Sodium 143 mmol/L (136-145); Triglyceride 193 mg/dL (<150)
== END 2023-06-02 04:51 | disposition home or self-care (01) ==
LOC: LBO 04:50
PROVIDERS: PCP Nurse Practitioner Family; Visit Provider Nurse Practitioner Family
DX: Z00.00 Encounter for general adult medical examination without abnormal findings (principal); I10 Essential (primary) hypertension
CPT/HCPCS: 36415; 80048; 80061

== ENCOUNTER → 2023-06-06 04:04 | Outpatient (CLI) | payer MEDICARE, SELFPAY ==
--- NOTE | 2023-06-06 07:30 | DI.DEXA_ITS ---
Exam(s) XR DEXA BONE DENSITY W/WO CAL EXAM: XR DEXA BONE DENSITY W/WO CAL CLINICAL HISTORY: osteopenia,screening for osteoporosis in postmenopausal woman,z78.0 TECHNIQUE: COMPARISON: CR XR DEXA BONE DENSITY W/WO CAL from 05/29/2021 FINDINGS: Lateral Spine Image: Unremarkable. No compression deformities identified. Left hip: Total T-Score: -2.1. This compares to -2.3 on the prior examination. Total Z-Score: -0.4 T- and Z-scores: Findings are consistent with osteopenia. Lumbar Spine: Total T-Score: -0.6. This compares to -0.7 on the prior examination. Total Z-Score: 1.7 T- and Z-scores: Within normal limits. IMPRESSION: No evidence of osteoporosis.
== END ==
PROVIDERS: PCP Nurse Practitioner Family; Visit Provider Nurse Practitioner Family
DX: Z78.0 Asymptomatic menopausal state (principal); Z13.820 Encounter for screening for osteoporosis
CPT/HCPCS: 77080

== ENCOUNTER 2023-08-04 16:09 | Emergency (ER) | payer MEDICARE, SELFPAY ==
[2023-08-04 16:15] VITALS: BP 150/70; PULSE 86; RESP 20; TEMP 36.7; O2SAT 98
--- NOTE | 2023-08-04 16:30 | DI.CT_ITS ---
Exam(s) CT ABDOMEN PELVIS W EXAM: CT ABDOMEN PELVIS W CLINICAL HISTORY: LLQ pain. TECHNIQUE: Imaging Protocol: Axial computed tomography images with coronal and sagittal reformatted images were created and reviewed CONTRAST MATERIAL: Intravenous: Omnipaque 350 Contrast volume:90 ml Oral: / no COMPARISON: CT CT ABDOMEN PELVIS W from 01/15/[address] PELVIC WO from 01/15/2023 FINDINGS: ABDOMEN and PELVIS: Lung Bases: No acute findings. Liver: Normal density. Stable cyst left lobe. No suspicious mass. Gallbladder and biliary tract: No radiodense calculus. No biliary dilation. Pancreas: Normal density. No abnormal calcifications or inflammatory process. No evidence of mass. Spleen: Normal. Kidneys: Normal size, contour and axis. No radiodense stones. No obstructive uropathy. No suspicious masses seen. Adrenal glands: No masses seen. Vasculature: Abdominal aorta non-dilated. Soft tissues: Unremarkable. Bladder: No gross wall thickening. No calculi.No focal mass. Bowel: No obstruction. Appendix normal.Colonic diverticulosis. No evidence of colonic diverticuli tis. Multiple small bowel diverticula are noted. there is some inflammation involving loops of sma ll bowel in the mid lower pelvis. Findings likely represent diverticulitis of the small bowel. Norm al quantity of stool. Peritoneal cavity: No ascites. No focal collection. Stranding in the mesentery of the low pelvis. N o abscess or perforation. Bones: Advanced degenerative changes of both hips. Degenerative changes and mild scoliosis in the tad mbar spine. Reproductive organs: Unremarkable. Lymph nodes: Mildly enlarged mesenteric lymph nodes, likely reactive. IMPRESSION:: Diverticulitis involving the small bowel in the mid low pelvis. Findings called to Tawanna Bauman of the emergency department. RADIATION DOSE DELIVERED: 617.14mGy.cm Total DLP DATA REPOSITORY: All CT scans at this facility are submitted to the National Radiology Data Registry (NRDR) Dose Index Registry (DIR) with the [employer] (A[employer]). RADIATION OPTIMIZATION: All CT scans at this facility use at least one of these dose optimization te chniques: automated exposure control; mA and/or kV adjustment per patient size (includes targeted exa ms where dose is matched to clinical indication); or iterative reconstruction.
--- NOTE | 2023-08-04 16:44 | ED.GENADUL_ITS ---
Discharge Plan Disposition Patient Disposition: Home Condition: Stable Discharge Details Clinical Impression: Diverticulitis small intestine Primary Care Provider: Leanne Berry ED Provider: Tawanna Bauman Home Meds and New Rx's Prescriptions: New amoxicillin-pot clavulanate 875-125 mg tablet 1 tab PO BID Qty: 20 0RF Continued latanoprost 0.005 % drops 1 drp OP QHS multivitamin [Daily Multi-Vitamin] Tablet 1 tab PO DAILY PreserVision AREDS-2 175-543-00-1 mu-qgfx-mi-mg capsule 1 tab PO ONCE Rx Instructions: administer with meals naproxen sodium [Aleve] 220 mg capsule 220 mg PO PRN PRN famotidine [Acid Video Surveillance Technician (famotidine)] 10 mg tablet 10 mg PO QHS PRN Tylenol PM Extra Strength 25-500 mg tablet 1 tab PO QHS PRN calcium carbonate-vitamin D3 [Calcium with Vitamin D] 600 mg-10 mcg (400 unit) tablet 1 tab PO DAILY simethicone [Gas Relief (simethicone)] 125 mg capsule 125 mg PO QD-BID PRN timolol maleate 0.5 % gel forming solution 1 drp Ophthalmic DAILY losartan 25 mg tablet 25 mg PO DAILY Qty: 90 3RF alendronate 70 mg tablet 70 mg PO QWEEK Qty: 13 3RF Patient Comments: Rx Instructions: Take 1 tablet once a week Bio-K plus 50 billion cell capsule,delayed release(DR/EC) 1 cap PO DAILY Qty: 30 0RF Rx Instructions: finish all Discharge Instructions Instructions: Diverticulitis (DC), Diverticulitis Additional Instructions: Take the antibiotic as prescribed Yogurt daily or acidophilus pills while on the antibiotic to prevent infection [place] diet, stay away from seeds and nuts Follow-up with Dr. Ramos as needed or your primary care physician and return earlier should you have new or worsening complaints including fever, worsening pain, bloody stool Referrals: Leanne Berry NP [Primary Care Provider] - Jenni Ramos DO [OSTEOPATHIC DOCTOR] - HPI General Date/Time Provider Initiated Documentation: 08/04/23 16:29 . HPI Narrative: This 73-year-old female presents with report of left lower quadrant abdominal pain for the past week which has been worsening. Went to urgent care today and sent patient to the emergency department for assessment. Denies any nausea or vomiting. Denies any chest pain or shortness of breath. Denies exacerbation of pain with walking or urinary symptoms. Related Data Home Medications Medication Instructions Recorded Confirmed multivitamin (Daily Multi-Vitamin 1 tab PO DAILY 12/13/19 08/04/23 tablet) naproxen sodium 220 mg capsule 220 mg PO PRN PRN 12/13/19 08/04/23 (Aleve) vit C 250 mg-vit E 90 mg-zinc 40 1 tab PO ONCE 12/13/19 08/04/23 mg-copper 1 my-gcownn-sxhrks capsule (PreserVision AREDS-2) L. acidophilus,casei,rhamnosus 50 1 cap PO DAILY #30 caps 10/03/20 08/04/23 billion cell capsule,delayed release (Bio-K plus) calcium carbonate 600 mg-vitamin 1 tab PO DAILY 03/16/21 08/04/23 D3 10 mcg (400 unit) tablet (Calcium with Vitamin D) diphenhydramine 25 1 tab PO QHS PRN 03/16/21 08/04/23 mg-acetaminophen 500 mg tablet (Tylenol PM Extra Strength) simethicone 125 mg capsule (Gas 125 mg PO QD-BID PRN 03/16/21 08/04/23 Relief (simethicone)) latanoprost 0.005 % eye drops 1 drp ophthalmic (eye) QHS 05/10/22 08/04/23 timolol maleate 0.5 % eye gel 1 drp ophthalmic (eye) DAILY 05/10/22 08/04/23 forming solution losartan 25 mg tablet 25 mg PO DAILY #90 tabs 02/21/23 08/04/23 alendronate 70 mg tablet 70 mg PO QWEEK #13 tabs 04/25/23 08/04/23 famotidine 10 mg tablet (Acid 10 mg PO QHS PRN 05/12/23 08/04/23 Video Surveillance Technician (famotidine)) amoxicillin 875 mg-potassium 1 tab PO BID #20 tabs 08/04/23 clavulanate 125 mg tablet Previous Rx's Medication Instructions Recorded L. acidophilus,casei,rhamnosus 50 1 cap PO DAILY #30 caps 10/03/20 billion cell capsule,delayed release (Bio-K plus) losartan 25 mg tablet 25 mg PO DAILY #90 tabs 02/21/23 alendronate 70 mg tablet 70 mg PO QWEEK #13 tabs 04/25/23 amoxicillin 875 mg-potassium 1 tab PO BID #20 tabs 08/04/23 clavulanate 125 mg tablet Allergies Allergy/AdvReac Type Severity Reaction Status Date / Time ciprofloxacin Allergy Severe effects Verified 08/04/23 16:28 my tendons, causes pain in legs. lisinopril AdvReac Mild Cough Verified 08/04/23 16:28 General Stated Complaint: Abd Prob AVELINA: 3 Exam Narrative Exam Narrative: Well-appearing 73-year-old female in no acute distress, left lower quadrant tenderness Assessment, no CVA tenderness, distal pulses intact No rebound or guarding on assessment No respiratory distress, cardiac rate rhythm regular Course Vital Signs Vital signs: Vital Signs Temperature 36.7 C 08/04/23 16:15 Pulse 86 08/04/23 16:15 Respiratory Rate 20 08/04/23 16:15 Blood Pressure 150/70 H 08/04/23 16:15 Pulse Oximetry 98 08/04/23 16:15 Temperature 36.7 C 08/04/23 16:15 Pulse 86 08/04/23 16:15 Respiratory Rate 20 08/04/23 16:15 Respiratory Effort Normal, Non-Labored 08/04/23 16:17 Blood Pressure 150/70 H 08/04/23 16:15 Blood Pressure Position Sitting 08/04/23 16:15 Pulse Oximetry 98 08/04/23 16:15 Oxygen Delivery Method Room Air 08/04/23 16:15 Oxygen Flow Rate 0 08/04/23 16:15 Pain Level 6 08/04/23 16:15 Medical Decision Making 73-year-old female presenting with left lower quadrant pain history of diverticulitis with similar presentation per patient, no evidence of acute abdomen. CT shows evidence of diverticulitis, will initiate Augmentin, mild leukocytosis at 15,000, labs do not show evidence of acute abnormality Discussed the CT with Dr. Mijares, radiology, specifically no evidence of free air perforation or abscess Denies any urinary complaints Return precautions reviewed and patient expressed understanding Follow-up with Dr. Ramos/surgery recommended given recurrent episode of diverticulitis Quality:SDOH Health Related Social Needs: Health related social needs personal safety Health related social needs details none PFSH All Active Problems (Updated 08/04/23 @ 18:05 by OLIVIA Gamez) Diverticulitis small intestine (Acute) Hyperlipidemia (Chronic) Osteoporosis (Chronic) Dexa 01/2019. Fosamax started 01/2020 Essential hypertension (Chronic) GERD with esophagitis (Chronic) Glaucoma of right eye (Chronic) Primary osteoarthritis of right knee (Chronic) Sigmoid diverticulosis (Chronic) Medical History (Updated 08/04/23 @ 18:05 by OLIVIA Gamez) Right optic neuritis Negative MRI Diverticulitis of jejunum Surgical History S/P colonoscopy (01/19/13) History of esophagogastroduodenoscopy (EGD) (01/19/13) History of bilateral tubal ligation (~12/1978) S/P excision of lipoma (~2002) of left medial thigh Family History Mother , at 91 Depression Hyperlipidemia Breast cancer x 2; in her 40s Stroke Hypertension Father No problems noted. Son No problems noted. Son No problems noted. Maternal Grandfather , in his 70s of [place] Myocardial infarction Hyperlipidemia Maternal Grandmother Hyperlipidemia Heart disease Hypertension Cancer Doesn't know which type Paternal Grandfather No problems noted. Paternal Grandmother No problems noted. Social History Smoking/Tobacco Use Status: Former Tobacco Use tobacco type: cigarettes Quit Date: 02/14/74 Tobacco: How many years used: 4 Second Hand Exposure: No Smoking risk assessment performed?: Yes Alcohol Intake: current Alcohol Intake frequency: holidays/special occasions only Alcohol type: beer Drug use: Never Substance use type: does not use Details: Pt reports using CBD gummies Last took Tuesday02/27/23 Household members: spouse Housing: house Pets and animals: No Sexually active: Yes Current gender identity: female What is your relationship status?: How often do you talk on the phone with friends or family?: decline to answer How often do you get together with friends or relatives?: decline to answer How often do you attend gnosticist or gnosticism services?: decline to answer Do you belong to any clubs or organized social groups?: decline to answer Panel score (0-1 are the most socially isolated patients): 1 Duration: 15-30 minutes/day Frequency: 3-4 times per week Dinora/Jew: Anabaptist Special dinora needs: No Seatbelt use: always Drive intox or ride w/intox emt driver: No Do you feel safe at home: Yes Do you feel safe in your relationship?: Yes Female Reproductive History Menstrual Menopause type: natural History History 2 Para 2 Hx # Term Pregnancies Multiple births Hx # Pregnancies Ectopic pregnancies AB induced Hx Number of Living Children 2 AB spontaneous
[2023-08-04 16:51] LABS: Abs Immature Grans 0.07 10^3/uL (0.0-0.06); Absolute Basophil Count 0.03 10^3/uL (0.0-0.2); Absolute Lymphocyte Count 1.46 10^3/uL (1.2-3.4); Absolute Monocyte Count 0.86 10^3/uL (0.1-0.8); Basophils % 0.2 %; Eosinophils % 0.9 %; HCT 40.4 % (36.0-46.0); HGB 13.3 g/dL (11.2-15.7); Immature Grans % 0.5 %; Lymphocytes % 9.7 %; MCH 29.5 pg (27.0-33.0); MCHC 32.9 % (32.0-36.0); MCV 90 fL (80-95); MPV 10.9 fL (8.0-11.0); Monocytes % 5.7 %; Platelet Count 185 10^3/uL (130-400); RBC 4.51 10^6/uL (3.93-5.22); RDW 13.7 % (11.7-14.6); RDW-SD 44.7 fL; WBC 15.05 10^3/uL (4.4-10.8)
[2023-08-04 16:52] LABS: Absolute Eosinophil Count 0.14 10^3/uL (0.0-0.7); Absolute Neutrophil Count 12.49 10^3/uL (1.2-6.7)
[2023-08-04 17:06] LABS: ALT 26 U/L (14-59); AST 24 U/L (15-37); Albumin 4.4 g/dL (3.4-5.0); Alkaline Phosphatase 74 U/L (46-116); Anion Gap 7.9 mmol/L (3-11); BUN 15 mg/dL (7-18); CO2 29.1 mmol/L (21.0-32.0); CREATININE 0.8 mg/dL (0.55-1.02); Calcium 10.1 mg/dL (8.5-10.1); Chloride 103 mmol/L (98-107); Estimated GFR 77.27 (mL/min/1.73m2); Glucose 92 mg/dL (74-106); Lipase 36 U/L (16-77); Sodium 140 mmol/L (136-145); Total Protein 8.3 g/dL (6.4-8.2)
[2023-08-04] MEDS: Omnipaque 350 MG/ML 100 ML BTL IJ (17:18)
[2023-08-04] MEDS: Normal Saline - Diluent 50 ML VIAL IJ (17:18)
[2023-08-04 18:24] VITALS: BP 120/60; PULSE 80; RESP 16; TEMP 36.9; O2SAT 98
[2023-08-04] MEDS: Amox. 875/Clav. 125, 2 TABS/BTL 1 TAB PO (18:26)
== END 2023-08-04 18:40 | disposition home or self-care (01) ==
PROVIDERS: Emergency Provider Physician Assistant; PCP Nurse Practitioner Family
DX: K57.10 Diverticulosis of small intestine without perforation or abscess without bleeding (principal); I10 Essential (primary) hypertension; Z87.891 Personal history of nicotine dependence
CPT/HCPCS: 80053; 83690; 99285; 74177; 85025; 99284; J3490

== ENCOUNTER 2023-10-18 14:50 | Emergency (ER) | payer MEDICARE, SELFPAY ==
[2023-10-18 15:01] VITALS: BP 146/78; PULSE 83; RESP 12; TEMP 36.7; O2SAT 97
--- NOTE | 2023-10-18 15:15 | DI.RAD_ITS ---
Exam(s) XR FOOT RT COMPLETE EXAM: XR FOOT RT COMPLETE CLINICAL HISTORY: Fall two weeks ago, eval fx. TECHNIQUE: 2D digital imaging was performed. COMPARISON: No exams were available for comparison FINDINGS: 3 views No evidence of acute fracture or diastasis of the Lisfranc joint. Some generalized osteopenia is not ed in the bones of the foot but no obvious fractures. Some degenerative changes noted in the 1st tar sometatarsal joint. No significant osseous lesions. No radiopaque foreign bodies. No pes planus. No evidence of osteomyelitis. IMPRESSION: No fracture evident. DATA REPOSITORY: RADIATION DOSE DELIVERED:
--- NOTE | 2023-10-18 15:15 | DI.RAD_ITS ---
Exam(s) XR ANKLE RT COMPLETE EXAM: XR ANKLE RT COMPLETE CLINICAL HISTORY: Fall two weeks ago, eval fx. TECHNIQUE: 2D digital imaging was performed. COMPARISON: No exams were available for comparison FINDINGS: 3 views There is soft tissue swelling over the malleoli but no obvious malleolar fractures nor widening of th e ankle mortise. Talar dome unremarkable. No obvious degenerative changes in the tibiotalar joint.. On the lateral view there is a suggestion of a possible subtle fracture in the posterior half the andrey caneus. IMPRESSION: Possible subtle posteriorly located calcaneus fracture. Correlation with site of tenderness is recom mended. If clinically indicated follow-up CT or MRI can be performed for added sensitivity/specifici ty. DATA REPOSITORY: RADIATION DOSE DELIVERED:
--- NOTE | 2023-10-18 15:19 | W.ED.GENAD ---
Discharge Plan Disposition Patient Disposition: Home Condition: Stable Discharge Details Clinical Impression: Calcaneus fracture, right, Primary osteoarthritis of right knee, Hyperlipidemia, Essential hypertension Primary Care Provider: Leanne Berry ED Provider: Lucia Cheung Home Meds and New Rx's Prescriptions: No Action latanoprost 0.005 % drops 1 drp OP QHS multivitamin [Daily Multi-Vitamin] Tablet 1 tab PO DAILY PreserVision AREDS-2 345-682-21-1 gf-andk-su-mg capsule 1 tab PO ONCE Rx Instructions: administer with meals naproxen sodium [Aleve] 220 mg capsule 220 mg PO PRN PRN famotidine [Acid Media Relations Coordinator (famotidine)] 10 mg tablet 10 mg PO QHS PRN diphenhydramine-acetaminophen [Tylenol PM Extra Strength] 25-500 mg tablet 1 tab PO QHS PRN calcium carbonate-vitamin D3 [Calcium with Vitamin D] 600 mg-10 mcg (400 unit) tablet 1 tab PO DAILY simethicone [Gas Relief (simethicone)] 125 mg capsule 125 mg PO QD-BID PRN timolol maleate 0.5 % gel forming solution 1 drp Ophthalmic DAILY losartan 25 mg tablet 25 mg PO DAILY Qty: 90 3RF alendronate 70 mg tablet 70 mg PO QWEEK Qty: 13 3RF Patient Comments: Rx Instructions: Take 1 tablet once a week Bio-K plus 50 billion cell capsule,delayed release(DR/EC) 1 cap PO DAILY Qty: 30 0RF Rx Instructions: finish all Discharge Instructions Instructions: Foot Fracture (DC) Additional Instructions: You were seen in the emergency department today for evaluation of ongoing right foot pain after a fall 2 weeks ago, and had x-rays that showed a possible fracture of your right heel. You likely also some sustained a sprain during this fall. We have placed you in a walking boot which should be utilized whenever you are up and about, but can be taken off for bathing and sleeping. I recommend continuing your Aleve and Tylenol, as well as ice and elevation for the swelling. If you are still having pain you should be reevaluated by orthopedics team in about 1 week, or sooner if you start to have numbness, tingling, fever or chills, or any other symptoms that cause you concern. Thank you for allowing us to be part of your care. Referrals: Tiago Negro MD [ [facility] STAFF PHYSICIAN] - 1 week HPI General Mode of arrival: ambulatory. Date/Time Provider Initiated Documentation: 10/18/23 14:52. Limitations to Documentation: no limitations. Information obtained by: patient and old records reviewed. HPI Narrative: MDM: In brief, this is a 73-year-old female patient with a history of hypertension, osteoarthritis, hyperlipidemia, presenting for evaluation of right foot and ankle pain. My differential includes but is not limited to fracture, dislocation, sprain, ligamentous injury. There is no evidence of my physical examination for neurovascular injury, the patient does not have comorbid evidence of injury to her hip or knee. Reassuringly, the patient is otherwise in her normal state of health and this is an isolated complaint. I will provide the patient with a dose of Tylenol for symptomatic management as well as obtain x-rays of the affected right foot and ankle. ED Course: I independently interpreted the patient's x-ray imaging, and radiology notes a potential nondisplaced calcaneal fracture, as well as soft tissue swelling. I did share these findings with the patient, provided her with a walking boot given her ongoing pain, and recommended weightbearing as tolerated, ice and elevation for swelling, Aleve and Tylenol for symptomatic management of pain, and follow-up with orthopedics if her symptoms persist. At this time, the patient has had a full medical evaluation and is safe for discharge to home. They are hemodynamically stable, ambulatory, and tolerating PO. They are understanding of the follow-up plan and return precautions. They left our facility without incident. Lucia Cheung MD HPI: This is a 73-year-old female patient with a history of hypertension, hyperlipidemia, and osteoarthritis presenting for evaluation of right foot pain. On the of this month the patient reports that she was working on her back deck, kicked/tripped over a heavy rock and fell, landing on her right side. She immediately had pain in her right foot and ankle, states that she landed on the grass on her right side, does think that she struck her head but did not lose consciousness. The patient does not take any blood thinning medications, and has been without headache or neurovascular deficit per her report. She reports that she has been able to bear weight but has been utilizing mobility aids such as a crutch and a cane to get around the home for the last 2 weeks. She has been managing her pain with Aleve and Tylenol to moderate effect, but has noticed some swelling of the lateral ankle as well as bruising of the foot. Initially she thought she just sprained it, and elected to stay home and wait out the symptoms, but given the ongoing symptoms and her concern for the swelling elected to seek care for evaluation today. The patient reports that this is an isolated area of injury, she is not experiencing any other pain or abnormalities from her baseline. Last dose of medication was Aleve at 8 AM. Exam: Gen: Awake and alert, in no apparent distress HEENT: Non-icteric sclera Neck: Supple Lungs: No apparent respiratory distress, normal respiratory effort. CV: Appears well perfused Abdomen: Non-distended MSK: Moves 4 extremities without apparent limitation in ROM. The patient has no tenderness to palpation of the pelvis, affected right knee, and no tenderness or deformity over the proximal fibula area. The patient does have swelling of the lateral malleolus of the right ankle but full range of motion of the ankle and foot. She has no tenderness to palpation over the midfoot or plantar fascia, has bruising appreciated at the base of toes 2 through 5 on the right foot. She has a strong DP pulse and full sensation and motor function of the affected right foot. Skin: Visualized skin without rashes, cyanosis. Neuro: Normal Gait, no obvious focal deficits or facial asymmetry. Speaks in full, clear sentences. Psych: Appropriate for situation. Related Data Home Medications ?Medication ?Instructions ?Recorded ?Confirmed multivitamin (Daily Multi-Vitamin 1 tab PO DAILY 12/13/19 10/18/23 tablet) naproxen sodium 220 mg capsule 220 mg PO PRN PRN 12/13/19 10/18/23 (Aleve) vit C 250 mg-vit E 90 mg-zinc 40 1 tab PO ONCE 12/13/19 10/18/23 mg-copper 1 jp-jhtrph-kknvyp capsule (PreserVision AREDS-2) L. acidophilus,casei,rhamnosus 50 1 cap PO DAILY #30 caps 10/03/20 10/18/23 billion cell capsule,delayed release (Bio-K plus) calcium carbonate 600 mg-vitamin 1 tab PO DAILY 03/16/21 10/18/23 D3 10 mcg (400 unit) tablet (Calcium with Vitamin D) diphenhydramine 25 1 tab PO QHS PRN 03/16/21 10/18/23 mg-acetaminophen 500 mg tablet (Tylenol PM Extra Strength) simethicone 125 mg capsule (Gas 125 mg PO QD-BID PRN 03/16/21 10/18/23 Relief (simethicone)) latanoprost 0.005 % eye drops 1 drp ophthalmic (eye) QHS 05/10/22 10/18/23 timolol maleate 0.5 % eye gel 1 drp ophthalmic (eye) DAILY 05/10/22 10/18/23 forming solution losartan 25 mg tablet 25 mg PO DAILY #90 tabs 02/21/23 10/18/23 alendronate 70 mg tablet 70 mg PO QWEEK #13 tabs 04/25/23 10/18/23 famotidine 10 mg tablet (Acid 10 mg PO QHS PRN 05/12/23 10/18/23 Media Relations Coordinator (famotidine)) Previous Rx's ?Medication ?Instructions ?Recorded L. acidophilus,casei,rhamnosus 50 1 cap PO DAILY #30 caps 10/03/20 billion cell capsule,delayed release (Bio-K plus) losartan 25 mg tablet 25 mg PO DAILY #90 tabs 02/21/23 alendronate 70 mg tablet 70 mg PO QWEEK #13 tabs 04/25/23 Allergies Allergy/AdvReac Type Severity Reaction Status Date / Time ciprofloxacin Allergy Severe effects Verified 10/18/23 15:05 my tendons, causes pain in legs. lisinopril AdvReac Mild Cough Verified 10/18/23 15:05 General Stated Complaint: Orthopedic AVELINA: 4 Course Vital Signs Vital signs: Vital Signs Temperature 36.7 C 10/18/23 15:01 Pulse 83 10/18/23 15:01 Respiratory Rate 12 10/18/23 15:01 Blood Pressure 146/78 H 10/18/23 15:01 Pulse Oximetry 97 10/18/23 15:01 Temperature 36.7 C 10/18/23 15:01 Temperature Source Oral 10/18/23 15:01 Pulse 83 10/18/23 15:01 Respiratory Rate 12 10/18/23 15:01 Blood Pressure 146/78 H 10/18/23 15:01 Blood Pressure Position Sitting 10/18/23 15:01 Pulse Oximetry 97 10/18/23 15:01 Oxygen Delivery Method Room Air 10/18/23 15:01 Oxygen Flow Rate 0 10/18/23 15:01 Pain Level 9 10/18/23 15:01 Medical Decision Making Quality:SDOH Health Related Social Needs: Health related social needs personal safety Health related social needs details none PFSH All Active Problems (Updated 10/18/23 @ 16:27 by Lucia Cheung MD) Calcaneus fracture, right (Acute) Hyperlipidemia (Chronic) Osteoporosis (Chronic) Dexa 01/2019. Fosamax started 01/2020 Essential hypertension (Chronic) GERD with esophagitis (Chronic) Glaucoma of right eye (Chronic) Primary osteoarthritis of right knee (Chronic) Sigmoid diverticulosis (Chronic) Medical History (Updated 10/18/23 @ 16:27 by Lucia Cheung MD) Right optic neuritis Negative MRI Diverticulitis of jejunum Surgical History S/P colonoscopy (01/19/13) History of esophagogastroduodenoscopy (EGD) (01/19/13) History of bilateral tubal ligation (~12/1978) S/P excision of lipoma (~2002) of left medial thigh Family History Mother , at 91 Depression Hyperlipidemia Breast cancer x 2; in her 40s Stroke Hypertension Father No problems noted. Son No problems noted. Son No problems noted. Maternal Grandfather , in his 70s of [place] Myocardial infarction Hyperlipidemia Maternal Grandmother Hyperlipidemia Heart disease Hypertension Cancer Doesn't know which type Paternal Grandfather No problems noted. Paternal Grandmother No problems noted. Social History Smoking/Tobacco Use Status: Former Tobacco Use tobacco type: cigarettes Quit Date: 02/14/74 Tobacco: How many years used: 4 Second Hand Exposure: No Smoking risk assessment performed?: Yes Alcohol Intake: current Alcohol Intake frequency: holidays/special occasions only Alcohol type: beer Drug use: Never Substance use type: does not use Details: Pt reports using CBD gummies Last took Tuesday02/27/23 Household members: spouse Housing: house Pets and animals: No Sexually active: Yes Current gender identity: female What is your relationship status?: How often do you talk on the phone with friends or family?: decline to answer How often do you get together with friends or relatives?: decline to answer How often do you attend jain or yarsanism services?: decline to answer Do you belong to any clubs or organized social groups?: decline to answer Panel score (0-1 are the most socially isolated patients): 1 Duration: 15-30 minutes/day Frequency: 3-4 times per week Dinora/Denominational: Restorationism Special dinora needs: No Seatbelt use: always Drive intox or ride w/intox driver medic: No Do you feel safe at home: Yes Do you feel safe in your relationship?: Yes Female Reproductive History Menstrual Menopause type: natural History History 2 Para 2 Hx # Term Pregnancies Multiple births Hx # Pregnancies Ectopic pregnancies AB induced Hx Number of Living Children 2 AB spontaneous
[2023-10-18] MEDS: Acetaminophen 325 MG TAB 650 MG PO (15:27)
[2023-10-18 16:45] VITALS: BP 139/62; PULSE 75; RESP 17; TEMP 37; O2SAT 96
--- NOTE | 2023-12-08 12:32 | NUR.NOTE ---
Accessed Pt chart to Print Dr Note for the [facility] [employer]
== END 2023-10-18 16:47 | disposition home or self-care (01) ==
PROVIDERS: Emergency Provider Emergency Medicine; PCP Nurse Practitioner Family
DX: S92.014A Nondisplaced fracture of body of right calcaneus, initial encounter for closed fracture (principal); W17.89XA Other fall from one level to another, initial encounter
CPT/HCPCS: 28400; 99283; 73610; 73630

== ENCOUNTER 2023-10-25 15:28 | Outpatient (CLI) | payer MEDICARE, SELFPAY ==
--- NOTE | 2023-10-25 15:52 | DI.RAD_ITS ---
Exam(s) XR ANKLE RT COMPLETE EXAM: XR ANKLE RT COMPLETE CLINICAL HISTORY: f/u right ankle injury. TECHNIQUE: 2D digital imaging was performed. Three views. COMPARISON: CR XR ANKLE RT COMPLETE from 10/18/2023 FINDINGS: BONES: No change in alignment of posterior calcaneal fracture. No bony destructive lesion is seen. JOINTS: The ankle mortise is normally aligned. SOFT TISSUE: Swelling IMPRESSION: Stable alignment of fracture of the posterior calcaneus. DATA REPOSITORY: RADIATION DOSE DELIVERED:
== END 2023-10-25 15:29 | disposition home or self-care (01) ==
LOC: DIORS 15:29
PROVIDERS: PCP Nurse Practitioner Family; Visit Provider Student in an Organized Health Care Education/Training Program
DX: S92.001A Unspecified fracture of right calcaneus, initial encounter for closed fracture (principal); W10.9XXA Fall (on) (from) unspecified stairs and steps, initial encounter
CPT/HCPCS: 99213; 73610

== ENCOUNTER 2023-12-06 15:28 | Outpatient (CLI) | payer MEDICARE, SELFPAY ==
--- NOTE | 2023-12-06 11:00 | DI.RAD_ITS ---
Exam(s) XR FOOT RT COMPLETE EXAM: XR FOOT RT COMPLETE CLINICAL HISTORY: F/U FRACTURE. TECHNIQUE: 2D digital imaging was performed. COMPARISON: CR XR FOOT RT COMPLETE from 10/18/2023 FINDINGS: 3 views No evidence of acute fracture or diastasis of the Lisfranc joint. Great toe metatarsophalangeal join t appears unremarkable. Some degenerative change is again noted in the 1st and 3rd tarsometatarsal j oints. No pes planus. No inferior calcaneal spur. IMPRESSION: As above but no acute osseous findings nor significant change compared to images of 10/18/2023. DATA REPOSITORY: RADIATION DOSE DELIVERED:
== END 2023-12-06 15:29 | disposition home or self-care (01) ==
LOC: DIORS 15:28
PROVIDERS: PCP Nurse Practitioner Family; Referring Provider Nurse Practitioner Family; Visit Provider Student in an Organized Health Care Education/Training Program
DX: S92.001D Unspecified fracture of right calcaneus, subsequent encounter for fracture with routine healing (principal); X58.XXXD Exposure to other specified factors, subsequent encounter
CPT/HCPCS: 99213; 73630

== ENCOUNTER 2024-01-31 15:50 | Outpatient (CLI) | payer MEDICARE, SELFPAY ==
--- NOTE | 2024-01-31 10:45 | DI.RAD_ITS ---
Exam(s) XR FOOT RT COMPLETE EXAM: XR FOOT RT COMPLETE CLINICAL HISTORY: F/U FRACTURE. TECHNIQUE: 2D digital imaging was performed of the right foot. Three images were obtained. AP, obl ique and lateral views were obtained. COMPARISON: CR XR ANKLE RT COMPLETE from 10/18/2023 CR XR FOOT RT COMPLETE from 10/18/2023 CR XR ANKLE RT COMPLETE from 10/25/2023 CR XR FOOT RT COMPLETE from 12/06/2023 FINDINGS: BONES: There has been continued healing of the fracture involving the posterior process of the calcan eus. There is also subtle increased sclerosis involving the lateral aspect of the cuboid which may r epresent a healing nondisplaced cuboid fracture. No bony destructive lesion is seen. JOINTS: No dislocation present. SOFT TISSUE: Normal. IMPRESSION: Continued healing of the fracture involving the posterior process of the calcaneus. Question of a he aling fracture involving the lateral aspect of the cuboid bone. DATA REPOSITORY: RADIATION DOSE DELIVERED:
== END 2024-01-31 15:51 | disposition home or self-care (01) ==
LOC: DIORS 15:51
PROVIDERS: PCP Nurse Practitioner Family; Referring Provider Nurse Practitioner Family; Visit Provider Student in an Organized Health Care Education/Training Program
DX: S92.014D Nondisplaced fracture of body of right calcaneus, subsequent encounter for fracture with routine healing (principal); X58.XXXD Exposure to other specified factors, subsequent encounter
CPT/HCPCS: 99213; 73630

== ENCOUNTER 2024-02-23 03:51 | Outpatient (CLI) | payer MEDICARE, SELFPAY ==
--- NOTE | 2024-02-23 07:45 | DI.RAD_ITS ---
Exam(s) XR HIP LT COMPLETE AP PELVIS EXAM: XR HIP LT COMPLETE AP PELVIS CLINICAL HISTORY: left hip pain,m25.552. TECHNIQUE: 2D digital imaging was performed of the left hip. Two views were obtained. AP pelvis an d lateral left hip views were obtained. COMPARISON: No exams were available for comparison FINDINGS: BONES: No acute fracture is present. No bony destructive lesion is seen. JOINTS: No dislocation present. In the left hip, there is marked narrowing of the superior joint spac e. Osteophytes are seen particularly at the femoral head. There is subchondral sclerosis also prese nt. In the right hip, there is joint space narrowing, subchondral sclerosis and osteophytes. SOFT TISSUE: Atherosclerotic calcification is present. IMPRESSION: Marked bilateral osteoarthritis of the hips. Unremarkable radiographs of the pelvis DATA REPOSITORY: RADIATION DOSE DELIVERED:
== END 2024-02-23 04:11 ==
LOC: DI 03:51
PROVIDERS: PCP Nurse Practitioner Family; Visit Provider Nurse Practitioner Family
DX: M25.552 Pain in left hip (principal)
CPT/HCPCS: 73502

== ENCOUNTER → 2024-04-02 12:54 | Outpatient (BNVA) | payer MEDICARE, SELFPAY | PROVIDERS: PCP Nurse Practitioner Family; Referring Provider Nurse Practitioner Family; Visit Provider Student in an Organized Health Care Education/Training Program | DX: M16.12 Unilateral primary osteoarthritis, left hip (principal); M16.11 Unilateral primary osteoarthritis, right hip | CPT/HCPCS: 99213 ==

== ENCOUNTER 2024-06-12 00:11 | Outpatient (CLI) | payer MEDICARE, SELFPAY ==
--- NOTE | 2024-06-12 12:30 | DI.US_ITS ---
APPROVED REPORT EXAM: Comprehensive 2D, Doppler, and color-flow Echocardiogram Patient Location: Out-Patient Electronics Repair Technician: Haja Seymour RDCS (AE) Indications: Murmur Other Information Study Quality: Adequate Conclusion Normal left ventricular wall thickness and chamber size. Ejection fraction is 60 to 65%. Wall motio n is normal Normal right ventricular size and function Both atria are normal in size. Incidental finding of an atrial septal aneurysm Aortic valve is mildly sclerotic and trileaflet without stenosis or regurgitation There is no additional significant valvular disease Wall motion Left Ventricle The left ventricle is normal size. The left ventricular systolic function is normal. The left ventric ular ejection fraction is within the normal range. There is normal left ventricular wall thickness. S igmoid septum is present. There is normal LV segmental wall motion. There is no ventricular septal de fect visualized. LVEF is 60-65%. Right Ventricle The right ventricle is normal size. The right ventricular systolic function is normal. Atria The left atrium size is normal. The right atrium size is normal. Atrial septal aneurysm is present wi thout PFO. Aortic Valve The aortic valve is mildly sclerotic. Aortic valve is trileaflet. There is no aortic valvular stenosi s. No aortic regurgitation is present. Mitral Valve The mitral valve is normal in structure. No evidence of mitral valve stenosis. There is no mitral dahiana ve regurgitation noted. Tricuspid Valve The tricuspid valve is normal in structure. There is no tricuspid valve stenosis. Trace tricuspid reg urgitation. The RVSP is 44 mmHg. Pulmonic Valve The pulmonary valve is normal in structure. There is no pulmonic valvular stenosis. Mild pulmonic reg urgitation. Great Vessels The aortic root is normal in size. The ascending aorta is normal Aortic arch is normal in caliber. IV C is normal in size and collapses >50% with inspiration. Pericardium There is no pericardial effusion. 2D Dimensions IVSD d PLAX 0.74 cm F: 0.6-1.0 Ao Root d 2.84 cm F: 2.7 - 3.3 LVPW d PLAX 0.72 cm F: 0.6 - 1.0 Ao Asc Diam d 3.30 cm F: 2.3 - 3.1 LVID d PLAX 3.94 cm F: 3.8 - 5.2 LVDs 2.57 cm F: 2.2 - 3.5 LV EF Teichholz 64.5 % FS 34.74 % LV EDV (Teich) 67.6 mL LV ESV (Teich) 24.0 mL Stroke Vol Index (Teich) 28.69 M-Mode TAPSE 2.28 cm (M/F) >1.7 Auto EF LV EDV A4C 60.1 mL LV EDV A2C 66.8 mL LV EDV BP 63.3 mL LV ESV A4C 23.3 mL LV ESV A2C 24.6 mL LV ESV BP 23.8 mL LVEF(%) A4C 61.2 % LVEF(%) A2C 63.2 % LVEF(%) BP 62.4 % LV SV A4C 36.8 ml LV SV A2C 42.3 ml LV SV BP 39.5 ml LV CO A4C 2.5 L/min LV CO A2C 2.9 L/min LV CO BP 2.7 L/min HR A4C 67.54 BPM HR A2C 68.68 BPM LV EDV Index (BP) LA Volume LA Length A4C 3.7 cm LA Length A2C 5.1 cm LA Area A4C s 8.76 cm2 LA Area A2C s 10.88 cm2 LA Vol A4C A-L 17.49 mL LA Vol A2C A-L 19.90 mL LA Vol Biplane A-L 21.7 mL LA Vol/BSA A4C A-L LA Vol/BSA A2C A-L LA Vol/BSA BP A-L 14.3 mL/m2 LA Vol A4C MOD 17.2 mL LA Vol A2C MOD 18.5 mL LA Vol BP MOD 20.2 mL RA Volume RA Area A4C 4.4 cm2 RA ESV A4C (A-L) 6.1mL RA Vol/BSA A4C A-L RA Length A4C 2.7 cm RA ESV A4C (MOD) 5.8mL LV Diastology MV E' medial 0.079 (>0.07 m/s) MV E Vmax 0.66 (0.4-1.3 m/s) MV E/E' MED 8.38 (<14) MV A Vmax 0.80 (0.4-1.3 m/s) MV E' lateral 0.113 (>0.1 m/s) E/A Ratio 0.8 MV E/E' LAT 5.83 (<14) MV E' Average 0.096 m/s MV E/E'(average) 6.87 Aortic Valve AoV Vmax 1.43 m/s LVOT Vmax 1.14 m/s AoV Peak Grad 8.2 mmHg LVOT Peak Grad 5.2 mmHg AoV Area (Vmax) 2.33 cm2 LVOT VTI 0.273 m AoV VTI 0.303 m LVOT Mean Grad 2.7 mmHg AoV Mean Aleksey. 0.97 m/s LVOT SV 79.73 mL AoV Mean Grad 4.3 mmHg LVOT Diam s 1.90 cm AoV Area (VTI) 2.63 cm2 AV Regurg Peak Gr. 8.23 mmHg Velocity Ratio 0.80 Mitral Valve MV DT 254 (160-240 msec) Pulmonary Valve PV Vmax 0.90 (0.5-1.5 m/s) RVOT Vmax 0.87 m/s PV Peak Grad 3.3 mmHg RVOT Peak Gr. 3.0 mmHg PV Mean Aleksey 0.63 m/s RVOT VTI 0.202 m PV Mean Grad 1.8 mmHg RVOT Mean Gr. 1.7 mmHg Tricuspid Valve RA Pressure 3.00 mmHg TR Vmax 3.21 m/s TV S' 0.14 m/s TR Peak Grad 41.0 mmHg RVSP (TR) 44.1 mmHg
== END 2024-06-12 00:31 ==
LOC: DI 00:11
PROVIDERS: PCP Nurse Practitioner Family; Visit Provider Internal Medicine Cardiovascular Disease
DX: R01.1 Cardiac murmur, unspecified (principal)
CPT/HCPCS: 93306

== ENCOUNTER 2024-07-02 03:15 | Outpatient (CLI) | payer MEDICARE, SELFPAY ==
[2024-07-02 07:35] LABS: HCT 41.6 % (36.0-46.0); HGB 13.8 g/dL (11.2-15.7); MCH 29.4 pg (27.0-33.0); MCHC 33.2 % (32.0-36.0); MCV 89 fL (80-95); MPV 10.9 fL (8.0-11.0); Platelet Count 184 10^3/uL (130-400); RBC 4.69 10^6/uL (3.93-5.22); RDW 13.7 % (11.7-14.6); RDW-SD 44.2 fL; WBC 8.25 10^3/uL (4.4-10.8)
[2024-07-02 07:53] LABS: Hemoglobin A1C 5.5 % (<5.7)
[2024-07-02 08:12] LABS: Anion Gap 7.2 mmol/L (3-11); BUN 16 mg/dL (7-18); CO2 30.8 mmol/L (21.0-32.0); CREATININE 0.7 mg/dL (0.55-1.02); Calcium 9.6 mg/dL (8.5-10.1); Calculated LDL 149 mg/dL (<100); Chloride 101 mmol/L (98-107); Cholesterol 239 mg/dL (<200); Estimated GFR 90.14 (mL/min/1.73m2); Glucose 92 mg/dL (74-106); HDL Cholesterol 54 mg/dL (>or=50); Potassium 3.5 mmol/L (3.5-5.1); Sodium 139 mmol/L (136-145); TSH (W/Ref FT4) 3.08 uIU/mL (0.36-3.74); Triglyceride 183 mg/dL (<150)
[2024-07-02 09:01] LABS: Vitamin D 25 Total 35 ng/mL (30-100)
[2024-07-03 09:48] LABS: HIV-1/2 Ag & Ab Screen Negative (Negative)
[2024-07-03 10:16] LABS: HBs Antibody, Quant <3.1 mIU/mL (See Note); Hep B Surface Ab Negative (See Note); Hepatitis B Core Antibody Negative (Negative); Hepatitis B Surface Antigen Negative (Negative)
== END 2024-07-02 03:16 | disposition home or self-care (01) ==
PROVIDERS: PCP Nurse Practitioner Family; Visit Provider Student in an Organized Health Care Education/Training Program
DX: M16.12 Unilateral primary osteoarthritis, left hip (principal); Z01.818 Encounter for other preprocedural examination; R73.01 Impaired fasting glucose; E78.5 Hyperlipidemia, unspecified; M81.0 Age-related osteoporosis without current pathological fracture; Z11.59 Encounter for screening for other viral diseases; Z11.4 Encounter for screening for human immunodeficiency virus [HIV]
CPT/HCPCS: 36415; 80048; 80061; 82306; 85027; 86704; 86706; 87340; 87389; 83036; 84443

== ENCOUNTER 2024-07-02 11:06 | Outpatient (CLI) | payer MEDICARE, SELFPAY ==
--- NOTE | 2024-07-02 10:00 | DI.RAD_ITS ---
Exam(s) XR PELVIS AP EXAM: XR PELVIS AP CLINICAL HISTORY: PRE OP L YAMILET. TECHNIQUE: 2D digital imaging was performed. Single AP view. COMPARISON: CR XR HIP LT COMPLETE AP PELVIS from 02/23/2024 FINDINGS: BONES: No acute fracture is present. No bony destructive lesion is seen. JOINTS: There is severe narrowing of left hip joint space. There is moderate to severe narrowing of the right hip joint space. There is prominent periarticular spurring bilaterally, greater at the ma rgins of the femoral heads bilaterally. There also degenerative changes of the lower SI joints. SOFT TISSUE: Normal. IMPRESSION: Advanced degenerative changes of both hips. DATA REPOSITORY: RADIATION DOSE DELIVERED:
== END 2024-07-02 11:07 | disposition home or self-care (01) ==
LOC: DIORS 11:07
PROVIDERS: PCP Nurse Practitioner Family; Referring Provider Nurse Practitioner Family; Visit Provider Physician Assistant
DX: M16.12 Unilateral primary osteoarthritis, left hip (principal); Z01.818 Encounter for other preprocedural examination
CPT/HCPCS: 99214; 36415; 80048; 80061; 82306; 85027; 86704; 86706; 87340; 87389; 72170; 83036; 84443

== ENCOUNTER 2024-07-17 09:45 | Day surgery (SDC) | payer MEDICARE, SELFPAY ==
[2024-07-17] VITALS (34 sets, daily range): BP systolic 94–158; BP diastolic 42–102; PULSE 60–94; RESP 11–24; TEMP 36.4–36.8; O2SAT 94–100; BMI 21.1
--- NOTE | 2024-07-17 07:24 | W.PM.DSUDISC ---
Date of service: 07/17/24 Discharge Plan Disposition Patient Disposition: Home Condition: Good Discharge Details Reason For Visit: left hip DJD Attending Provider: Tiago Negro Primary Care Provider: Leanne Berry Home Meds and New Rx's Prescriptions: New celecoxib [Celebrex] 200 mg capsule 200 mg PO BID PRNQty: 60 0RF Rx Instructions: Take one tablet twice daily for pain and inflammation aspirin 81 mg tablet,delayed release (DR/EC) 81 mg PO BID 30 Days Qty: 60 0RF acetaminophen 500 mg tablet 1,000 mg PO Q8H PRN Qty: 90 0RF Rx Instructions: Take two tablets up to every 8 hours as needed for pain pantoprazole 40 mg tablet,delayed release (DR/EC) 40 mg PO DAILY Qty: 14 0RF dexamethasone 4 mg tablet 4 mg PO DAILY Qty: 2 0RF Rx Instructions: Take one tablet once daily for two days docusate sodium [Colace] 100 mg capsule 100 mg PO BID Qty: 28 0RF oxycodone 5 mg tablet 5 mg PO Q6H PRNQty: 12 0RF Rx Instructions: Take one tablet up to every 6 hours as needed for severe postoperative pain Continued latanoprost 0.005 % drops 1 drp OP QHS multivitamin [Daily Multi-Vitamin] Tablet 1 tab PO DAILY PreserVision AREDS-2 [id number] hr-evgo-mt-mg capsule 1 tab PO ONCE Rx Instructions: administer with meals famotidine [Acid Machine Ii Coremaker (famotidine)] 10 mg tablet 10 mg PO QHS PRN diphenhydramine-acetaminophen [Tylenol PM Extra Strength] 25-500 mg tablet 1 tab PO QHS PRN simethicone [Gas Relief (simethicone)] 125 mg capsule 125 mg PO QD-BID PRN cholecalciferol (vitamin D3) 25 mcg (1,000 unit) capsule 25 mcg PO DAILY timolol maleate 0.5 % gel forming solution 1 drp Ophthalmic DAILY losartan 25 mg tablet 25 mg PO DAILY Qty: 90 3RF alendronate 70 mg tablet 70 mg PO QWEEK Qty: 13 3RF Patient Comments: Rx Instructions: Take 1 tablet once a week Bio-K plus 50 billion cell capsule,delayed release(DR/EC) 1 cap PO DAILY Qty: 30 0RF Rx Instructions: finish all Discontinued acetaminophen [Tylenol] 325 mg tablet 650 mg PO ONCE PRN naproxen sodium [Aleve] 220 mg capsule 220 mg PO PRN PRN Discharge Instructions Additional Instructions: Total Hip Discharge Instructions Activity: The most important activity is to walk. You should try to take short walks a few times a day. You have no restrictions on movement or positioning, but do not try to force what you do. You will find some stiffness and weakness with hip flexion (lifting your knee). Do not try to strengthen this too early, continue to practice walking and stairs and this will come. - Outpatient physical therapy can be helpful to help return you to a normal gait and improve your flexibility and strength. This can start around 2 weeks. For some patients, it?s not necessary. Usually this is determined at the time of discharge or at the first post-operative visit. - You should wear the ANDRÉS hose on both legs for 2 weeks. Dressing: Keep the surgical dressing in place for at least one week. After the first week it may be removed and replace with light gauze and tape or nothing. It may get wet after 3 days but avoid soaking the dressing. If it gets wet, just lightly pat dry. It is important to always keep some gauze between skin folds, especially when you are sitting. Spend some time with the wound exposed when you are lying flat as the incision does wrinkle onto itself. Medications: - You should take Tylenol and an anti-inflammatory Celebrex as your primary pain control medications. If the Celebrex is too expensive or not covered, please call the office for another alternative (Advil/Ibuprofen or Naproxen/Aleve). - You have been prescribed a stronger pain medication Oxycodone for breakthrough pain, take as needed as prescribed. - You have also been prescribed a stomach acid reduction agent Pantoprozole to help reduce stomach acid and reflux. - You have also been prescribed Decadron to help with post-operative nausea and pain. You will take this for two days starting tomorrow. - You will be taking Aspirin 81mg twice a day for DVT prevention unless instructed otherwise. - If you have constipation you should take Colace (which has been prescribed) or Miralax (which is available [id number]). It takes most people 3-4 days to have a bowel movement. Follow-up: 2 weeks If you have any acute concerns or questions, please do not hesitate to contact the office at [phone]. You may contact Dr. Negro with any questions after hours through the hospital at [phone] or on his cell phone at [phone]. Stand Alone Forms: Anesthesia Discharge Inst., Sheyla Chow (U) Referrals: Tiago Negro MD [ [facility] STAFF PHYSICIAN] - 07/30/24 11:00 am Equipment/Supplies: Walker Activity:: Elevate Remove Dressings/Wound Care:: Do Not Remove Shower/Bathe:: Cover Diet:: As Tolerated Discharge Orders Discharge Orders: Discharge Order (Routine); Ordered 07/17/24 Ordered By: Jenni Salazar
[2024-07-17] MEDS: Acetaminophen 500 MG TAB 1000 MG PO (10:37)
[2024-07-17] MEDS: Celecoxib 200 MG CAP 400 MG PO (10:37)
--- NOTE | 2024-07-17 10:48 | W.ANESPRE ---
General Info Date of Service Date Performed: 07/17/24 Height: 5 ft 2.75 in Weight: 53.6 kg Body Mass Index (BMI): 21.1 Surgical Procedure: Operation Date: 07/17/24 12:35 Proposed Procedure Side Surgeon p Hip Total Hip Anterior, Corail Left Tiago Negro MD Meds Allergies and Home Medications Allergies Allergy/AdvReac Type Severity Reaction Status Date / Time ciprofloxacin Allergy Severe effects Verified 07/17/24 10:36 my tendons, causes pain in legs. lisinopril AdvReac Mild Cough Verified 07/17/24 10:36 Home Medication ?Medication ?Instructions ?Recorded multivitamin (Daily Multi-Vitamin 1 tab PO DAILY 12/13/19 tablet) vit C 250 mg-vit E 90 mg-zinc 40 1 tab PO ONCE 12/13/19 mg-copper 1 [id number] capsule (PreserVision AREDS-2) L. acidophilus,casei,rhamnosus 50 1 cap PO DAILY #30 caps 10/03/20 billion cell capsule,delayed release (Bio-K plus) diphenhydramine 25 1 tab PO QHS PRN 03/16/21 mg-acetaminophen 500 mg tablet (Tylenol PM Extra Strength) simethicone 125 mg capsule (Gas 125 mg PO QD-BID PRN 03/16/21 Relief (simethicone)) latanoprost 0.005 % eye drops 1 drp ophthalmic (eye) QHS 05/10/22 timolol maleate 0.5 % eye gel 1 drp ophthalmic (eye) DAILY 05/10/22 forming solution famotidine 10 mg tablet (Acid 10 mg PO QHS PRN 05/12/23 Dental Service Chief (famotidine)) cholecalciferol (vitamin D3) 25 25 mcg PO DAILY 12/06/23 mcg (1,000 unit) capsule losartan 25 mg tablet 25 mg PO DAILY #90 tabs 12/14/23 alendronate 70 mg tablet 70 mg PO QWEEK #13 tabs 01/26/24 acetaminophen 500 mg tablet 1,000 mg (2 x 500 mg) PO Q8H PRN 07/17/24 pain #90 tabs aspirin 81 mg tablet,delayed 81 mg PO BID 30 days #60 tabs 07/17/24 release celecoxib 200 mg capsule (Celebrex) 200 mg PO BID PRN #60 caps 07/17/24 dexamethasone 4 mg tablet 4 mg PO DAILY #2 tabs 07/17/24 docusate sodium 100 mg capsule 100 mg PO BID #28 caps 07/17/24 (Colace) oxycodone 5 mg tablet 5 mg PO Q6H PRN #12 tabs 07/17/24 pantoprazole 40 mg tablet,delayed 40 mg PO DAILY #14 tabs 07/17/24 release Current Visit Medications: Current Medications Generic Name Dose Route Start Last Admin Trade Name Terri PRN Reason Stop Dose Admin Acetaminophen 1,000 mg 07/17/24 06:00 07/17/24 10:37 Acetaminophen 500 Mg Tab PO 07/17/24 23:59 1,000 mg PREOP SANTI Administration Celecoxib 400 mg 07/17/24 06:00 07/17/24 10:37 Celecoxib 200 Mg Cap PO 07/17/24 23:59 400 mg PREOP SANTI Administration Hydromorphone HCl 0.5 mg 07/17/24 07:20 Hydromorphone 2 Mg/Ml Syr IVP 08/16/24 07:19 Q2H PRN PRN Ringer's Solution 1,000 mls @ 80 mls/hr 07/17/24 06:00 IV 07/17/24 23:59 INFUSION SANTI Cefazolin Sodium/Dextrose 2 gm in 50 mls @ 100 mls/hr 07/17/24 06:00 Ancef Duplex IVPB 07/17/24 23:59 PREOP SANTI Tranexamic Acid/Sodium Chloride 1,000 mg in 100 mls @ 600 mls/hr 07/17/24 06:00 IVPB 07/17/24 23:59 PREOP SANTI Cefazolin Sodium/Dextrose 1 gm in 50 mls @ 100 mls/hr 07/17/24 08:00 Ancef Duplex IVPB 07/18/24 00:29 Q8H SANTI IV Miscellaneous Supplies 1 each 07/17/24 06:00 Iv Access IV 07/17/24 23:59 DIRECTED SANTI Oxycodone HCl 0 mg 07/17/24 07:20 Oxycodone 5 Mg Tab PO 08/16/24 07:19 Q3H PRN PRN Pain Sodium Chloride 0 ml 07/17/24 06:00 Normal Saline Flush 10 Ml Syr IV 07/17/24 23:59 PRN PRN Sodium Chloride 0 ml 07/17/24 06:00 Normal Saline 10 Ml Vial IJ 07/17/24 23:59 DIRECTED PRN Sterile Water 0 ml 07/17/24 06:00 Water,Injection,Sterile 10 Ml Vial IJ 07/17/24 23:59 DIRECTED PRN Tranexamic Acid 1,300 mg 07/17/24 07:20 Tranexamic Acid 650 Mg Tab PO 08/16/24 07:19 ONCE PRN postoperative PFSH Active Problems Active Problems: Problem Status Onset Code History of total left hip arthroplasty Acute 07/17/24 Z96.642 Hyperlipidemia Chronic E78.5 Osteoporosis Chronic M81.0 Essential hypertension Chronic I10 GERD with esophagitis Chronic K21.0 Glaucoma of right eye Chronic H40.9 Primary osteoarthritis of right knee Chronic M17.11 Sigmoid diverticulosis Chronic K57.30 Medical History Medical History Right optic neuritis Negative MRI Diverticulitis of jejunum (~07/2023) Surgical History Surgical History S/P colonoscopy (01/19/13) History of esophagogastroduodenoscopy (EGD) (01/19/13) History of bilateral tubal ligation (~12/1978) S/P excision of lipoma (~2002) of left medial thigh Tobacco Smoking/Tobacco Use Status: Former Tobacco Use Passive smoking exposure: No Second hand exposure: No Alcohol Alcohol Intake: current Alcohol intake frequency: holidays/special occasions only Alcohol type: beer Substance Use Substance use: Never Substance use type: does not use Prental History History 2 Para 2 Hx # Term Pregnancies Multiple births Hx # Pregnancies Ectopic pregnancies AB induced Hx Number of Living Children 2 AB spontaneous Vital Signs and Lab Results Vital Signs Most Recent Vital Signs in EMR: Most Recent Vital Signs Temp Pulse Resp BP Pulse Ox 36.4 C L 66 16 158/87 H 98 07/17/24 10:29 07/17/24 10:29 07/17/24 10:29 07/17/24 10:29 07/17/24 10:29 Lab Results Blood Type / Crossmatch: No Data to Display Complete Blood Count: White Blood Count 8.25 10^3/uL (4.4-10.8) 07/02/24 07:19 Red Blood Count 4.69 10^6/uL (3.93-5.22) 07/02/24 07:19 Hemoglobin 13.8 g/dL (11.2-15.7) 07/02/24 07:19 Hematocrit 41.6 % (36.0-46.0) 07/02/24 07:19 Platelet Count 184 10^3/uL (130-400) 07/02/24 07:19 Complete Metabolic Panel: Sodium 139 mmol/L (136-145) 07/02/24 07:19 Potassium 3.5 mmol/L (3.5-5.1) 07/02/24 07:19 Chloride 101 mmol/L (98-107) 07/02/24 07:19 Carbon Dioxide 30.8 mmol/L (21.0-32.0) 07/02/24 07:19 BUN 16 mg/dL (7-18) 07/02/24 07:19 Creatinine 0.7 mg/dL (0.55-1.02) 07/02/24 07:19 Est GFR (CKD-EPI 2020) 90.14 (mL/min/1.73m2) 07/02/24 07:19 Calcium 9.6 mg/dL (8.5-10.1) 07/02/24 07:19 Glucose 92 mg/dL (74-106) 07/02/24 07:19 Hemoglobin A1c 5.5 % (<5.7) 07/02/24 07:19 Liver Function Panel: No Data to Display Coagulation Panel: No Data to Display Cardiac Panel: No Data to Display Arterial Blood Gas: No Data to Display Venous Blood Gas: No Data to Display Pancreas Panel: No Data to Display Thyroid Panel: Thyroid Stimulating Hormone (TSH) 3.08 uIU/mL (0.36-3.74) 07/02/24 07:19 Infectious Disease: HIV (1&2) Ag and Ab, 4th Generation Negative (Negative) 07/02/24 07:19 Hepatitis B Surface Antigen Negative (Negative) 07/02/24 07:19 Blood Cultures: No Data to Display Toxicology Panel: No Data to Display Imaging and Studies Imaging and Studies Study information below may be from another EMR and interpreted by another provider. Please see original notes in EMR for more complete details. Echocardiogram Summary: 06/12/24 Conclusion Normal left ventricular wall thickness and chamber size. Ejection fraction is 60 to 65%. Wall motion is normal Normal right ventricular size and function Both atria are normal in size. Incidental finding of an atrial septal aneurysm Aortic valve is mildly sclerotic and tri-leaflet without stenosis or regurgitation There is no additional significant valvular disease Other Study Summary:: MRI reviewed and CT abdomen please see reports under diagnostics Anesthesia Assessment and Plan Anesthesia History Personal History: No History of Anesthesia Complications Family History: No Family History of Anesthesia Complications Exercise Tolerance Exercise Tolerance: Metabolic Equivalents>4 Pertinent Negatives Pertinent Negatives: No Major Cardiovascular Symptoms or Complaints, No Major Pulmonary Symptoms or Complaints and No History of CVA/TIA Cardiac & Pulmonary Exam Cardiac Exam: Normal S1/S2 Heart Sounds Pulmonary Exam: Clear Bilateral Breath Sounds Implantable Cardiac Device Does patient have a Pacemaker or an ICD?: No Airway Exam Known Difficult Airway: No Mallampati Class: 3 Mouth Opening: Normal (> 3cm) Thyromental Distance: Greater than 3 cm Neck Range of Motion: Full ROM Neck Circumference: Normal Teeth Condition: Normal Dentition (pt mentioned chipped tooth 21 ) ASA Classification ASA Score: ASA 2 Emergency Case?: No NPO Status NPO Status: NPO Clears >2 hours, Solids >8 hours Anesthesia Plan Resuscitation Status: Full Code Anesthesia Technique: Spinal Anesthesia Airway Planned: Natural Airway Monitors Used: Standard Monitors Preoperative Comments:: 74 YO F presenting for Left Total Hip. PMHx notable for GERD which is controlled with daily famotidine. Reports reflux symptoms last night. Patient thinks it is due to PO intake. Plan for IV famotidine in preop.
[2024-07-17] MEDS: Lactated Ringers 1,000 ML 80 ML IV (10:50)
[2024-07-17] MEDS: ceFAZolin 2 GM/50 ML BAG IVPB (12:04)
[2024-07-17] MEDS: TRANEXAMIC ACID/SOD. CHL. 1,000 MG/100 ML BAG 600 MG IVPB (12:07)
--- NOTE | 2024-07-17 13:15 | DI.RAD_ITS ---
Exam(s) XR HIP LT IN OR EXAM: XR HIP LT IN OR CLINICAL HISTORY: Osteoarthritis left hip TECHNIQUE: 2D and realtime digital imaging was performed. CONTRAST MATERIAL: Refer to procedure report. COMPARISON: CR XR PELVIS AP from 07/02/2024 FINDINGS: Fluoroscopy was provided for Dr. Negro during the performance of a left total hip arthroplasty. Please refer to the procedure report for complete details. Ka,r=2.18 mGy IMPRESSION: RADIATION DOSE DELIVERED: 0.0 0.0 0
--- NOTE | 2024-07-17 14:07 | W.ANESPOSTOP ---
Postoperative Evaluation Date, Time and Location Date Performed: 07/17/24 Time Performed: 14:08 Patient Location: PACU Vital Signs Most Recent Imported Vital Signs: Most Recent Vital Signs Temp Pulse Resp BP Pulse Ox 36.8 C 62 11 L 107/61 97 07/17/24 13:53 07/17/24 14:01 07/17/24 14:01 07/17/24 14:01 07/17/24 14:01 Pain Score Most Recent Pain Score: Most Recent Pain Score Pain Level 0 07/17/24 13:53 Assessment Mental Status: Awake (Alert & Oriented to Patient Baseline) Airway and Respiratory Function: Patent airway with normal (patient baseline) respiratory exam Cardiovascular Function: Hemodynamically Stable Hydration Status: Adequately Hydrated Nausea & Vomiting: No Nausea or Vomiting Pain: Pain is Moderate or Severe Postoperative Pain Management: Pain being addressed with medication Peripheral Nerve Block: Patient did not receive a nerve block
[2024-07-17] MEDS: fentaNYL 100 MCG/2 ML VIAL IVP ×2 (14:10→14:20)
[2024-07-17] MEDS: Normal Saline 10 ML VIAL IJ (14:32)
[2024-07-17] MEDS: HYDROmorphone 2 MG/ML SYR IVP (14:32)
[2024-07-17] MEDS: oxyCODONE 5 MG TAB PO (15:11)
[2024-07-17] MEDS: Tranexamic Acid 650 MG TAB 1300 MG PO (15:11)
--- NOTE | 2024-07-17 16:12 | PT.INIE ---
PT Notes Visit Reasons: left hip DJD Physical Therapy Day Surgery Initial Evaluation Date: 07/18/2024 Referring Doctor: OLIVIA Enriquez PT Orders: PT CONSULT: S/P Ortho Srugery Precautions: WBAT thorugh the L LE with AD. Patient Profile/Admitting Diagnosis: Patient si a 74 year old female with degenerative joint disease of the L hip and is S/P L total hip arthroplasty on postoperative day 0. PMHX: All Active Problems Osteoarthritis of left hip (Acute) Hyperlipidemia (Chronic) Osteoporosis (Chronic) Dexa 01/2019. Fosamax started 01/2020 Essential hypertension (Chronic) GERD with esophagitis (Chronic) Glaucoma of right eye (Chronic) Primary osteoarthritis of right knee (Chronic) Sigmoid diverticulosis (Chronic) Medical History Right optic neuritis Negative MRIDiverticulitis of jejunum (~07/2023) Surgical History S/P colonoscopy (01/19/13) History of esophagogastroduodenoscopy (EGD) (01/19/13) History of bilateral tubal ligation (~12/1978) S/P excision of lipoma (~2002) of left medial thigh Social History/Home Situation: Lives with in a private home with 2 steps to enter. Independent with all aspects of ADLs prior to surgery. Equipment Owned/DME: [facility] Subjective: Agreeable to PT continuing mobility performance. Had 1 fall in the past year. Objective: General Observation: Mepilex Ag over surgical incision. Nurse Jazmin already has walked patient halway through the walk whnicky PT came in. TEDS to B legs. Mental Status: A and O x 4 Pain: 6/10 in the L hip ROM: Right Lower Extremity: Hip flexion WFL. Hip abduction WFL. Knee flexion WFL. Ankle dorsiflexion WFL. Ankle plantarflexion WFL. Left Lower Extremity: Hip flexion WFL. Hip abduction WFL. Knee flexion WFL. Ankle dorsiflexion WFL. Ankle plantarflexion WFL. Strength: Right Lower Extremity: Hip flexors 5/5. Hip abductors 5/5. Knee flexors 5/5. Knee extensors 5/5. Ankle dorsiflexors 5/5. Ankle plantarflexors 5/5. Left Lower Extremity:Hip flexors 4-/5. Hip abductors 4-/5. Knee flexors 4/5. Knee extensors 4-/5. Ankle dorsiflexors 5/5. Ankle plantarflexors 5/5. Sensation: Intact as to pain and light pressure in B LE Bed Mobility/Transfers: Minimal cueing provided for use of B hands as needed for support, movement sequence, AD management, and posture to reduce fall risk and minimize pain report Sit to stand stand by assist Stand to sit stand by assist Bed to chair stand by assist Gait: Facilitated safe and correct performance of level surface ambulation covering a distance of 75 feet from U hallway back to patient's room with reciprocal step-to gait pattern using the front-wheeled walker. Reported 6/10 pain in the L hip. Stairs: Guided patient with safe and correct negotiation of 3 x 4-inch steps and 2 x 6-inch steps while holding onto B rails for support with step-to gait pattern requiting only stand by assist. Balance: Static Sitting: Normal Dynamic Sitting: Normal Static Standing: Fair Dynamic Standing: Fair Special Tests: Mobility Limitations Standardized Measure [facility] 6 clicks Basic Mobility Inpatient Short Form: Raw Score: 23 CMS Score: 11% deficit Informed Consent/Education: Patient instructed in purpose of PT consult. Packet containing YAMILET exercise protocol has been given to patient. Education and training on initial set of exercises that can be done at home have been completed with patient. Trained patient with correct performance of exercises below to maximize motor control, joint flexibility, soft tissue extensibility of the L hip musculature to facilitate return to independent functional mobility performance. Access Code: [email or web address] URL: [email or web address] Date: 07/18/2024 Prepared by: Kira Muniz Exercises - Gluteal Sets - 1 x daily - 7 x weekly - 1 sets - 10 reps - 5 hold - Supine Heel Slide - 1 x daily - 7 x weekly - 1 sets - 10 reps - 5 hold - Supine Ankle Pumps - 1 x daily - 7 x weekly - 1 sets - 10 reps - 5 hold - Seated March - 1 x daily - 7 x weekly - 1 sets - 10 reps - 5 hold - Seated Long Arc Quad - 1 x daily - 7 x weekly - 1 sets - 10 reps - 5 hold Assessment: Patient requires the use of a front-wheeled walker for all mobility ADL performance to maximize independence and reduce fall risk. Patient presents with clinical signs and symptoms consistent with current/admitting diagnoses that have resulted to mobility limitations, gait instability, generalized weakness, and impairment of motor control as demonstrated by the following impairment level findings: 1. Decreased strength to left hip major muscle groups 2. Impaired standing balance Impairments are contributing to the following functional limitations: 1. Inability to safely ambulate without assistive device 2. Increase completion time for mobility ADL performance 3. Increased fall risk Patient is assessed as a 42261 moderate complexity based on the following: History: 74-year-old fenmale with impairment level findings, functional limitations, and past medical history as indicated above Examination: Demonstrable impairment in strength, balance, and mobility level with underlying impairments and functional limitations as documented above Presentation: Evolving Decision Makin moderate complexity Goals: N/A. PT evaluation and 1-2 treatment sessions only for functional mobility training using recommended AD and for HEP instruction. Plan of Care/Treatment Plan: N/A. PT evaluation and 1-2 treatment session only for functional mobility training using recommended AD and for HEP instruction. DISCHARGE RECOMMENDATIONS: Home when medically cleared by orthopedic surgeon. Recommend outpatient PT services in order to optimize functional mobility outcomes and facilitate return to independent community ambulation without an assistive device. TREATMENT CODE/TIME: 84000 x 19 minutes for 1 unit (16:12-16:31). Thank you for the opportunity to participate in the care of this patient. Please sign an return this page within 30 days if you agree with the above POC. Thank you! Physician Signature Date Kira Muniz PT, DPT, CLT [facility] [place], [place]
--- NOTE | 2024-07-17 18:57 | ROE_ITS ---
Operative Note Operative Note PRE-OP DIAGNOSIS: Left Hip Osteoarthritis POST-OP DIAGNOSIS: same PROCEDURE: Left Anterior Total Hip Arthroplasty with Intraoperative Navigation SURGEON: Tiago Negro INTERNET CAFE MANAGER: Jenni Salazar ANESTHESIA TYPE: Spinal Refer to Anesthesia Record ESTIMATED BLOOD LOSS: 200 PATHOLOGY: none sent TOURNIQUET TIME: 0 COMPLICATIONS: None Patient was transported to: PACU Patient's condition: stable Implants: 1. Depuy Volcano Acetabular Component, 54mm 2. Depuy Acetabular Liner, [id number] 3. Depuy Corail Standard 125 Degree Collared Femoral Stem, Size 12 4. Depuy Altrx Ceramic Femoral Head, Size 36+1.5mm Indications: I have seen Thao in clinic for symptoms of hip arthritis, confirmed with r adiographic findings. [NAME] has exhausted nonoperative methods and was having significant limitations in daily function and desired better function and less pain. I discussed the technical details of a hip replacement. I explained the risks of the procedure to include, but not limited to, bleeding, infection, pain, stiffness, fracture, damage to nerves and vessels, damage to muscles and tendons, loosening, instability, leg length inequality, need for repeat procedure, blood clot and cardiopulmonary demise. Despite these risks, Thao elected to proceed. Findings: There was significant signs of arthritis throughout the hip with large osteophytes and loss of cartilage. Procedure Description: Thao was greeted in the preoperative holding area where the correct side was identified and marked. The consent was reviewed with the patient and signed. The history and physical was updated. All questions were answered. Thao was taken back to the operating room. A spinal anesthestic was then administered. The feet were wrapped with cast padding and Coban and then placed into the boot liners and then into the boots. Care was taken to protect the skin and make sure the heels were fully down and the boots were stable. The patient was then positioned onto the HANA table. Both legs were held in a neutral position. SCDs were applied. The patient was then slid down onto a peroneal post. Prophylactic antibiotics in the form of Cefazolin were administered. 1g of Tranxemic Acid was given intravenously within 30 minutes of incision. The left leg was then prepped with Chloraprep and draped in a standard fashion. A second prep with Chloraprep was performed prior to placement of a shower-curtain type drape with Iodine impregnated skin protection. A timeout to confirm correct identity, side and site, procedure, allergies, anesthesia, and medical concerns was performed. An obliquely oriented incision was made starting lateral to the ASIS and running distal over the Tensor Fascia Nahomi (TFL) muscle belly toward the fibular head, approximately 10cm. The skin and soft tissue was dissected sharply, through Perry?s fascia, and to the fascia of the TFL. With the fascia and superior border of the IT band identified, the fascia was incised with a new knife just above any perforators from the IT band. The TFL muscle belly was bluntly dissected away from the fascia and moved laterally. The fat between TFL and rectus was identified to ensure the dissection was not within the TFL. Blunt dissection created space between abductors and the capsule and retractor was placed over the lateral femoral neck. The fibers of the rectus femoris tendon were identified and these were freed from the anterior capsule. A second cobra retractor was placed around the medial femoral neck. The TFL was further retracted laterally to show the deep fascia. Careful dissection through this layer identified three main crossing vessels of the lateral femoral circumflex. These were cauterized in multiple locations and then cut without any noticeable bleeding. The TFL was further released bluntly from the deep fascia to expose anterior hip capsule and fat The soft tissue orthopaedic retractor was then placed beneath the TFL and against sartorius and medial soft tissues to protect and retract the soft tissues. A T-capsulotomy was then performed starting at the superior lateral acetabulum and moving distally to the intertrochanteric ridge. These capsular flaps were tagged with a No. 1 Vicryl and elevated from within. The capsular flaps were released to the shoulder of the lateral neck and to the lesser trochanter to give excellent visualization of the proximal femur. A neck osteotomy was performed using an oscillating saw based on preoperative templates. This cut started in the shoulder and of the lateral neck and exited medially. The saw was at all times directed medially to avoid injury to the greater trochanter. Gross traction was applied to the leg and the osteotomy opened. The femoral head was removed with a corkscrew, making sure to protect the TFL on its exit. Traction was released after head removal. This was measured on the back table to determine the starting reamer size. Portions of the rectus obscuring visualization were minimally elevated off the superior acetabulum. An anterior retractor was placed over the anterior wall between capsule and labrum and attached to the Gripper retraction system. The femur was rotated to 90 degrees and medial capsule was fully released until the lesser trochanter was palpable and visible; the femur was returned to 30 degrees. A posterior retractor was placed similarly between capsule and labrum. This provided excellent visualization. The contents of the cotyloid fossa were removed with electrocautery and the labrum was removed with a knife. There was a notable floor osteophyte. There was significant chondromalacia of the superior acetabulum. Acetabular reaming began with a 48mm reamer. This first reaming was directed anterior to posterior and medial to get down to the true floor. This was inspected and reamed until the true floor was reached. The anterior retractor was then released and entry and exit was provided by traction on the capsular flaps. I then reamed sequentially up to a 54mm reamer where good fit was obtained. The larger reamers were oriented based on anatomical reference of the anterior and lateral willis to ensure proper abduction and anteversion. Positioning and size was confirmed with the fluoroscopy. A 54mm Depuy Volcano acetabular component was selected. The acetabulum was reamed around the periphery with the selected acetabular size to prevent a rim fit. The deep tissues were irrigated. The acetabular component was then impacted in a position of about 40-45 degrees of abduction and 15-20 degrees of anteversion, using the patient?s anatomy as the ultimate landmark. Fluoroscopy was used to confirm this. There was excellent diesel motor mechanic of the acetabular component and the inserting handle was removed. The acetabular liner, Depuy [id number] polyethylene liner, was inserted and lined up with the tines of the acetabular component. There was no soft tissue interposition. The liner was then impacted into position and confirmed to be well-seated. A portion of the jillian-articular cocktail was then injected around the acetabulum into the capsule and periosteum. This cocktail consisted of 123mg of Ropivacaine, 0.25mg of Epinephrine, 0.04mg of Clonidine, and 15mg of Ketorolac, diluted to 50cc. The leg was rotated to 120 degrees. Any remaining medial capsule was released until the lesser trochanter was easily palpable. A retractor was placed medially. The lateral capsule was further released into the shoulder to allow access to the greater trochanter. A Junior retractor was placed over the greater trochanter which allowed the trochanter to flip in front of the capsule for excellent exposure. The leg was brought down into maximal extension and 20 degrees of adduction while ensuring there was no impingement on the acetabulum. Any remnant capsule within the trochanter was released. Piriformis and obturator externis were identified and protected. There was excellent access to the proximal femur. The lateral neck remnant was removed with a rongeur. A blunt canal probe was used to identify the canal and trajectory for later broaching. A box osteotome initiated the broach course. A small curved rasp and a curved curette were used to work laterally. Broaching then began with a size 8 Corail broach. This was inserted manually around the trochanter and into the canal before mallet blows. The broach was seated to a few millimeters below the cut level based on the neck cut and the preoperative template. Sequential broaching was continued with the Mobile[employer] pneumatic broaching device until a tight fit was obtained with good rotational control of the femur. A trial standard 125 degree neck was inserted along with a +1.5mm trial head. The leg was brought out of extension and adduction and then reduced with traction and internal rotation. The leg was stable anteriorly in a position of 30 degrees of extension and 90 degrees of external rotation. Fluoroscopy was used to ensure there was no fracture and the stem was seated well. Leg lengths were checked with an AP pelvis and pelvic reference points. The [employer] navigation system was used to confirm appropriate positioning and leg length and offset. Once content with the desired offset and leg lengths, the leg was brought back into extension, external rotation and adduction. The periosteum and surrounding tissue was injected with remaining portion of the jillian-articular cocktail. The proximal femur was irrigated as well as the deep tissues. The Depuy Corail standard 125 degree collared stem, size 12, was then manually inserted into the proximal femur making sure to control rotation. It was then malleted into position with light blows, giving breaks to allow bone expansion and decrease risk of fracture. The selected Depuy Altrx Ceramic Head, size 36+1.5mm, was then placed onto the clean and dry trunnion and secured with impaction onto the tapered fit. The leg was brought back out of extension and adduction and reduced with traction and internal rotation. Stability was confirmed with no shuck at 90 degrees of external rotation and 30 degrees of extension. No impingement through range of motion arc. Final x-ray images were obtained with fluoroscopy to confirm adequate positioning and no intraoperative fracture. The deep tissues were thoroughly irrigated with Surgiphor, betadine solution. This was allowed to sit in the wound for 3 minutes before being thoroughly irrigated out with normal saline. The capsule was then reapproximated with the previously placed sutures and the indirect head of the rectus was inspected and reapproximated with a #1 Vicryl. The TFL fascia was finally closed with a No. 2 Stratafix, barbed suture. Deep tissues were then reapproximated with 0 Vicryl and a running 2-0 Vicryl. The skin was closed with a running 4-0 Monocryl in a subcuticular fashion. This was reinforced with skin glue. A Mepilex silver dressing was applied. At the end of the case, all counts were correct. Thao was transferred to the hospital bed without difficulty and suffering no apparent complication. Thao has a good prognosis. Physical therapy will start today and without restrictions, weight-bearing as tolerated. Aspirin 81mg BID will be used for DVT prophylaxis. Date of Procedure: 07/17/24
== END 2024-07-17 16:46 | disposition home or self-care (01) ==
PROVIDERS: PCP Nurse Practitioner Family; Visit Provider Student in an Organized Health Care Education/Training Program
PROC: (CPT 27130; principal; 2024-07-17 12:15)
DX: M16.12 Unilateral primary osteoarthritis, left hip (principal); E78.5 Hyperlipidemia, unspecified; I10 Essential (primary) hypertension; K21.00 Gastro-esophageal reflux disease with esophagitis, without bleeding; K57.30 Diverticulosis of large intestine without perforation or abscess without bleeding
CPT/HCPCS: 20985; 27130; 97162; 73501; C1776; J0690; J1100; J1171; J2003; J2250; J2371; J2401; J2405; J2704; J3010

== ENCOUNTER 2024-07-21 14:04 | Emergency (ER) | payer MEDICARE, SELFPAY ==
[2024-07-21] VITALS (26 sets, daily range): BP systolic 88–121; BP diastolic 43–79; PULSE 80–93; RESP 13–42; TEMP 36.5; O2SAT 93–99
--- NOTE | 2024-07-21 14:00 | RT.EKG_ITS ---
APPROVED REPORT Exam: Resting ECG Reason for Exam: dizzy Patient Location: E HR:85 bpm ECG Measurements Heart Rate 85 AXIS NC 166 P 76 QRSd 81 QRS 30 QT 361 T 75 QTc 430 Conclusion Sinus rhythm 85 normal axis no stemi
--- NOTE | 2024-07-21 14:22 | DI.CT_ITS ---
Exam(s) CT HEAD CERV SPINE FACIAL WO EXAM: CT HEAD CERV SPINE FACIAL WO CLINICAL HISTORY: fall. TECHNIQUE: Imaging Protocol: Axial computed tomography images with coronal and sagittal reformatted images were created and reviewed COMPARISON: No exams were available for comparison FINDINGS: CT Head: Ventricles and Extra axial spaces: Normal in size and morphology for the patient's age. Hemorrhage: None. Cerebral parenchyma: There are areas of decreased attenuation in the white matter consistent with chr onic microvascular ischemic disease. No evidence of an acute territorial infarct or mass effect. Midline shift: None. Brainstem/Cerebellum: Normal. Calvarium: Normal. Visualized Paranasal sinuses/Mastoids: Clear. Soft Tissues: Unremarkable. CT Face: Facial Bones: No definite fracture is noted in facial bones. Sinuses and Mastoids: Unremarkable. Globes, extraocular muscles, optic nerves and retrobulbar fat: Normal. Upper aerodigestive tract: Normal. Mandible and bilateral temporomandibular joints: Normal. Soft tissues: Mild right periorbital soft tissue swelling laterally. CT Cervical Spine: Bones: No acute fracture or subluxation. Age-appropriate degenerative changes are seen in the cervica l spine particularly at C5-6 and C6-C7. Soft Tissues: Unremarkable. Lung Apices: Clear. IMPRESSION: 1. No acute intracranial process. 2. No acute fracture or subluxation in the cervical spine. 3. No acute facial fracture. 4. The preliminary [facility] report was reviewed. RADIATION DOSE DELIVERED: !Error Total DLP DATA REPOSITORY: All CT scans at this facility are submitted to the National Radiology Data Registry (NRDR) Dose Index Registry (DIR) with the [employer] (ACR). RADIATION OPTIMIZATION: All CT scans at this facility use at least one of these dose optimization te chniques: automated exposure control; mA and/or kV adjustment per patient size (includes targeted exa ms where dose is matched to clinical indication); or iterative reconstruction.
--- NOTE | 2024-07-21 14:30 | DI.RAD_ITS ---
Exam(s) XR HIP LT COMPLETE AP PELVIS EXAM: XR HIP LT COMPLETE AP PELVIS CLINICAL HISTORY: fall s/p replacement. TECHNIQUE: 2D digital imaging was performed. Three images were obtained. AP pelvis and AP and later al left hip views were obtained. COMPARISON: CR XR HIP LT COMPLETE AP PELVIS from 02/23/2024 CR XR PELVIS AP from 07/02/2024 XA XR HIP LT IN OR from 07/17/2024 FINDINGS: BONES: There are stable post operative changes of a left total hip arthroplasty present. No fracture or dislocation. JOINTS: The orthopedic hardware is in good position. No evidence of hardware loosening. There are m arked degenerative changes seen in the right hip characterized by joint space narrowing, subchondral sclerosis and osteophytes. SOFT TISSUE: Normal. IMPRESSION: 1. Stable left total hip arthroplasty. 2. No acute fracture or dislocation. 3. The preliminary [facility] report was reviewed. DATA REPOSITORY: RADIATION DOSE DELIVERED:
--- NOTE | 2024-07-21 14:45 | ED.GENADUL_ITS ---
Discharge Plan Disposition Patient Disposition: Home Condition: Stable Discharge Details Clinical Impression: Vasovagal episode, History of total left hip arthroplasty, Syncope, Nausea vomiting and diarrhea, Face lacerations, Contusion of face Primary Care Provider: Leanne Berry ED Provider: Adilene Javier Home Meds and New Rx's Prescriptions: New ondansetron 4 mg tablet,disintegrating 4 mg PO Q6H PRN (Reason: nausea and vomiting) Qty: 30 0RF No Action latanoprost 0.005 % drops 1 drp OP QHS multivitamin [Daily Multi-Vitamin] Tablet 1 tab PO DAILY PreserVision AREDS-2 [id number] da-jahp-[id number]-mg capsule 1 tab PO ONCE Rx Instructions: administer with meals famotidine [Acid Camera Storage Clerk (famotidine)] 10 mg tablet 10 mg PO QHS PRN diphenhydramine-acetaminophen [Tylenol PM Extra Strength] 25-500 mg tablet 1 tab PO QHS PRN simethicone [Gas Relief (simethicone)] 125 mg capsule 125 mg PO QD-BID PRN cholecalciferol (vitamin D3) 25 mcg (1,000 unit) capsule 25 mcg PO DAILY timolol maleate 0.5 % gel forming solution 1 drp Ophthalmic DAILY losartan 25 mg tablet 25 mg PO DAILY Qty: 90 3RF alendronate 70 mg tablet 70 mg PO QWEEK Qty: 13 3RF Patient Comments: Rx Instructions: Take 1 tablet once a week celecoxib [Celebrex] 200 mg capsule 200 mg PO BID PRNQty: 60 0RF Rx Instructions: Take one tablet twice daily for pain and inflammation aspirin 81 mg tablet,delayed release (DR/EC) 81 mg PO BID 30 Days Qty: 60 0RF acetaminophen 500 mg tablet 1,000 mg PO Q8H PRN Qty: 90 0RF Rx Instructions: Take two tablets up to every 8 hours as needed for pain pantoprazole 40 mg tablet,delayed release (DR/EC) 40 mg PO DAILY Qty: 14 0RF docusate sodium [Colace] 100 mg capsule 100 mg PO BID Qty: 28 0RF oxycodone 5 mg tablet 5 mg PO Q6H PRNQty: 12 0RF Rx Instructions: Take one tablet up to every 6 hours as needed for severe postoperative pain Discharge Instructions Additional Instructions: * Your blood pressure was low when you came in, likely because of the diarrhea and the vomiting. You have been prescribed Zofran to take as needed for any nausea. Make sure you are drinking plenty of water and increase your fluid intake with things like Pedialyte or Gatorade. * Please make sure to ambulate slowly And use caution when going from sitting to standing. * Continue your medications as prescribed from your orthopedic surgeon * Your CT and x-ray imaging today did not reveal any new acute injuries. * You have a small cut over your right eyebrow. This cut was closed with Steri- Strips. You can get these wet, shower and wash your face as normal, pat dry. Do not pull the Steri-Strips off, they will fall off on their OWN * Follow-up with your primary care provider and orthopedic surgeon as scheduled. Discharge Data Discharge Date/Time-TO BE ENTERED AT DEPARTURE: 07/21/24 17:38 HPI General Date/Time Provider Initiated Documentation: 07/21/24 14:09 . Limitations to Documentation: no limitations . Information obtained by: patient . HPI Narrative: 74-year-old female with past medical history of hypertension and recent total left hip arthroplasty (07/17) presents for evaluation after a fall. She reports t hat yesterday she had diarrhea all day and felt very wiped out. She states this morning she had some nausea chills and sweats. It was associated with several episodes of vomiting. After an episode of vomiting she was leaving the bathroom and reports that she later woke up on the floor. She does not recall the fall and states when she woke up she did not really remember anything that happened o r that she had recently had surgery. She states that her found her she was approximately on the floor for about 15 minutes. She has been taking her medication as prescribed. She is on postoperative aspirin for DVT prophylaxis. She denies any pain in her hip. She states that she did hit her head and had some bleeding over her right eyebrow, but the bleeding has resolved. Related Data Home Medications ?Medication ?Instructions ?Recorded ?Confirmed multivitamin (Daily Multi-Vitamin 1 tab PO DAILY 12/13/19 07/21/24 tablet) vit C 250 mg-vit E 90 mg-zinc 40 1 tab PO ONCE 12/13/19 07/21/24 mg-copper 1 [id number] capsule (PreserVision AREDS-2) diphenhydramine 25 1 tab PO QHS PRN 03/16/21 07/21/24 mg-acetaminophen 500 mg tablet (Tylenol PM Extra Strength) simethicone 125 mg capsule (Gas 125 mg PO QD-BID PRN 03/16/21 07/21/24 Relief (simethicone)) latanoprost 0.005 % eye drops 1 drp ophthalmic (eye) QHS 05/10/22 07/21/24 timolol maleate 0.5 % eye gel 1 drp ophthalmic (eye) DAILY 05/10/22 07/21/24 forming solution famotidine 10 mg tablet (Acid 10 mg PO QHS PRN 05/12/23 07/21/24 Camera Storage Clerk (famotidine)) cholecalciferol (vitamin D3) 25 25 mcg PO DAILY 12/06/23 07/21/24 mcg (1,000 unit) capsule losartan 25 mg tablet 25 mg PO DAILY #90 tabs 12/14/23 07/21/24 alendronate 70 mg tablet 70 mg PO QWEEK #13 tabs 01/26/24 07/21/24 acetaminophen 500 mg tablet 1,000 mg (2 x 500 mg) PO Q8H PRN 07/17/24 07/21/24 pain #90 tabs aspirin 81 mg tablet,delayed 81 mg PO BID 30 days #60 tabs 07/17/24 07/21/24 release celecoxib 200 mg capsule (Celebrex) 200 mg PO BID PRN #60 caps 07/17/24 07/21/24 docusate sodium 100 mg capsule 100 mg PO BID #28 caps 07/17/24 07/21/24 (Colace) oxycodone 5 mg tablet 5 mg PO Q6H PRN #12 tabs 07/17/24 07/21/24 pantoprazole 40 mg tablet,delayed 40 mg PO DAILY #14 tabs 07/17/24 07/21/24 release ondansetron 4 mg disintegrating 4 mg PO Q6H PRN nausea and 07/21/24 tablet vomiting #30 tabs Previous Rx's ?Medication ?Instructions ?Recorded losartan 25 mg tablet 25 mg PO DAILY #90 tabs 12/14/23 alendronate 70 mg tablet 70 mg PO QWEEK #13 tabs 01/26/24 acetaminophen 500 mg tablet 1,000 mg (2 x 500 mg) PO Q8H PRN 07/17/24 pain #90 tabs aspirin 81 mg tablet,delayed 81 mg PO BID 30 days #60 tabs 07/17/24 release celecoxib 200 mg capsule (Celebrex) 200 mg PO BID PRN #60 caps 07/17/24 docusate sodium 100 mg capsule 100 mg PO BID #28 caps 07/17/24 (Colace) oxycodone 5 mg tablet 5 mg PO Q6H PRN #12 tabs 07/17/24 pantoprazole 40 mg tablet,delayed 40 mg PO DAILY #14 tabs 07/17/24 release ondansetron 4 mg disintegrating 4 mg PO Q6H PRN nausea and 07/21/24 tablet vomiting #30 tabs Allergies Allergy/AdvReac Type Severity Reaction Status Date / Time ciprofloxacin Allergy Severe effects Verified 07/21/24 14:09 my tendons, causes pain in legs. lisinopril AdvReac Mild Cough Verified 07/21/24 14:09 General Stated Complaint: Fall/Non TraumaCriteria AVELINA: 3 Exam Narrative Exam Narrative: Review of Systems: All systems reviewed & are unremarkable except as noted in HPI and below Well-developed, no acute distress 2.5 cm laceration over the right lateral eyebrow, mild periorbital tenderness and bruising noted, no periorbital instability, no signs of entrapment, extraocular movements intact no facial instability or malocclusion PERRL, normal conjunctiva RRR no murmur Unlabored respiratory effort clear bilaterally Nondistended abdomen soft nontender Tenderness over the left hip limited range of motion there, no focal neurologic deficits No C-spine tenderness step-off or deformity Course Vital Signs Vital signs: Vital Signs Temperature 36.5 C 07/21/24 14:05 Pulse 89 07/21/24 14:05 Respiratory Rate 16 07/21/24 14:05 Blood Pressure 121/79 07/21/24 14:05 Pulse Oximetry 98 07/21/24 14:05 Temperature 36.5 C 07/21/24 14:05 Pulse 89 07/21/24 14:05 Respiratory Rate 16 07/21/24 14:05 Blood Pressure 121/79 07/21/24 14:05 Blood Pressure Position Sitting 07/21/24 14:05 Pulse Oximetry 98 07/21/24 14:05 Oxygen Delivery Method Room Air 07/21/24 14:05 Oxygen Flow Rate 0 07/21/24 14:05 Pain Level 0 07/21/24 14:05 Procedure Laceration Laceration 1: Side (If applicable): right Description: linear Depth: simple, single layer Pre-repair:: wound explored Skin layer closed with: other (steri strips) Procedure Description/Note: Wound approximately 2.5 cm over the right eyebrow. Well-approximated, underlying bruising and hematoma noted. Wound cleaned and Steri-Strips placed Medical Decision Making Emergent evaluation after a fall. Fall likely in the setting of recent vomiting episode. Also with multiple episodes of diarrhea. Concern for volume depletion, orthostasis, electrolyte derangement also considered. The patient is hemodynamically stable but her blood pressure does seem to be a little soft. Poor oral intake since surgery. Not on any narcotics. Bit is on aspirin. The patient has a small facial laceration. Will send for CT imaging to evaluate for intracranial fracture or other traumatic etiology as well as x-ray imaging of her hips and pelvis to make sure that the recent operation is unaffected. Will give fluids and Zofran and monitor for signs of improvement. patient's blood pressure improved with IV fluids. Her lab work was unremarkable. She does have a slight leukocytosis which I suspect is from the recent surgery as well as steroid use postoperatively. CT imaging of her head face and C-spine did not reveal acute traumatic injury. Her x-ray of her pelvis and hip do not demonstrate any malalignment of the recent hardware. Patient laceration was repaired with Steri-Strips, she is feeling much better after some IV fluids. She was discharged with Zofran to take as needed for any nausea and to try and increase her oral fluid intake. Strict return precautions advised. Patient has follow-up scheduled with PCP and orthopedics. Quality:SDOH Health Related Social Needs: Health related social needs feeling lonely/isolated (Z 60.8) Health related social needs details none PFSH All Active Problems (Updated 07/21/24 @ 17:19 by Adilene Javier MD) Contusion of face (Acute) Face lacerations (Acute) Nausea vomiting and diarrhea (Acute) Syncope (Chronic) Vasovagal episode (Acute) History of total left hip arthroplasty (Acute 07/17/24) Hyperlipidemia (Chronic) Osteoporosis (Chronic) Dexa 01/2019. Fosamax started 01/2020 Essential hypertension (Chronic) GERD with esophagitis (Chronic) Glaucoma of right eye (Chronic) Primary osteoarthritis of right knee (Chronic) Sigmoid diverticulosis (Chronic) Medical History Right optic neuritis Negative MRI Diverticulitis of jejunum (~07/2023) Surgical History S/P colonoscopy (01/19/13) History of esophagogastroduodenoscopy (EGD) (01/19/13) History of bilateral tubal ligation (~12/1978) S/P excision of lipoma (~2002) of left medial thigh Family History Mother , at 91 Depression Hyperlipidemia Breast cancer x 2; in her 40s Stroke Hypertension Father No problems noted. Son No problems noted. Son No problems noted. Maternal Grandfather , in his 70s of [place] Myocardial infarction Hyperlipidemia Maternal Grandmother Hyperlipidemia Heart disease Hypertension Cancer Doesn't know which type Paternal Grandfather No problems noted. Paternal Grandmother No problems noted. Social History Smoking/Tobacco Use Status: Former Tobacco Use tobacco type: cigarettes Quit Date: 02/14/74 Tobacco: How many years used: 4 Second Hand Exposure: No Smoking risk assessment performed?: Yes Alcohol Intake: current Alcohol Intake frequency: holidays/special occasions only Alcohol type: beer Drug use: Never Substance use type: does not use Household members: spouse Housing: house Pets and animals: No Sexually active: Yes Current gender identity: female What is your relationship status?: How often do you talk on the phone with friends or family?: decline to answer How often do you get together with friends or relatives?: decline to answer How often do you attend yazidi or quaker services?: decline to answer Do you belong to any clubs or organized social groups?: decline to answer Panel score (0-1 are the most socially isolated patients): 1 Duration: 15-30 minutes/day Frequency: 3-4 times per week Dinora/Taoist: Jehovah'S Witness Special dinora needs: No Seatbelt use: always Drive intox or ride w/intox escort vehicle driver: No Do you feel safe at home: Yes Do you feel safe in your relationship?: Yes Female Reproductive History Menstrual Menopause type: natural History History 2 Para 2 Hx # Term Pregnancies Multiple births Hx # Pregnancies Ectopic pregnancies AB induced Hx Number of Living Children 2 AB spontaneous
[2024-07-21] MEDS: Normal Saline 1,000 ML 1000 ML IV (14:58)
[2024-07-21] MEDS: Ondansetron 4 MG/2 ML VIAL IVP (14:58)
[2024-07-21 15:01] LABS: Abs Immature Grans 0.07 10^3/uL (0.0-0.06); Absolute Basophil Count 0.03 10^3/uL (0.0-0.2); Absolute Eosinophil Count 0.03 10^3/uL (0.0-0.7); Absolute Lymphocyte Count 0.62 10^3/uL (1.2-3.4); Basophils % 0.2 %; Eosinophils % 0.2 %; HCT 38.8 % (36.0-46.0); HGB 12.7 g/dL (11.2-15.7); Immature Grans % 0.4 %; Lymphocytes % 3.8 %; MCH 28.9 pg (27.0-33.0); MCHC 32.7 % (32.0-36.0); MCV 88 fL (80-95); MPV 11.4 fL (8.0-11.0); Monocytes % 4.3 %; Neutrophils % 91.1 %; Platelet Count 224 10^3/uL (130-400); RDW 13.5 % (11.7-14.6); RDW-SD 43.8 fL; WBC 16.34 10^3/uL (4.4-10.8)
[2024-07-21 15:06] LABS: Absolute Neutrophil Count 14.89 10^3/uL (1.2-6.7)
[2024-07-21 15:47] LABS: ALT 43 U/L (14-59); AST 51 U/L (15-37); Albumin 4.1 g/dL (3.4-5.0); Alkaline Phosphatase 81 U/L (46-116); Anion Gap 12.3 mmol/L (3-11); BUN 18 mg/dL (7-18); Bilirubin, Total 0.6 mg/dL (0.2-1.0); CO2 25.7 mmol/L (21.0-32.0); Calcium 9.9 mg/dL (8.5-10.1); Chloride 102 mmol/L (98-107); Creatine Kinase 591 U/L (26-192); Estimated GFR 58.75 (mL/min/1.73m2); Glucose 114 mg/dL (74-106); Magnesium 2.4 mg/dL (1.8-2.4); Potassium 3.8 mmol/L (3.5-5.1); Sodium 140 mmol/L (136-145); Total Protein 8.6 g/dL (6.4-8.2)
--- NOTE | 2024-07-21 15:52 | DI.VRAD_ITS ---
PROCEDURE INFORMATION: Exam: CT Head Without Contrast Exam date and time: 07/21/2024 3:11 PM Age: 74 years old Clinical indication: Injury or trauma; Fall; Blunt trauma (contusions or hematomas); Consciousness not specified; Orbit/periorbital; Right TECHNIQUE: Imaging protocol: Computed tomography of the head without contrast. COMPARISON: MR BRAIN ORBIT FACE NECK WO/W 09/07/2022 1:55 PM FINDINGS: Brain: Normal. No hemorrhage. Unremarkable white matter. No mass effect. Cerebral ventricles: No ventriculomegaly. Paranasal sinuses: Visualized sinuses are unremarkable. No fluid levels. Mastoid air cells: Visualized mastoid air cells are well aerated. Bones: Unremarkable. No acute fracture. Soft tissues: Unremarkable. IMPRESSION: No acute intracranial abnormality. PROCEDURE INFORMATION: Exam: CT Maxillofacial Without Contrast Exam date and time: 07/21/2024 3:11 PM Age: 74 years old Clinical indication: Injury or trauma; Fall; Blunt trauma (contusions or hematomas); Consciousness not specified; Orbit/periorbital; Right TECHNIQUE: Imaging protocol: Computed tomography of the face without contrast. COMPARISON: MR BRAIN ORBIT FACE NECK WO/W 09/07/2022 1:55 PM FINDINGS: Paranasal sinuses: No air-fluid levels. Orbital cavities: Orbits are normal. Globes are unremarkable. No retro bulbar hematoma. Bones: No acute fracture. Soft tissues: Right periorbital swelling noted. IMPRESSION: Right periorbital contusion without fracture or other orbital injury. PROCEDURE INFORMATION: Exam: CT Cervical Spine Without Contrast Exam date and time: 07/21/2024 3:11 PM Age: 74 years old Clinical indication: Injury or trauma; Fall; Blunt trauma (contusions or hematomas); Consciousness not specified; Orbit/periorbital; Right TECHNIQUE: Imaging protocol: Computed tomography of the cervical spine without contrast. COMPARISON: MR BRAIN ORBIT FACE NECK WO/W 09/07/2022 1:55 PM FINDINGS: Bones: No acute fracture. There is straightening of the normal cervical lordosis. Grade 1 anterolisthesis at C3-C4 and C4-C5 levels. Multilevel degenerative disc disease and facet arthropathy. Lungs: Lung apices are normal. Soft tissues: Unremarkable. IMPRESSION: No acute findings. Dictated and Authenticated by: Miguelina Thomason MD. Orderin Yaya Whitfield MD
--- NOTE | 2024-07-21 17:00 | DI.VRAD_ITS ---
PROCEDURE INFORMATION: Exam: XR Left Hip Exam date and time: 07/21/2024 3:46 PM Age: 74 years old Clinical indication: Injury or trauma; Blunt trauma (contusions or hematomas); Left; Hip; Injury details: Fall S/P replacement; Prior surgery; Surgery date: Post-operative (0-2 days) TECHNIQUE: Imaging protocol: Radiologic exam of the left hip. Views: 2 or 3 views hip with pelvis when performed. COMPARISON: XA XR HIP LT IN OR 04/19/2024 11:41 FINDINGS: Bones/joints: Total left hip arthroplasty. Degenerative changes of the visualized lumbar spine. Degenerative changes of the right hip. Soft tissues: Unremarkable. IMPRESSION: Total left hip arthroplasty. Dictated and Authenticated by: Kristine Davis MD. Orderin Yaya Whitfield MD
== END 2024-07-21 17:38 | disposition home or self-care (01) ==
PROVIDERS: Emergency Provider Emergency Medicine; PCP Nurse Practitioner Family
DX: R55 Syncope and collapse (principal); S01.111A Laceration without foreign body of right eyelid and periocular area, initial encounter; S00.83XA Contusion of other part of head, initial encounter; R19.7 Diarrhea, unspecified; R11.2 Nausea with vomiting, unspecified; Z79.82 Long term (current) use of aspirin; Z96.642 Presence of left artificial hip joint; W18.39XA Other fall on same level, initial encounter; Y93.89 Activity, other specified; Y92.012 Bathroom of single-family (private) house as the place of occurrence of the external cause; Z87.891 Personal history of nicotine dependence
CPT/HCPCS: 36415; 80053; 82550; 93005; 96374; 99285; 70450; 70486; 72125; 73502; 83735; 85025; 93010; J2405

== ENCOUNTER 2024-07-26 13:10 | Outpatient (CLI) | payer MEDICARE, SELFPAY ==
--- NOTE | 2024-07-26 13:00 | RT.EKG_ITS ---
APPROVED REPORT Exam: Resting ECG Reason for Exam: Gerd Patient Location: O HR:81 bpm ECG Measurements Heart Rate 81 AXIS ND 189 P 68 QRSd 84 QRS 52 QT 368 T 60 QTc 428 Conclusion Sinus rhythm...normal P axis, V-rate 50- 99 Normal Electrocardiogram
== END 2024-07-26 13:11 | disposition home or self-care (01) ==
LOC: DI.CM 13:10
PROVIDERS: PCP Nurse Practitioner Family; Visit Provider Nurse Practitioner Family
DX: R07.89 Other chest pain (principal); K21.9 Gastro-esophageal reflux disease without esophagitis
CPT/HCPCS: 93010

== ENCOUNTER 2024-07-26 14:52 | Emergency (ER) | payer MEDICARE, SELFPAY ==
[2024-07-26] VITALS (8 sets, daily range): BP systolic 101–123; BP diastolic 56–60; PULSE 82–93; RESP 14; TEMP 36.7; O2SAT 95–99
--- NOTE | 2024-07-26 14:45 | RT.EKG_ITS ---
APPROVED REPORT Exam: Resting ECG Reason for Exam: Concern for EKG changes Patient Location: E HR:92 bpm ECG Measurements Heart Rate 92 AXIS ID 169 P 70 QRSd 76 QRS 39 QT 336 T 58 QTc 415 Conclusion Sinus rhythm, rate 92 No interval abnormalities No STEMI No changes from prior
--- NOTE | 2024-07-26 15:53 | W.ED.GENAD ---
Discharge Plan Disposition Patient Disposition: Home Condition: Stable Discharge Details Clinical Impression: Diarrhea Primary Care Provider: Leanne Berry ED Provider: Tawanna Bauman Home Meds and New Rx's Prescriptions: Continued latanoprost 0.005 % drops 1 drp OP QHS multivitamin [Daily Multi-Vitamin] Tablet 1 tab PO DAILY PreserVision AREDS-2 [id number]-[id number]-[id number]-mg capsule 1 tab PO ONCE Rx Instructions: administer with meals famotidine [Acid Software Engineering Associate Manager (famotidine)] 10 mg tablet 10 mg PO QHS PRN diphenhydramine-acetaminophen [Tylenol PM Extra Strength] 25-500 mg tablet 1 tab PO QHS PRN simethicone [Gas Relief (simethicone)] 125 mg capsule 125 mg PO QD-BID PRN cholecalciferol (vitamin D3) 25 mcg (1,000 unit) capsule 25 mcg PO DAILY timolol maleate 0.5 % gel forming solution 1 drp Ophthalmic DAILY losartan 25 mg tablet 25 mg PO DAILY Qty: 90 3RF alendronate 70 mg tablet 70 mg PO QWEEK Qty: 13 3RF Patient Comments: Rx Instructions: Take 1 tablet once a week ondansetron 4 mg tablet,disintegrating 4 mg PO Q6H PRN (Reason: nausea and vomiting) Qty: 30 0RF celecoxib [Celebrex] 200 mg capsule 200 mg PO BID PRNQty: 60 0RF Rx Instructions: Take one tablet twice daily for pain and inflammation aspirin 81 mg tablet,delayed release (DR/EC) 81 mg PO BID 30 Days Qty: 60 0RF acetaminophen 500 mg tablet 1,000 mg PO Q8H PRN Qty: 90 0RF Rx Instructions: Take two tablets up to every 8 hours as needed for pain pantoprazole 40 mg tablet,delayed release (DR/EC) 40 mg PO DAILY Qty: 14 0RF Patient Comments: Pt states she has not been taking 07/26/24 docusate sodium [Colace] 100 mg capsule 100 mg PO BID Qty: 28 0RF oxycodone 5 mg tablet 5 mg PO Q6H PRNQty: 12 0RF Rx Instructions: Take one tablet up to every 6 hours as needed for severe postoperative pain Discharge Instructions Instructions: Diarrhea, Adult ED Additional Instructions: please bring the stool sample to the lab as soon as possible increase fluids, 8/8 oz glasses of water daily return earlier with new or worsening complaints Referrals: Leanne Berry NP [Primary Care Provider, Medicine] HPI General Date/Time Provider Initiated Documentation: 07/26/24 14:53. HPI Narrative: 74-year-old female, status post left hip replacement, presents with intermittent diarrhea over the past several days. Experienced diarrhea this morning and sought medical attention at urgent care for an antidiarrheal. Reports intermittent epigastric discomfort, leading to an EKG and referral based on results. Denies weakness, dizziness, abdominal pain, chest pain, or shortness of breath. Related Data Home Medications ?Medication ?Instructions ?Recorded ?Confirmed multivitamin (Daily Multi-Vitamin 1 tab PO DAILY 12/13/19 07/26/24 tablet) vit C 250 mg-vit E 90 mg-zinc 40 1 tab PO ONCE 12/13/19 07/26/24 mg-copper 1 [id number] capsule (PreserVision AREDS-2) diphenhydramine 25 1 tab PO QHS PRN 03/16/21 07/26/24 mg-acetaminophen 500 mg tablet (Tylenol PM Extra Strength) simethicone 125 mg capsule (Gas 125 mg PO QD-BID PRN 03/16/21 07/26/24 Relief (simethicone)) latanoprost 0.005 % eye drops 1 drp ophthalmic (eye) QHS 05/10/22 07/26/24 timolol maleate 0.5 % eye gel 1 drp ophthalmic (eye) DAILY 05/10/22 07/26/24 forming solution famotidine 10 mg tablet (Acid 10 mg PO QHS PRN 05/12/23 07/26/24 Software Engineering Associate Manager (famotidine)) cholecalciferol (vitamin D3) 25 25 mcg PO DAILY 12/06/23 07/26/24 mcg (1,000 unit) capsule losartan 25 mg tablet 25 mg PO DAILY #90 tabs 12/14/23 07/26/24 alendronate 70 mg tablet 70 mg PO QWEEK #13 tabs 01/26/24 07/26/24 acetaminophen 500 mg tablet 1,000 mg (2 x 500 mg) PO Q8H PRN 07/17/24 07/26/24 pain #90 tabs aspirin 81 mg tablet,delayed 81 mg PO BID 30 days #60 tabs 07/17/24 07/26/24 release celecoxib 200 mg capsule (Celebrex) 200 mg PO BID PRN #60 caps 07/17/24 07/26/24 docusate sodium 100 mg capsule 100 mg PO BID #28 caps 07/17/24 07/26/24 (Colace) oxycodone 5 mg tablet 5 mg PO Q6H PRN #12 tabs 07/17/24 07/26/24 pantoprazole 40 mg tablet,delayed 40 mg PO DAILY #14 tabs 07/17/24 07/26/24 release ondansetron 4 mg disintegrating 4 mg PO Q6H PRN nausea and 07/21/24 07/26/24 tablet vomiting #30 tabs Previous Rx's ?Medication ?Instructions ?Recorded losartan 25 mg tablet 25 mg PO DAILY #90 tabs 12/14/23 alendronate 70 mg tablet 70 mg PO QWEEK #13 tabs 01/26/24 acetaminophen 500 mg tablet 1,000 mg (2 x 500 mg) PO Q8H PRN 07/17/24 pain #90 tabs aspirin 81 mg tablet,delayed 81 mg PO BID 30 days #60 tabs 07/17/24 release celecoxib 200 mg capsule (Celebrex) 200 mg PO BID PRN #60 caps 07/17/24 docusate sodium 100 mg capsule 100 mg PO BID #28 caps 07/17/24 (Colace) oxycodone 5 mg tablet 5 mg PO Q6H PRN #12 tabs 07/17/24 pantoprazole 40 mg tablet,delayed 40 mg PO DAILY #14 tabs 07/17/24 release ondansetron 4 mg disintegrating 4 mg PO Q6H PRN nausea and 07/21/24 tablet vomiting #30 tabs Allergies Allergy/AdvReac Type Severity Reaction Status Date / Time ciprofloxacin Allergy Severe effects Verified 07/26/24 15:06 my tendons, causes pain in legs. lisinopril AdvReac Mild Cough Verified 07/26/24 15:06 General Stated Complaint: Abd Prob AVELINA: 3 Exam Narrative Exam Narrative: General Appearance: Alert and oriented, no acute distress. Vital signs: Within normal limits. HEENT: Within normal limits. Respiratory: Within normal limits. Gastrointestinal: No abdominal tenderness. Skin: Warm and dry, no rash. Neurological: Normal. Course Vital Signs Vital signs: Vital Signs Temperature 36.7 C 07/26/24 15:02 Pulse 93 H 07/26/24 15:02 Respiratory Rate 14 07/26/24 15:02 Blood Pressure 101/60 07/26/24 15:02 Pulse Oximetry 96 07/26/24 15:02 Temperature 36.7 C 07/26/24 15:10 Temperature Source Oral 07/26/24 15:10 Pulse 87 07/26/24 15:45 Respiratory Rate 14 07/26/24 15:10 Blood Pressure 123/56 L 07/26/24 15:45 Blood Pressure Mean 79 07/26/24 15:45 Blood Pressure Position Sitting 07/26/24 15:10 Pulse Oximetry 97 07/26/24 15:45 Oxygen Delivery Method Room Air 07/26/24 15:10 Oxygen Flow Rate 0 07/26/24 15:10 Pain Level 0 07/26/24 15:10 Medical Decision Making EKG nonischemic, no acute change, no QTc prolongation. Initial Assessment: 74-year-old female status post left hip replacement presents with intermittent diarrhea over the past several days and intermittent epigastric discomfort. EKG performed at urgent care was nonischemic without acute changes or QTc prolongation. ED Course: - Reviewed EKG: nonischemic, no acute change, no QTc prolongation - Reviewed labs from [facility] - Patient asymptomatic, tolerating oral intake, drinking juice in the room - Encouraged to return stool cultures promptly for assessment - Discharged home in stable condition with stable vitals - Diet information reviewed Final Assessment: Patient is stable for discharge home. Slightly increased risk for C. difficile colitis. Encouraged to return stool cultures promptly for assessment. Clinical Impression: - Intermittent diarrhea - Slightly increased risk for C. difficile colitis Disposition: - Discharge: Patient discharged home in stable condition with stable vitals - Follow-Up: Should recheck scheduled appointment and return sample promptly Quality:SDOH Health Related Social Needs: Health related social needs lonely/isolated Health related social needs details none PFSH All Active Problems (Updated 07/26/24 @ 15:36 by OLIVIA Gamez) Diarrhea (Acute) Contusion of face (Acute) Face lacerations (Acute) Nausea vomiting and diarrhea (Acute) Syncope (Chronic) Vasovagal episode (Acute) History of total left hip arthroplasty (Acute 07/17/24) Hyperlipidemia (Chronic) Osteoporosis (Chronic) Dexa 01/2019. Fosamax started 01/2020 Essential hypertension (Chronic) GERD with esophagitis (Chronic) Glaucoma of right eye (Chronic) Primary osteoarthritis of right knee (Chronic) Sigmoid diverticulosis (Chronic) Medical History Right optic neuritis Negative MRI Diverticulitis of jejunum (~07/2023) Surgical History S/P colonoscopy (01/19/13) History of esophagogastroduodenoscopy (EGD) (01/19/13) History of bilateral tubal ligation (~12/1978) S/P excision of lipoma (~2002) of left medial thigh Family History Mother , at 91 Depression Hyperlipidemia Breast cancer x 2; in her 40s Stroke Hypertension Father No problems noted. Son No problems noted. Son No problems noted. Maternal Grandfather , in his 70s of [place] Myocardial infarction Hyperlipidemia Maternal Grandmother Hyperlipidemia Heart disease Hypertension Cancer Doesn't know which type Paternal Grandfather No problems noted. Paternal Grandmother No problems noted. Social History Smoking/Tobacco Use Status: Former Tobacco Use tobacco type: cigarettes Quit Date: 02/14/74 Tobacco: How many years used: 4 Second Hand Exposure: No Smoking risk assessment performed?: Yes Alcohol Intake: current Alcohol Intake frequency: holidays/special occasions only Alcohol type: beer Drug use: Never Substance use type: does not use Household members: spouse Housing: house Pets and animals: No Sexually active: Yes Current gender identity: female What is your relationship status?: How often do you talk on the phone with friends or family?: decline to answer How often do you get together with friends or relatives?: decline to answer How often do you attend mu-ism or baptist services?: decline to answer Do you belong to any clubs or organized social groups?: decline to answer Panel score (0-1 are the most socially isolated patients): 1 Duration: 15-30 minutes/day Frequency: 3-4 times per week Dinora/Adventist: Buddhism Special dinora needs: No Seatbelt use: always Drive intox or ride w/intox carry all driver: No Do you feel safe at home: Yes Do you feel safe in your relationship?: Yes Female Reproductive History Menstrual Menopause type: natural History History 2 Para 2 Hx # Term Pregnancies Multiple births Hx # Pregnancies Ectopic pregnancies AB induced Hx Number of Living Children 2 AB spontaneous
== END 2024-07-26 16:02 | disposition home or self-care (01) ==
PROVIDERS: Emergency Provider Physician Assistant; PCP Nurse Practitioner Family
DX: R19.7 Diarrhea, unspecified (principal)
CPT/HCPCS: 93005; 99283; 93010

== ENCOUNTER 2024-07-28 08:24 | Outpatient (REF) | payer MEDICARE, SELFPAY ==
[2024-07-29 19:28] LABS: Campylobacter PCR Negative (Negative); Salmonella PCR Negative (Negative); Shiga Toxin PCR Negative (Negative); Shigella/Enteroinvasive Ecoli Negative (Negative)
== END 2024-07-28 08:25 | disposition home or self-care (01) ==
LOC: LBN 08:24
PROVIDERS: PCP Nurse Practitioner Family; Visit Provider Nurse Practitioner Family
DX: R19.7 Diarrhea, unspecified (principal)
CPT/HCPCS: 87505

== ENCOUNTER 2024-07-30 13:32 | Outpatient (CLI) | payer MEDICARE, SELFPAY ==
--- NOTE | 2024-07-30 11:00 | DI.RAD_ITS ---
Exam(s) XR HIP LT AP LAT ONLY EXAM: XR HIP LT AP LAT ONLY CLINICAL HISTORY: 1ST POST OP S/P L YAMILET. TECHNIQUE: 2D digital imaging was performed. Two images were obtained. AP and lateral views were obtained. COMPARISON: CR,XR XR HIP LT COMPLETE AP PELVIS from 07/21/2024 FINDINGS: BONES: There are stable post operative changes of a left total hip arthroplasty present. No fracture or dislocation. JOINTS: The orthopedic hardware is in good position. No evidence of hardware loosening. SOFT TISSUE: Normal. IMPRESSION: Stable left total hip arthroplasty. DATA REPOSITORY: RADIATION DOSE DELIVERED:
== END 2024-07-30 13:33 | disposition home or self-care (01) ==
LOC: DIORS 13:32
PROVIDERS: PCP Nurse Practitioner Family; Referring Provider Nurse Practitioner Family; Visit Provider Student in an Organized Health Care Education/Training Program
DX: Z47.1 Aftercare following joint replacement surgery (principal); Z96.642 Presence of left artificial hip joint
CPT/HCPCS: 99024; 73502

== ENCOUNTER → 2024-08-30 10:07 | Outpatient (BNVA) | payer MEDICARE, SELFPAY | PROVIDERS: PCP Nurse Practitioner Family; Referring Provider Nurse Practitioner Family; Visit Provider Physician Assistant | DX: Z47.1 Aftercare following joint replacement surgery (principal); Z96.642 Presence of left artificial hip joint | CPT/HCPCS: 99024 ==

== ENCOUNTER 2024-09-28 11:53 | Outpatient (CLI) | payer MEDICARE, SELFPAY ==
--- NOTE | 2024-09-28 11:34 | DI.RAD_ITS ---
Exam(s) XR KNEE RT 4V AP,LAT,MARGARET,PAT EXAM: XR KNEE RT 4V AP,LAT,MARGARET,PAT CLINICAL HISTORY: OA R KNEE. TECHNIQUE: 2D digital imaging was performed. Three views. COMPARISON: No exams were available for comparison FINDINGS: BONES: No acute fracture is present. No bony destructive lesion is seen. JOINTS: There is severe degenerative changes of the medial femoral tibial joint, with a [id number] appearance. This causes significant varus angulation. There is prominent periarticular spurring and widening of the lateral femoral tibial joint space. There is spurring at the patellofemoral joint which also shows mild narrowing. A moderate-sized joint effusion is seen. SOFT TISSUE: Vascular calcifications. 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 DATA REPOSITORY: RADIATION DOSE DELIVERED:
== END 2024-09-28 11:54 | disposition home or self-care (01) ==
LOC: DIORS 11:54
PROVIDERS: PCP Nurse Practitioner Family; Referring Provider Nurse Practitioner Family; Visit Provider Physician Assistant
DX: M17.11 Unilateral primary osteoarthritis, right knee (principal)
CPT/HCPCS: 99214; 73564

== ENCOUNTER 2025-01-14 12:58 | Outpatient (CLI) | payer MEDICARE, SELFPAY ==
--- NOTE | 2025-01-14 10:45 | DI.RAD_ITS ---
Exam(s) XR STANDING ALIGNMENT EXAM: XR STANDING ALIGNMENT CLINICAL HISTORY: OA R KNEE. TECHNIQUE: 2D digital imaging was performed. Four images were obtained. COMPARISON: CR,XR XR HIP LT COMPLETE AP PELVIS from 07/21/2024 CR XR KNEE RT 4V AP,LAT,MARGARET,PAT from 09/28/2024 FINDINGS: Foreign bodies are seen overlying both the left and right hips. These include a set of keys overlying the left hip. BONES: There is again seen a left total hip arthroplasty. Osteoarthritis is seen of the right hip. The left knee is well maintained apart from mild joint space narrowing and spurring in the medial femoral tibial joint. Moderately severe degenerative changes are seen in the right hip with asymmetric narrowing and periarticular spurring in the medial femoral tibial joint. The ankles are well maintained.There is no significant leg length discrepancy. SOFT TISSUE: Atherosclerotic calcification is present. IMPRESSION: Osteoarthritis of the knees, right greater than left. DATA REPOSITORY: RADIATION DOSE DELIVERED:
== END 2025-01-14 12:59 | disposition home or self-care (01) ==
LOC: DIORS 12:58
PROVIDERS: PCP Nurse Practitioner Family; Referring Provider Nurse Practitioner Family; Visit Provider Student in an Organized Health Care Education/Training Program
DX: M17.11 Unilateral primary osteoarthritis, right knee (principal)
CPT/HCPCS: 99214; 77073